=== PATIENT | male | born 1955 | race Caucasian/White ===

== ENCOUNTER → 2016-05-10 | Outpatient (CLI) | payer MEDICAID, OTHER ==
--- NOTE | 2016-05-10 09:02 | NM ---
Nuclear medicine hepatobiliary scan. HISTORY: Pain. The patient received 5.2mCi Tc99m Mebrofenin, 8 fl oz ensure plus orally. There is normal hepatic extraction. The gallbladder is seen by 25 minutes. Ejection fraction is 42% . IMPRESSION: 1. No evidence of cholecystitis. 2. Ejection fraction 42%.
== END | disposition home or self-care (01) ==
LOC: RADNMMAIN 06:46
PROVIDERS: ATTEND Family Medicine
DX: R10.84 Generalized abdominal pain (principal)
CPT/HCPCS: 78226; A9537

== ENCOUNTER → 2016-05-12 | Outpatient (CLI) | payer MEDICAID, OTHER ==
[2016-05-12 14:55] LABS: ALT 57 U/L (21-72); AST 19 U/L (17-59); Alkaline Phosphatase 69 U/L (38-126); Anion Gap 11 mmol/L; Blood Urea Nitrogen 19 mg/dL (9-20); Calcium 9.5 mg/dL (8.4-10.2); Carbon Dioxide 26 mmol/L (22-30); Chloride 105 mmol/L (98-107); Glucose 137 mg/dL (74-99); Non-African American GFR(MDRD) >60 (>60 ml/min/1.73 sqM); Potassium 3.8 mmol/L (3.5-5.1); Sodium 142 mmol/L (137-145); Total Bilirubin 0.6 mg/dL (0.2-1.3); Total Protein 6.7 g/dL (6.3-8.2)
[2016-05-12 14:57] LABS: Hemoglobin A1C 5.2 % (4.2-6.1)
== END | disposition home or self-care (01) ==
LOC: LABWHC1 13:55
PROVIDERS: ATTEND Family Medicine
DX: E89.0 Postprocedural hypothyroidism (principal); R73.9 Hyperglycemia, unspecified
CPT/HCPCS: 36415; 80053; 83036

== ENCOUNTER → 2016-06-23 | Outpatient (CLI) | payer MEDICAID, OTHER ==
[2016-06-23 08:21] LABS: ALT 36 U/L (21-72); AST 21 U/L (17-59); Cholesterol 141 mg/dL (<200); Creatine Kinase 100 U/L (55-170); HDL Cholesterol 44 mg/dL (40-60); Triglycerides 140 mg/dL (<150)
== END | disposition home or self-care (01) ==
LOC: LABWHC1 06:59
PROVIDERS: ATTEND Internal Medicine Interventional Cardiology
DX: E11.9 Type 2 diabetes mellitus without complications (principal); E78.5 Hyperlipidemia, unspecified
CPT/HCPCS: 36415; 80061; 82550; 84450; 84460

== ENCOUNTER 2016-07-14 09:37 | Inpatient (IN) | payer MEDICAID, OTHER ==
[2016-07-14] MEDS ORDERED: SODIUM CHLORIDE 0.9% 500 ML IV STA (10:03)
[2016-07-14] MEDS ORDERED: RX INFO: IV CONTRAST WAS GIVEN 1 EACH MISC MISCELLANE PRN (10:03)
--- NOTE | 2016-07-14 10:16 | ED ---
Abdominal Pain HPI - General Chief Complaint: Abdominal Pain Stated Complaint: abd pain Time Seen by Provider: 07/14/16 09:51 Source: patient Mode of arrival: ambulatory Limitations: no limitations - History of Present Illness Initial Comments: 61-year-old male patient presents to emergency department today for complaints of lower abdominal cramping. Patient states that symptoms started yesterday morning. Patient states that the cramping has been intermittent but does get quite severe at times. Patient states he has had numerous loose stools throughout the night last night. Patient does have a history significant for diverticulitis and has recently been on 4 rounds of antibiotics since March the most recent being Levaquin that he finished yesterday. Patient does report nausea but has not had any vomiting. Patient denies any fever, chills, headaches, dizziness, back pain, chest pain, shortness of breath, or weakness. Denies any difficulty urinating, hematuria, dysuria, frequency, or urgency. Denies any dark black or bloody stools. Has had decreased appetite. - Related Data Home Medications Medication Instructions Recorded Confirmed Atorvastatin [Lipitor] 10 mg PO HS 02/08/16 07/14/16 Hydrochlorothiazide [Hydrodiuril] 25 mg PO DAILY 02/08/16 07/14/16 Losartan Potassium 100 mg PO DAILY 02/08/16 07/14/16 Metoprolol Tartrate [Lopressor] 25 mg PO DAILY 02/08/16 07/14/16 Cholecalciferol [Vitamin D3] 5,000 unit PO DAILY 03/08/16 07/14/16 metFORMIN HCL [Metformin HCl ER] 500 mg PO BID 07/14/16 07/14/16 Allergies Allergy/AdvReac Type Severity Reaction Status Date / Time Penicillins Allergy Rash/Hives Verified 07/14/16 09:48 Review of Systems ROS Statement: Those systems with pertinent positive or pertinent negative responses have been documented in the HPI. ROS Other: All systems not noted in ROS Statement are negative. Past Medical History Past Medical History: Asthma, Diabetes Mellitus, GERD/Reflux, Hyperlipidemia, Hypertension, Thyroid Disorder Additional Past Medical History / Comment(s): "slight asthma", diverticulitis, "pre diabetic", thyroid nodule, History of Any Multi-Drug Resistant Organisms: None Reported Past Surgical History: Adenoidectomy, Hernia Repair, Orthopedic Surgery, Tonsillectomy Additional Past Surgical History / Comment(s): vasectomy, cyst removed from left leg, ganglion cyst rt hand, Past Anesthesia/Blood Transfusion Reactions: No Reported Reaction Past Psychological History: No Psychological Hx Reported Smoking Status: Never smoker Past Alcohol Use History: Occasional Past Drug Use History: None Reported - Past Family History Mother Family Medical History: Cancer Additional Family Medical History / Comment(s): melanoma Father Family Medical History: Cancer General Exam Limitations: no limitations Course Vital Signs 07/14/16 09:46 Temperature 98.1 F Pulse Rate 115 H Respiratory 20 Rate Blood Pressure 137/83 O2 Sat by Pulse 97 Oximetry Medical Decision Making - Medical Decision Making 61-year-old male presented for abdominal pain, diverticulitis. Patient has had multiple recurrent episodes of diverticulitis with treatment. Patient's symptoms are active at this time. Patient will be admitted for IV antibiotics. Patient will have Dr. campos surgeon as requested a family as Dr. Schaefer is on vacation. - Lab Data Result diagrams: 07/14/16 10:21 07/14/16 10:21 Lab Results 07/14/16 07/14/16 07/14/16 Range/Units 10:21 10:21 10:21 WBC 14.6 H (3.8-10.6) k/uL RBC 5.41 (4.30-5.90) m/uL Hgb 15.8 (13.0-17.5) gm/dL Hct 47.7 (39.0-53.0) % MCV 88.1 (80.0-100.0) fL MCH 29.1 (25.0-35.0) pg MCHC 33.1 (31.0-37.0) g/dL RDW 14.5 (11.5-15.5) % Plt Count 206 (150-450) k/uL Neutrophils % 90 % Lymphocytes % 5 % Monocytes % 3 % Eosinophils % 0 % Basophils % 0 % Neutrophils # 13.1 H (1.3-7.7) k/uL Lymphocytes # 0.7 L (1.0-4.8) k/uL Monocytes # 0.5 (0-1.0) k/uL Eosinophils # 0.1 (0-0.7) k/uL Basophils # 0.0 (0-0.2) k/uL Sodium 140 (137-145) mmol/L Potassium 3.5 (3.5-5.1) mmol/L Chloride 105 (98-107) mmol/L Carbon Dioxide 23 (22-30) mmol/L Anion Gap 12 mmol/L BUN 15 (9-20) mg/dL Creatinine 1.14 (0.66-1.25) mg/dL Est GFR (MDRD) Af Amer >60 (>60 ml/min/1.73 sqM) Est GFR (MDRD) Non-Af >60 (>60 ml/min/1.73 sqM) Glucose 134 H (74-99) mg/dL Plasma Lactic Acid Darrick 1.0 (0.7-2.0) mmol/L Calcium 9.4 (8.4-10.2) mg/dL Total Bilirubin 1.1 (0.2-1.3) mg/dL AST 13 L (17-59) U/L ALT 26 (21-72) U/L Alkaline Phosphatase 63 (38-126) U/L Total Protein 6.7 (6.3-8.2) g/dL Albumin 4.1 (3.5-5.0) g/dL Amylase 39 (30-110) U/L Lipase 49 (23-300) U/L Urine Color Urine Appearance (Clear) Urine pH (5.0-8.0) Urine Protein (Negative) Urine Glucose (UA) (Negative) Urine Ketones (Negative) Urine Blood (Negative) Urine Nitrate (Negative) Urine Bilirubin (Negative) Urine Urobilinogen (<2.0) mg/dL Ur Leukocyte Esterase (Negative) Urine RBC (0-5) /hpf Urine WBC (0-5) /hpf 07/14/16 Range/Units 12:05 WBC (3.8-10.6) k/uL RBC (4.30-5.90) m/uL Hgb (13.0-17.5) gm/dL Hct (39.0-53.0) % MCV (80.0-100.0) fL MCH (25.0-35.0) pg MCHC (31.0-37.0) g/dL RDW (11.5-15.5) % Plt Count (150-450) k/uL Neutrophils % % Lymphocytes % % Monocytes % % Eosinophils % % Basophils % % Neutrophils # (1.3-7.7) k/uL Lymphocytes # (1.0-4.8) k/uL Monocytes # (0-1.0) k/uL Eosinophils # (0-0.7) k/uL Basophils # (0-0.2) k/uL Sodium (137-145) mmol/L Potassium (3.5-5.1) mmol/L Chloride (98-107) mmol/L Carbon Dioxide (22-30) mmol/L Anion Gap mmol/L BUN (9-20) mg/dL Creatinine (0.66-1.25) mg/dL Est GFR (MDRD) Af Amer (>60 ml/min/1.73 sqM) Est GFR (MDRD) Non-Af (>60 ml/min/1.73 sqM) Glucose (74-99) mg/dL Plasma Lactic Acid Darrick (0.7-2.0) mmol/L Calcium (8.4-10.2) mg/dL Total Bilirubin (0.2-1.3) mg/dL AST (17-59) U/L ALT (21-72) U/L Alkaline Phosphatase (38-126) U/L Total Protein (6.3-8.2) g/dL Albumin (3.5-5.0) g/dL Amylase (30-110) U/L Lipase (23-300) U/L Urine Color Yellow Urine Appearance Clear (Clear) Urine pH 7.5 (5.0-8.0) Urine Protein 1+ H (Negative) Urine Glucose (UA) Negative (Negative) Urine Ketones Trace H (Negative) Urine Blood Negative (Negative) Urine Nitrate Negative (Negative) Urine Bilirubin Negative (Negative) Urine Urobilinogen <2.0 (<2.0) mg/dL Ur Leukocyte Esterase Negative (Negative) Urine RBC 1 (0-5) /hpf Urine WBC 1 (0-5) /hpf - EKG Data -: EKG Interpreted by [place] EKG obtained at 10:32 AM reveals sinus tachycardia with occasional premature ventricular complexes, nonspecific T-wave abnormality, prolonged QT, ventricular at 106, FL interval 194, QRS 80, QT 444, QTC 589. 07/14/16 11:35 Disposition Clinical Impression: Pancolitis, Diverticulitis Disposition: ADMITTED IP TO THIS [facility] Condition: Stable Time of Disposition: 12:22
[2016-07-14 10:31] LABS: Basophils % (A) 0 %; CH 30.6; CHCM 34.9; Eosinophils # (A) 0.1 k/uL (0-0.7); Eosinophils % (A) 0 %; HCT 47.7 % (39.0-53.0); HDW 2.75; HGB 15.8 gm/dL (13.0-17.5); Luc # (Auto) 0.25; Luc % (Auto) 2; Lymphocytes # (A) 0.7 k/uL (1.0-4.8); Lymphocytes % (A) 5 %; MCH 29.1 pg (25.0-35.0); MCHC 33.1 g/dL (31.0-37.0); MCV 88.1 fL (80.0-100.0); Mean Platelet Volume 7.2; Monocytes # (A) 0.5 k/uL (0-1.0); Monocytes % (A) 3 %; Neutrophils # (A) 13.1 k/uL (1.3-7.7); Neutrophils % (A) 90 %; RBC 5.41 m/uL (4.30-5.90); RDW 14.5 % (11.5-15.5); WBC 14.6 k/uL (3.8-10.6); WBC (Perox) 14.64
[2016-07-14 10:40] LABS: ALT 26 U/L (21-72); AST 13 U/L (17-59); Alkaline Phosphatase 63 U/L (38-126); Amylase 39 U/L (30-110); Anion Gap 12 mmol/L; Blood Urea Nitrogen 15 mg/dL (9-20); Calcium 9.4 mg/dL (8.4-10.2); Carbon Dioxide 23 mmol/L (22-30); Chloride 105 mmol/L (98-107); Glucose 134 mg/dL (74-99); Non-African American GFR(MDRD) >60 (>60 ml/min/1.73 sqM); Potassium 3.5 mmol/L (3.5-5.1); Sodium 140 mmol/L (137-145); Total Bilirubin 1.1 mg/dL (0.2-1.3); Total Protein 6.7 g/dL (6.3-8.2)
--- NOTE | 2016-07-14 10:55 | XR ---
EXAMINATION TYPE: XR KUB DATE OF EXAM: 07/14/2016 10:49 AM CLINICAL DATA: 61-year-old male with generalized abdominal pain and nausea, PHH COMPARISON: None FINDINGS: Lung bases are clear. No evidence for free intraperitoneal air. Note dilated bowel loops. A couple small air-fluid levels in the upper abdomen. Mild scattered stool is noted. No suspicious calcifications seen. IMPRESSION: Nonspecific, nonobstructive bowel gas pattern. No free air. A couple small air-fluid levels in the up per abdomen could reflect a regional ileus or enteritis.
--- NOTE | 2016-07-14 11:42 | CT ---
EXAMINATION TYPE: CT abdomen pelvis w con DATE OF EXAM: 07/14/2016 11:21 AM COMPARISON: 02/14/2012 HISTORY: 61-year-old male with abdominal pain TECHNIQUE: Contiguous axial scanning of the abdomen and pelvis following administration of 100 ml Omn ipaque 300 IV contrast. Delayed images through the kidneys and coronal/sagittal reconstructions perf ormed. CT DLP: 1651.56 mGycm Automated exposure control for dose reduction was used. FINDINGS: Heart is normal size without pericardial effusion. Mild dependent atelectasis without pleural effusio n. There is diminished attenuation of the liver in comparison to the spleen on portal venous phase which could reflect hepatic steatosis. Portal venous system is patent. No biliary ductal dilatation. Gallbladder, adrenal glands, left kidney, spleen, and pancreas show no gross abnormality. Punctate 2 mm nonobstructive calculus lower pole right kidney. Symmetric uptake and excretion of contrast by bot h kidneys. No dilated small bowel, free fluid, or free air. Normal appendix. There is variable circumferential wall thickening involving essentially the entire colon but the grea test degree of inflammation with some corresponding fat stranding at the proximal to mid sigmoid with moderate wall thickening at the mid sigmoid. There is diffuse colonic diverticulosis. The distal sigmoid and rectum are relatively spared Bladder is nondistended. Prostate gland mildly enlarged at 4.9 cm wide. No abnormal not fluid collect ion in the pelvis or pelvic lymphadenopathy. Changes relating to prior vasectomy. Bones: Mild degenerative changes of the hips. No osseous destructive process. IMPRESSION: 1. PANCOLONIC WALL THICKENING SPARING THE DISTAL SIGMOID AND RECTUM. WALL THICKENING AND INFLAMMATION IS MODERATE AT THE MID SIGMOID. CORRELATE FOR INFECTIOUS OR INFLAMMATORY COLITIS. DIRECT VISUALIZATI ON RECOMMENDED AFTER SUCCESSFUL MANAGEMENT. 2. THERE IS DIFFUSE COLONIC DIVERTICULOSIS. SUPERIMPOSED ACUTE DIVERTICULITIS INVOLVING THE SIGMOID C OLON WOULD BE DIFFICULT TO EXCLUDED.
[2016-07-14 12:16] LABS: Appearance,Urine Clear (Clear); Bilirubin,Urine Negative (Negative); Glucose,Urine (UA) Negative (Negative); Ketones,Urine Trace (Negative); Leukocyte Esterase,Urine Negative (Negative); Nitrite,Urine Negative (Negative); PH, Urine 7.5 (5.0-8.0); Particle Count 1039; Protein,Urine 1+ (Negative); RBC,Urine 1 /hpf (0-5); UA Billing (MACRO vs. MICRO) MICRO; Urobilinogen,Urine <2.0 mg/dL (<2.0); WBC,Urine 1 /hpf (0-5)
[2016-07-14] MEDS ORDERED: ONDANSETRON 4 MG/2 ML VIAL IVP STA (12:21)
[2016-07-14] MEDS ORDERED: HYDROmorphone 1 MG/ML 1 ML SYRINGE IVP STA (12:21)
[2016-07-14] MEDS ORDERED: metroNIDAZOLE-NS PMX 500 MG in SALINE 1 100ML.BAG IVPB STA (12:27)
[2016-07-14] MEDS ORDERED: NALOXONE 0.4 MG/ML 1 ML VIAL IV PRN (12:27)
[2016-07-14] MEDS ORDERED: LEVOFLOXACIN 750MG-D5W PMX 750 MG in DEXTROSE/WATER 1 150ML.BAG IVPB STA (12:27)
[2016-07-14] MEDS ORDERED: ACETAMINOPHEN TAB 325 MG TAB PO PRN (12:27)
[2016-07-14] MEDS ORDERED: HYDROmorphone 1 MG/ML 1 ML SYRINGE IV PRN (12:27)
[2016-07-14 12:30] LABS: Specific Gravity,Urine >1.050 (1.001-1.035)
--- NOTE | 2016-07-14 14:56 | P.HPIM ---
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 High for the last few years and was diagnosed previously of recurrent diverticulitis last colonoscopy was 3 years ago patient was recommended that time not to go for any surgical intervention. Patient had several episode of diverticulitis since March 2016 with recurrent episode treated with antibiotic for few days symptom disappeared with recur shortly after. He has been on Cipro for long time. Patient presented to the emergency department at [facility] today complaining of worsening abdominal pain left lower quadrant along with low -grade temperature nausea with no hemorrhage or bleed. CAT scan of the abdomen surprisingly showed pancolitis along with scattered diverticulitis all along the colon area. Patient was started on IV antibiotic with Levaquin was start Flagyl and admit patient to the hospital consult general surgery. Review of Systems Constitutional: Reports anorexia, Reports fatigue, Reports lethargy, Reports malaise, Reports poor appetite, Reports weakness, Reports weight loss, Denies as per HPI, Denies chills, Denies chronic headaches, Denies chronic pain, Denies daytime sleepiness, Denies fever, Denies night sweats, Denies sweats, Denies weight gain Eyes: bilateral as per HPI Ears: bilateral: decreased hearing Ears, nose, mouth and throat: Reports ant. neck pain, Reports nasal congestion, Reports nasal discharge, Reports sinus pain, Reports sinus pressure, Denies as per HPI, Denies bleeding gums, Denies dental pain, Denies dysphagia, Denies epistaxis, Denies headache, Denies hoarseness, Denies mouth pain, Denies neck fullness/pressure, Denies neck lump, Denies nose pain, Denies odynophagia, Denies post-nasal drip, Denies swelling in mouth, Denies swelling in throat, Denies sore throat, Denies vertigo, Denies voice changes Cardiovascular: Reports chest pain, Reports dyspnea on exertion, Reports edema, Reports irregular heart beat, Reports leg edema, Reports orthopnea, Reports palpitations, Reports rapid heart beat, Reports shortness of breath, Denies as per HPI, Denies claudication, Denies decreased exercise tolerance, Denies high blood pressure, Denies lightheadedness, Denies paroxysmal nocturnal dyspnea, Denies phlebitis, Denies syncope Respiratory: Reports congestion, Reports cough, Reports cough with sputum, Reports dyspnea, Reports respiratory infections, Reports wheezing, Denies as per HPI, Denies excessive sputum, Denies hemoptysis, Denies home oxygen, Denies pain, Denies pain on inspiration, Denies pleurisy, Denies sleep apnea, Denies snoring Gastrointestinal: Reports abdominal pain, Reports belching, Reports bloating, Reports change in bowel habits, Reports dyspepsia, Reports early satiety, Reports excessive gas, Reports indigestion, Reports nausea, Denies as per HPI, Denies BRBPR, Denies coffee ground emesis, Denies constipation, Denies diarrhea , Denies heartburn, Denies hematemesis, Denies hematochezia, Denies jaundice, Denies lactose intolerance, Denies loss of appetite, Denies melena, Denies vomiting Genitourinary: Reports flank pain, Reports nocturia, Reports polyuria, Denies as per HPI, Denies decreased libido, Denies difficulties fathering child, Denies discharge, Denies dysuria, Denies erectile dysfunction, Denies genital pain, Denies genital sores, Denies hematuria, Denies impotence, Denies incontinence, Denies kidney stones, Denies testicular lump, Denies testicular pain, Denies urinary frequency, Denies urinary hesitancy, Denies urinary retention Musculoskeletal: Reports limitation of motion, Reports muscle cramps, Reports myalgias, Reports neck pain, Reports neck stiffness, Reports prior amputations, Denies as per HPI, Denies arm numbness/tingling, Denies atrophy, Denies fractures, Denies frequent falls, Denies gait dysfunction, Denies hot joints, Denies leg numbness/tingling, Denies loss of height, Denies low back pain, Denies morning stiffness, Denies muscle weakness, Denies redness of joints, Denies shooting arm pain, Denies shooting leg pain Musculoskeletal: bilateral: ankle pain, ankle stiffness Integumentary: Reports acne, Reports dryness, Reports foot/leg ulcers, Denies as per HPI, Denies boils, Denies brittle nails, Denies change in hair/nails, Denies color changes, Denies darkening of skin, Denies depigmentation, Denies growths, Denies hirsutism, Denies lesions, Denies onychomycosis, Denies pruritus , Denies rash, Denies sores, Denies striae, Denies unusual bruising, Denies wounds Neurological: Reports hearing difficulties, Reports lack of coordination, Reports tingling, Reports transient paralysis, Denies as per HPI, Denies aphasia , Denies balance difficulties, Denies burning pain, Denies change in mentation, Denies change in smell/taste, Denies change in speech, Denies confusion, Denies convulsions, Denies double vision, Denies gait dysfunction, Denies head injury, Denies headaches, Denies loss of vision, Denies memory loss, Denies migraines, Denies motor disturbance, Denies numbness, Denies paralysis, Denies paresthesias , Denies seizures, Denies sensory deficit, Denies spasticity, Denies syncope, Denies tic, Denies tremors, Denies vertigo, Denies weakness, Denies visual changes Psychiatric: Denies as per HPI, Denies anhedonia, Denies anxiety, Denies anxiety attacks, Denies change in appetite, Denies change in libido, Denies change in sleep habits, Denies confusion, Denies depression, Denies difficulty concentrating, Denies disorientation, Denies hallucinations, Denies hopelessness , Denies hypersomnia, Denies insomnia, Denies irritability, Denies memory loss, Denies mood swings, Denies paranoia, Denies sadness/tearfulness, Denies sleep disturbances, Denies suicidal ideation Endocrine: Reports excessive thirst, Reports fatigue, Reports nocturia, Denies as per HPI, Denies cold intolerance, Denies deepening of the voice, Denies excessive sweating, Denies flushing, Denies heat intolerance, Denies high blood sugars, Denies increase in ring/shoe/hat size, Denies low blood sugars, Denies palpitations, Denies polydipsia, Denies polyphagia, Denies polyuria, Denies proptosis, Denies recent glucocorticoid use, Denies thyroid mass, Denies weight change Hematologic/Lymphatic: Reports easy bleeding, Reports easy bruising, Denies as per HPI, Denies lymphadenopathy, Denies lymphedema, Denies thrombophilia Allergic/Immunologic: Reports allergic rhinitis, Denies as per HPI, Denies anaphylaxis, Denies angioedema, Denies gluten intolerance, Denies persistent infections, Denies seasonal allergies, Denies urticaria, Denies wheezing Past Medical History Past Medical History: Asthma, Diabetes Mellitus, GERD/Reflux, Hyperlipidemia, Hypertension, Thyroid Disorder Additional Past Medical History / Comment(s): "slight asthma", diverticulitis, "pre diabetic", thyroid nodule- with removal, History of Any Multi-Drug Resistant Organisms: None Reported Past Surgical History: Adenoidectomy, Hernia Repair, Orthopedic Surgery, Tonsillectomy Additional Past Surgical History / Comment(s): R thyroid lobectomy, vasectomy, cyst removed from left leg, ganglion cyst rt hand, L inguinal hernia repair x2, EGD/colonoscopy 3. Past Anesthesia/Blood Transfusion Reactions: No Reported Reaction Past Psychological History: No Psychological Hx Reported Additional Psychological History / Comment(s): Pt resides with spouse of 34 yrs. He is independent. Smoking Status: Never smoker Past Alcohol Use History: Occasional Past Drug Use History: None Reported - Past Family History Mother Family Medical History: Cancer Additional Family Medical History / Comment(s): melanoma Father Family Medical History: Cancer Medications and Allergies Home Medications Medication Instructions Recorded Confirmed Type Atorvastatin [Lipitor] 10 mg PO HS 02/08/16 07/14/16 History Hydrochlorothiazide [Hydrodiuril] 25 mg PO DAILY 02/08/16 07/14/16 History Losartan Potassium 100 mg PO DAILY 02/08/16 07/14/16 History Metoprolol Tartrate [Lopressor] 25 mg PO DAILY 02/08/16 07/14/16 History Cholecalciferol [Vitamin D3] 5,000 unit PO DAILY 03/08/16 07/14/16 History metFORMIN HCL [Metformin HCl ER] 500 mg PO BID 07/14/16 07/14/16 History Allergies Allergy/AdvReac Type Severity Reaction Status Date / Time Penicillins Allergy Rash/Hives Verified 07/14/16 09:48 Physical Exam - Constitutional General appearance: no average body habitus, cooperative, no disheveled, no mild distress, no morbidly obese, no acute distress, no obese, no severe distress, no thin - EENT Eyes: no abnormal pupil, no anicteric sclerae, no disc margins sharp, no edentulous, no EOMI, no PERRLA, fundus normal, no photophobia, no dentition normal, no poor dentition, no ptosis, no scleral icterus, normal appearance ENT: no hard of hearing, no hearing grossly normal, no NA/AT, normal oropharynx , no other, no pharyngeal erythema, no thrush, no tonsillar exudates, no tonsillar swelling Ears: bilateral: normal, bulging - Neck Neck: no lymphadenopathy, normal ROM, no other, no rigidity, no stridor, no thyromegaly Carotids: bilateral: upstroke normal, upstroke delayed Thyroid: bilateral: normal size, enlarged - Respiratory Respiratory: bilateral: CTA, diminished, dullness, rales - Cardiovascular Rhythm: regular Heart sounds: normal: S1, S2 Abnormal Heart Sounds: systolic murmur, S3 Gallop - Gastrointestinal General gastrointestinal: no absent bowel sounds, no decreased bowel sounds, distended, no hepatomegaly, no hyperactive bowel sounds, no normal bowel sounds , organomegaly, no rigid, no scaphoid, no soft, no splenomegaly, tenderness, no umbilical hernia, no ventral hernia - Integumentary Integumentary: no calor, no cellulitis, no cyanotic, no decreased turgor, no flushed, no jaundiced, normal, no normal turgor, pale, rash, no ulcer - Neurologic Neurologic: CNII-XII intact - Musculoskeletal Musculoskeletal: gait normal, generalized weakness, no strength equal bilaterally, no right sided weakness, no left sided weakness - Psychiatric Psychiatric: A&O x's 3, appropriate affect Results CBC & Chem 7: 07/14/16 10:21 07/14/16 10:21 Thrombosis Risk Factor Assmnt - DVT/VTE Prophylaxis DVT/VTE Prophylaxis: Pharmacologic Prophylaxis ordered, Mechanical Prophylaxis ordered - Choose All That Apply Any of the Below Risk Factors Present?: Yes Each Factor Represents 1 point: Obesity (BMI >25) Other Risk Factors: Yes Each Risk Factor Represents 2 Points: Age 61-74 years Other congenital or acquired thrombophilia - If yes, enter type in comment: No Thrombosis Risk Factor Assessment Total Risk Factor Score: 3 Thrombosis Risk Factor Assessment Level: Moderate Risk Assessment and Plan Plan: 1 severe abdominal pain: Combination of pancolitis along with recurrent diverticulitis will treat diverticulitis patient might require one of medication for colitis slightly but long-term it's all depend of the next expected colonoscopy which will be done in few weeks. 2 severe diverticulitis: Patient will be on Levaquin and Flagyl surgical consultation will be done with the severity of the symptom and recurrent symptoms several times in 1 year patient might require partial colon resection as a best next step after the infection is treated and subtle something again to discuss with the general surgery in detail and planted as an outpatient after this episode this treated. 3 pancolitis: Most likely ischemic colitis versus UC with the current symptoms patient infection be treated for now and CT can be repeated in a few weeks along with colonoscopy to be scheduled in a few weeks. 4 diabetes: Patient has been on metformin continue Accu-Chek with sliding-scale coverage as well. 5 hyperlipidemia: Continue Lipitor 10 mg daily. 6 hypertension: Remain on Hydrea diarrhea along with Lopressor 25 mg a day and losartan 100 mg daily. 7 severe GERD: Patient will be on Pepcid 20 mg daily. 8 DVT prophylaxis: Patient be on heparin 5000 units obtain his twice a day. CODE STATUS: Full code. Expectation from this admission: Patient be in the hospital for more than 2 nights.
--- NOTE | 2016-07-14 15:36 | P.GSCN ---
History of Present Illness Consult date: 07/14/16 Reason for Consult: Abdominal pain History of present illness: Patient with a history of recurrent diverticulitis. Most severe recent episode was in March. He was treated with 3-4 courses of antibiotics at that time. About a week ago the patient started having pain was started on antibiotics. Those antibiotics stopped on Sunday. Yesterday the patient had recurrent pain in the left lower quadrant. It was more severe today. He came to the hospital for evaluation. The patient is been following with Dr. High. His last colonoscopy was 3-4 years ago. Denies rectal bleeding or melena. Some crampy pain. No diarrhea. No fevers. CT shows inflammatory changes however the colon is fairly collapsed limiting the evaluation. The most impressive inflammatory change seems to be in the proximal sigmoid colon. Pandiverticulosis is noted. Patient slightly tachycardic on arrival. White blood cell count 14. Review of Systems The patient denies any acute changes in his vision or hearing, no dysphagia or odynophagia, no chest pain or shortness of breath, no dysuria or hematuria, no headache, no runny nose, no rectal bleeding or melena, no unexplained weight loss Past Medical History Past Medical History: Asthma, Diabetes Mellitus, GERD/Reflux, Hyperlipidemia, Hypertension, Thyroid Disorder Additional Past Medical History / Comment(s): "slight asthma", diverticulitis, "pre diabetic", thyroid nodule- with removal, History of Any Multi-Drug Resistant Organisms: None Reported Past Surgical History: Adenoidectomy, Hernia Repair, Orthopedic Surgery, Tonsillectomy Additional Past Surgical History / Comment(s): R thyroid lobectomy, vasectomy, cyst removed from left leg, ganglion cyst rt hand, L inguinal hernia repair x2, EGD/colonoscopy 3. Past Anesthesia/Blood Transfusion Reactions: No Reported Reaction Past Psychological History: No Psychological Hx Reported Additional Psychological History / Comment(s): Pt resides with spouse of 34 yrs. He is independent. Smoking Status: Never smoker Past Alcohol Use History: Occasional Past Drug Use History: None Reported - Past Family History Mother Family Medical History: Cancer Additional Family Medical History / Comment(s): melanoma Father Family Medical History: Cancer Medications and Allergies Home Medications Medication Instructions Recorded Confirmed Type Atorvastatin [Lipitor] 10 mg PO HS 02/08/16 07/14/16 History Hydrochlorothiazide [Hydrodiuril] 25 mg PO DAILY 02/08/16 07/14/16 History Losartan Potassium 100 mg PO DAILY 02/08/16 07/14/16 History Metoprolol Tartrate [Lopressor] 25 mg PO DAILY 02/08/16 07/14/16 History Cholecalciferol [Vitamin D3] 5,000 unit PO DAILY 03/08/16 07/14/16 History metFORMIN HCL [Metformin HCl ER] 500 mg PO BID 07/14/16 07/14/16 History Allergies Allergy/AdvReac Type Severity Reaction Status Date / Time Penicillins Allergy Rash/Hives Verified 07/14/16 09:48 Surgical - Exam Vital Signs Temp Pulse Resp BP Pulse Ox 98.1 F 115 H 20 137/83 97 07/14/16 09:46 07/14/16 09:46 07/14/16 09:46 07/14/16 09:46 07/14/16 09:46 Physical exam: General: Well-developed, well-nourished HEENT: Normocephalic, sclerae nonicteric Abdomen: Left lower quadrant tenderness, no rebound or guarding Extremities: No edema Neuro: Alert and oriented Results - Labs 07/14/16 10:21 07/14/16 10:21 Assessment and Plan (1) Diverticulitis Narrative/Plan: Given the patient's history and presentation still suspect diverticulitis involving the proximal sigmoid colon. Continue IV antibiotics. Continue liquid diet only. We'll follow with you. Status: Acute
--- NOTE | 2016-07-14 18:22 | P.CONS ---
History of Present Illness - Reason for Consult Consult date: 07/14/16 - Chief Complaint Increasing abdominal pain - History of Present Illness Very pleasant 61-year-old male presents to the emergency center with a several-day history of increasing abdominal pain that has critically worsened today. It was somewhat generalized associated with some nausea and diarrhea fatigue and malaise and low-grade fever. Was not having significant chills or rigors. Also has been feeling poorly with inability to eat over the last couple of days. Because of the increasing symptoms presented emergency center. Computed tomography scan was performed and the patient has been admitted. The concerns to colitis the infectious diseases consultation was requested. This pleasant gentleman relates this evening is feeling slightly better. Pain control is slightly better. He is looking forward to eating some of his clear liquid dinner because he finally has an appetite is not had in 48 hours. He's had some loose stool but no srinath melena or hematochezia. He does relate since March is having allowing significant difficulties related to his diverticulitis. He was back home in [place] when he had about. It is now been on at least 4 courses of antibiotic therapy with Cipro or Levaquin and Flagyl with ongoing symptoms. As a child he difficulties with penicillin as far as a reaction. No further clarification. Review of Systems Feels poorly with abdominal pain. Nausea is improved. HEENT:Denies headache or acute visual change. Denies sinus or mouth discomforts. Denies neck stiffness or pain. Denies significant oral cavity pain. Denies difficulty on swallowing. Lungs: Denies significant shortness of breath, cough, sputum production, or hemoptysis. Cardiovascular: Denies significant shortness of breath, chest pain, chest wall pain, orthopnea, dyspnea on exertion, syncope Gastrointestinal: As per the HPI. No hematemesis or melena. No significant melena or hematochezia. Musculoskeletal: denies significant myalgias or arthralgias. No new joint swelling. Denies new back pain. Skin: Denies new rash or lesions. No new ulcers or wounds are related.. Neuro: Denies headache or visual change. Denies any new onset weakness or difficulty with ambulation. Denies falls or seizures. Psychiatric:Denies anxiety or depression. Endocrine: Denies significant fatigue, denies significant weight loss or weight gain. Past Medical History Past Medical History: Asthma, Diabetes Mellitus, GERD/Reflux, Hyperlipidemia, Hypertension, Thyroid Disorder Additional Past Medical History / Comment(s): "slight asthma", diverticulitis, "pre diabetic", thyroid nodule- with removal, History of Any Multi-Drug Resistant Organisms: None Reported Past Surgical History: Adenoidectomy, Hernia Repair, Orthopedic Surgery, Tonsillectomy Additional Past Surgical History / Comment(s): R thyroid lobectomy, vasectomy, cyst removed from left leg, ganglion cyst rt hand, L inguinal hernia repair x2, EGD/colonoscopy 3. Past Anesthesia/Blood Transfusion Reactions: No Reported Reaction Past Psychological History: No Psychological Hx Reported Additional Psychological History / Comment(s): Pt resides with spouse of 34 yrs. He is independent. Retired. No significant tobacco or alcohol use. No recreational drug use. Traveled back home to [place] in the fall. No recent international travel. Pet dog in the home Smoking Status: Never smoker Past Alcohol Use History: Occasional Past Drug Use History: None Reported - Past Family History Mother Family Medical History: Cancer Additional Family Medical History / Comment(s): melanoma Father Family Medical History: Cancer Medications and Allergies Home Medications and Allergies Comment(s): Current Medications Acetaminophen (Tylenol Tab) 650 mg PO Q6HR PRN PRN Reason: Mild Pain or Fever > 100.5 Hydrocodone Bitart/Acetaminophen (Coram 5-325) 1 each PO Q4HR PRN PRN Reason: Moderate Pain Atorvastatin Calcium (Lipitor) 10 mg PO HS [facility] Hydrochlorothiazide (Hydrodiuril) 25 mg PO DAILY [facility] Hydromorphone HCl (Dilaudid) 1 mg IV Q3HR PRN PRN Reason: Severe Pain Last Admin: 07/14/16 16:00 Dose: 1 mg Sodium Chloride (Saline 0.9%) 1,000 mls @ 75 mls/hr IV .[id number] [facility] Losartan Potassium (Cozaar) 100 mg PO DAILY [facility] Metformin HCl (Glucophage) 500 mg PO AC-BID [facility] Metoprolol Tartrate (Lopressor) 25 mg PO DAILY [facility] Miscellaneous Information (Rx Info: Iv Contrast Was Given) 1 each MISCELLANE DAILY PRN PRN Reason: Per Protocol Stop: 07/16/16 10:08 Last Admin: 07/14/16 10:23 Dose: 1 each Naloxone HCl (Narcan) 0.2 mg IV Q2M PRN PRN Reason: Opioid Reversal Ondansetron HCl (Zofran) 4 mg IVP Q8HR PRN PRN Reason: Nausea And Vomiting Pantoprazole Sodium (Protonix) 40 mg IVP DAILY [facility] Home Medications Medication Instructions Recorded Confirmed Type Atorvastatin [Lipitor] 10 mg PO HS 02/08/16 07/14/16 History Hydrochlorothiazide [Hydrodiuril] 25 mg PO DAILY 02/08/16 07/14/16 History Losartan Potassium 100 mg PO DAILY 02/08/16 07/14/16 History Metoprolol Tartrate [Lopressor] 25 mg PO DAILY 02/08/16 07/14/16 History Cholecalciferol [Vitamin D3] 5,000 unit PO DAILY 03/08/16 07/14/16 History metFORMIN HCL [Metformin HCl ER] 500 mg PO BID 07/14/16 07/14/16 History Allergies Allergy/AdvReac Type Severity Reaction Status Date / Time Penicillins Allergy Rash/Hives Verified 07/14/16 09:48 Physical Exam Vitals: Vital Signs Temp Pulse Resp BP Pulse Ox 07/14/16 14:15 97.0 F L 107 H 16 127/78 99 Very pleasant 61-year-old male who is somewhat uncomfortable this time due to his abdominal pain but relates is feeling slightly better HEENT: Anicteric conjunctiva are pink and moist nasal mucosa grossly intact without significant lesions, there is no thrush. I'll cavity slightly dry dentition in good order Neck: The neck is supple without significant lymphadenopathy or thyromegaly. Lungs: Good bilateral air entry without significant crackles or wheezing. There is no significant bronchial sounds. There is no egophony or dullness. Heart: Regular rate and rhythm with an audible S1-S2, no S3 no S4. There is no significant murmur click or rub, PMI was nondisplaced. Abdomen: Soft distinct tenderness in the left lower quadrant. There is no palpable mass however. Some rebound to the left lower quadrant without srinath rigidity Extremities: The upper extremities have excellent pulses they are symmetric, no significant petechiae or telangiectasia. No splinter hemorrhages were noted. The lower extremities are free from significant edema. The peripheral pulses were 2+ and symmetric. Neuro: Awake alert oriented to person place and time. There are no acute new gross focal sensory motor deficits. Skin is without rash or breakdown Results Results: Laboratory Results WBC 14.6 k/uL (3.8-10.6) H 07/14/16 10:21 RBC 5.41 m/uL (4.30-5.90) 07/14/16 10:21 Hgb 15.8 gm/dL (13.0-17.5) 07/14/16 10: Hct 47.7 % (39.0-53.0) 07/14/16 10: MCV 88.1 fL (80.0-100.0) 07/14/16 10: MCH 29.1 pg (25.0-35.0) 07/14/16 10: MCHC 33.1 g/dL (31.0-37.0) 07/14/16 10: RDW 14.5 % (11.5-15.5) 07/14/16 10: Plt Count 206 k/uL (150-450) 07/14/16 10: Neutrophils % 90 % 07/14/16 10:21 Lymphocytes % 5 % 07/14/16 10: Monocytes % 3 % 07/14/16 10:21 Eosinophils % 0 % 07/14/16 10: Basophils % 0 % 07/14/16 10:21 Neutrophils # 13.1 k/uL (1.3-7.7) H 07/14/16 10:21 Lymphocytes # 0.7 k/uL (1.0-4.8) L 07/14/16 10:21 Monocytes # 0.5 k/uL (0-1.0) 07/14/16 10: Eosinophils # 0.1 k/uL (0-0.7) 07/14/16 10: Basophils # 0.0 k/uL (0-0.2) 07/14/16 10:21 Sodium 140 mmol/L (137-145) 07/14/16 10:21 Potassium 3.5 mmol/L (3.5-5.1) 07/14/16 10: Chloride 105 mmol/L (98-107) 07/14/16 10:21 Carbon Dioxide 23 mmol/L (22-30) 07/14/16 10:21 Anion Gap 12 mmol/L 07/14/16 10:21 BUN 15 mg/dL (9-20) 07/14/16 10:21 Creatinine 1.14 mg/dL (0.66-1.25) 07/14/16 10:21 Est GFR (MDRD) Af Amer >60 (>60 ml/min/1.73 sqM) 07/14/16 10:21 Est GFR (MDRD) Non-Af >60 (>60 ml/min/1.73 sqM) 07/14/16 10:21 Glucose 134 mg/dL (74-99) H 07/14/16 10:21 Plasma Lactic Acid Darrick 1.0 mmol/L (0.7-2.0) 07/14/16 10:21 Calcium 9.4 mg/dL (8.4-10.2) 07/14/16 10:21 Total Bilirubin 1.1 mg/dL (0.2-1.3) 07/14/16 10:21 AST 13 U/L (17-59) L 07/14/16 10:21 ALT 26 U/L (21-72) 07/14/16 10:21 Alkaline Phosphatase 63 U/L (38-126) 07/14/16 10:21 Total Protein 6.7 g/dL (6.3-8.2) 07/14/16 10:21 Albumin 4.1 g/dL (3.5-5.0) 07/14/16 10:21 Amylase 39 U/L (30-110) 07/14/16 10:21 Lipase 49 U/L (23-300) 07/14/16 10:21 Urine Color Yellow 07/14/16 12:05 Urine Appearance Clear (Clear) 07/14/16 12:05 Urine pH 7.5 (5.0-8.0) 07/14/16 12:05 Ur Specific [place] >1.050 (1.001-1.035) H 07/14/16 12:05 Urine Protein 1+ (Negative) H 07/14/16 12:05 Urine Glucose (UA) Negative (Negative) 07/14/16 12:05 Urine Ketones Trace (Negative) H 07/14/16 12:05 Urine Blood Negative (Negative) 07/14/16 12:05 Urine Nitrate Negative (Negative) 07/14/16 12:05 Urine Bilirubin Negative (Negative) 07/14/16 12:05 Urine Urobilinogen <2.0 mg/dL (<2.0) 07/14/16 12:05 Ur Leukocyte Esterase Negative (Negative) 07/14/16 12:05 Urine RBC 1 /hpf (0-5) 07/14/16 12:05 Urine WBC 1 /hpf (0-5) 07/14/16 12:05 CBC & Chem 7: 07/14/16 10:21 07/14/16 10:21 Assessment and Plan (1) Diverticulitis Narrative/Plan: Very pleasant 61-year-old male presents to Hospital with a several-day history of increasing abdominal pain. Associated with nausea and anorexia and inability to eat. Associate with some loose stool but not srinath melena or hematochezia. He was having distinct crampy abdominal pain is now more localized to the left lower quadrant. The computed tomography scan has been reviewed personally with the radiologist. She had evidence of the significant area of diverticulitis to the left lower quadrant at the sigmoid area. His first concerns to pancolitis. Upon close evaluation does appear the bowel wall is normal through the rest of the colon except for some diverticulosis. The active inflammation is limited left lower quadrant this time. No other srinath maneuvers were seen on the computed tomography scan. Leukocytosis is due to his acute diverticulitis. Surgical consult has occurred For antibiotic therapy he's had several courses of the same antibiotic and likely is not responding to this at this time. Penicillin ALLERGY is noted. We 'll treat with ertapenem at this time with very little concerned to extensive ALLERGY to this class of antibiotic based on his history. Cultures in process. Pain control be enhanced. And monitor. Status: Acute (2) Abdominal pain Status: Acute (3) Leukocytosis Status: Acute
[2016-07-14] MEDS: SODIUM CHLORIDE 0.9% 1,000 ML IV SCH ×2 (18:29→20:00)
[2016-07-14] MEDS: metFORMIN 500 MG TAB PO SCH (19:43)
[2016-07-14] MEDS: ERTAPENEM 1 GM in SODIUM CHLORIDE 0.9% 50 ML IVPB SCH (19:48)
[2016-07-14] MEDS: ONDANSETRON 4 MG/2 ML VIAL IVP PRN (19:48)
[2016-07-14] MEDS: KETOROLAC 30 MG/ML 1 ML VIAL IVP SCH (19:49)
[2016-07-14] MEDS: ATORVASTATIN 10 MG TAB PO SCH (19:50)
[2016-07-14] MEDS: FIDAXOMICIN 200 MG TABLET PO SCH (21:23)
[2016-07-15] MEDS: KETOROLAC 30 MG/ML 1 ML VIAL IVP SCH ×4 (00:04→16:58)
[2016-07-15 07:05] LABS: Basophils % (A) 0 %; CH 30.4; Eosinophils # (A) 0.1 k/uL (0-0.7); Eosinophils % (A) 1 %; HCT 40.9 % (39.0-53.0); HDW 2.69; HGB 13.7 gm/dL (13.0-17.5); Luc # (Auto) 0.29; Luc % (Auto) 3; Lymphocytes # (A) 0.7 k/uL (1.0-4.8); Lymphocytes % (A) 8 %; MCH 30.2 pg (25.0-35.0); MCHC 33.6 g/dL (31.0-37.0); MCV 89.8 fL (80.0-100.0); Mean Platelet Volume 7.8; Monocytes # (A) 0.7 k/uL (0-1.0); Monocytes % (A) 8 %; Neutrophils # (A) 7.2 k/uL (1.3-7.7); Neutrophils % (A) 80 %; RBC 4.55 m/uL (4.30-5.90); RDW 14.3 % (11.5-15.5); WBC (Perox) 9.47
[2016-07-15 07:17] LABS: ALT 22 U/L (21-72); AST 11 U/L (17-59); Alkaline Phosphatase 48 U/L (38-126); Anion Gap 7 mmol/L; Blood Urea Nitrogen 17 mg/dL (9-20); Calcium 8.5 mg/dL (8.4-10.2); Carbon Dioxide 27 mmol/L (22-30); Chloride 104 mmol/L (98-107); Glucose 119 mg/dL (74-99); Non-African American GFR(MDRD) 55 (>60 ml/min/1.73 sqM); Potassium 3.9 mmol/L (3.5-5.1); Sodium 138 mmol/L (137-145); Total Bilirubin 0.7 mg/dL (0.2-1.3); Total Protein 5.3 g/dL (6.3-8.2)
[2016-07-15] MEDS: metFORMIN 500 MG TAB PO SCH ×2 (08:51→17:00)
[2016-07-15] MEDS: FIDAXOMICIN 200 MG TABLET PO SCH ×2 (09:01→20:17)
[2016-07-15] MEDS: HYDROCHLOROTHIAZIDE 25 MG TAB PO SCH (09:02)
[2016-07-15] MEDS: ERTAPENEM 1 GM in SODIUM CHLORIDE 0.9% 50 ML IVPB SCH (09:02)
[2016-07-15] MEDS: LOSARTAN 50 MG TAB PO SCH (09:03)
[2016-07-15] MEDS: METOPROLOL TARTRATE 25 MG TAB PO SCH (09:03)
[2016-07-15] MEDS: PANTOPRAZOLE 40 MG/10 ML VIAL IVP SCH (09:04)
[2016-07-15] MEDS: SODIUM CHLORIDE 0.9% 1,000 ML IV SCH (09:45)
--- NOTE | 2016-07-15 11:02 | P.PN ---
Subjective 61-year-old male one of Dr. Panchal patient with past medical history of diabetes, hypertension, hyperlipidemia and asthma who had been seen Dr. High for the last few years and was diagnosed previously of recurrent diverticulitis last colonoscopy was 3 years ago patient was recommended that time not to go for any surgical intervention. Patient had several episode of diverticulitis since March 2016 with recurrent episode treated with antibiotic for few days symptom disappeared with recur shortly after. He has been on Cipro for long time. Patient presented to the emergency department at [facility] today complaining of worsening abdominal pain left lower quadrant along with low -grade temperature nausea with no hemorrhage or bleed. CAT scan of the abdomen surprisingly showed pancolitis along with scattered diverticulitis all along the colon area. Patient was started on IV antibiotic with Levaquin was start Flagyl and admit patient to the hospital consult general surgery. 07/15: Patient has been seen by Dr. guajardo with plan to continue conservative management. Dr. Carroll is seen the patient and he is on ertapenem and deficit. Patient has had 4 stools since last evening. Questran has been added. He is currently tolerating a clear liquid diet. Objective - Vital Signs Vital signs: Vital Signs Temp 97.8 F 07/15/16 07:00 Pulse 88 07/15/16 07:00 Resp 15 07/15/16 07:00 BP 118/76 07/15/16 07:00 Pulse Ox 96 07/15/16 07:00 Intake & Output 07/14/16 07/15/16 07/15/16 18:59 06:59 18:59 Intake Total 1225 180 Balance 1225 180 Intake: Intake, IV Titration 775 Amount Ertapenem 1 gm In Sodium 100 Chloride 0.9% 50 ml @ 100 mls/hr IVPB Q24HR [facility] Rx #:[id number] Sodium Chloride 0.9% 1, 675 000 ml @ 75 mls/hr IV . [id number] [facility] Rx#:[id number] Oral 450 180 Other: Voiding Method Toilet Toilet # Voids 2 2 # Bowel Movements 2 - Exam General appearance: no average body habitus, cooperative, no disheveled, no mild distress, no morbidly obese, no acute distress, no obese, no severe distress, no thin - EENT Eyes: no abnormal pupil, no anicteric sclerae, no disc margins sharp, no edentulous, no EOMI, no PERRLA, fundus normal, no photophobia, no dentition normal, no poor dentition, no ptosis, no scleral icterus, normal appearance ENT: no hard of hearing, no hearing grossly normal, no NA/AT, normal oropharynx , no other, no pharyngeal erythema, no thrush, no tonsillar exudates, no tonsillar swelling Ears: bilateral: normal, bulging - Neck Neck: no lymphadenopathy, normal ROM, no other, no rigidity, no stridor, no thyromegaly Carotids: bilateral: upstroke normal, upstroke delayed Thyroid: bilateral: normal size, enlarged - Respiratory Respiratory: bilateral: CTA, diminished, dullness, rales - Cardiovascular Rhythm: regular Heart sounds: normal: S1, S2 Abnormal Heart Sounds: systolic murmur, S3 Gallop - Gastrointestinal General gastrointestinal: no absent bowel sounds, no decreased bowel sounds, distended, no hepatomegaly, no hyperactive bowel sounds, no normal bowel sounds , organomegaly, no rigid, no scaphoid, no soft, no splenomegaly, tenderness, no umbilical hernia, no ventral hernia - Integumentary Integumentary: no calor, no cellulitis, no cyanotic, no decreased turgor, no flushed, no jaundiced, normal, no normal turgor, pale, rash, no ulcer - Neurologic Neurologic: CNII-XII intact - Musculoskeletal Musculoskeletal: gait normal, generalized weakness, no strength equal bilaterally, no right sided weakness, no left sided weakness - Psychiatric Psychiatric: A&O x's 3, appropriate affect - Labs CBC & Chem 7: 07/15/16 06:49 07/15/16 06:49 Labs: Abnormal Lab Results - Last 24 Hours (Table) 07/15/16 07/15/16 Range/Units 06:49 06:49 Lymphocytes # 0.7 L (1.0-4.8) k/uL Creatinine 1.32 H (0.66-1.25) mg/dL Glucose 119 H (74-99) mg/dL AST 11 L (17-59) U/L Total Protein 5.3 L (6.3-8.2) g/dL Albumin 3.0 L (3.5-5.0) g/dL Microbiology - Last 24 Hours (Table) 07/14/16 18:25 Stool Culture - Preliminary Stool Assessment and Plan Plan: 1 severe abdominal pain: Combination of recurrent diverticulitis and C. difficile colitis. Continue ertapenem and Dificid. Consult appreciated. 2 severe diverticulitis: Continue ertapenem and deficit. 3 pancolitis thought to be less likely. 4 diabetes mellitus type II: Patient has been on metformin continue Accu-Chek with sliding-scale coverage as well. Metformin on hold due to dye. 5 hyperlipidemia: Continue Lipitor 10 mg daily. 6 hypertension: Remain on Hydrea diarrhea along with Lopressor 25 mg a day and losartan 100 mg daily. 7 severe GERD: Patient will be on Pepcid 20 mg daily. 8 DVT prophylaxis: Patient be on heparin 5000 units obtain his twice a day. CODE STATUS: Full code. Discharge plan: Return home Impression and plan of care have been directed as dictated by the signing physician. Lawanda Dawn nurse practitioner acting as scribe for signing physician. Time with Patient: Greater than 30
--- NOTE | 2016-07-15 11:49 | P.PN ---
Subjective Principal diagnosis: Diverticulitis Patient did have some loose stools after his CAT scan was performed. His C. diff did surprisingly come back positive. He is currently on Dificid area his pain is slightly better. No nausea or vomiting. No rectal bleeding. Objective - Vital Signs Vital signs: Vital Signs Temp 97.8 F 07/15/16 07:00 Pulse 88 07/15/16 07:00 Resp 15 07/15/16 07:00 BP 118/76 07/15/16 07:00 Pulse Ox 96 07/15/16 07:00 Intake & Output 07/14/16 07/15/16 07/15/16 18:59 06:59 18:59 Intake Total 1225 180 Balance 1225 180 Intake: Intake, IV Titration 775 Amount Ertapenem 1 gm In Sodium 100 Chloride 0.9% 50 ml @ 100 mls/hr IVPB Q24HR [facility] Rx #:[id number] Sodium Chloride 0.9% 1, 675 000 ml @ 75 mls/hr IV . [id number] [facility] Rx#:[id number] Oral 450 180 Other: Voiding Method Toilet Toilet # Voids 2 2 # Bowel Movements 2 - Exam Abdomen: Soft, mild to moderate left lower quadrant tenderness, no rebound or guarding - Labs CBC & Chem 7: 07/15/16 06:49 07/15/16 06:49 Labs: Abnormal Lab Results - Last 24 Hours (Table) 07/15/16 07/15/16 Range/Units 06:49 06:49 Lymphocytes # 0.7 L (1.0-4.8) k/uL Creatinine 1.32 H (0.66-1.25) mg/dL Glucose 119 H (74-99) mg/dL AST 11 L (17-59) U/L Total Protein 5.3 L (6.3-8.2) g/dL Albumin 3.0 L (3.5-5.0) g/dL Microbiology - Last 24 Hours (Table) 07/14/16 18:25 Stool Culture - Preliminary Stool Assessment and Plan (1) Diverticulitis Narrative/Plan: Continue antibiotics. Continue bowel rest with clear liquids only for now. Will follow. Status: Acute
[2016-07-15] MEDS: CHOLESTYRAMINE (WITH SUGAR) 4 GM PACKET PO SCH ×3 (12:32→20:17)
[2016-07-15] MEDS: ONDANSETRON 4 MG/2 ML VIAL IVP PRN (17:07)
[2016-07-15] MEDS: ATORVASTATIN 10 MG TAB PO SCH (20:17)
[2016-07-15 21:59] LABS: Glucose,Whole Blood 84 mg/dL (75-99)
[2016-07-15] MEDS: HYDROcodone/APAP 5-325MG 1 EACH TAB PO PRN (22:41)
[2016-07-16] MEDS: KETOROLAC 30 MG/ML 1 ML VIAL IVP SCH ×4 (01:55→18:05)
[2016-07-16] MEDS: SODIUM CHLORIDE 0.9% 1,000 ML IV SCH ×2 (06:03→11:33)
[2016-07-16] MEDS ORDERED: metFORMIN 500 MG TAB PO SCH (07:30)
[2016-07-16 07:43] LABS: Glucose,Whole Blood 108 mg/dL (75-99)
[2016-07-16] MEDS: metFORMIN 500 MG TAB PO SCH ×2 (08:45→18:04)
[2016-07-16] MEDS: LOSARTAN 50 MG TAB PO SCH (08:49)
[2016-07-16] MEDS: FIDAXOMICIN 200 MG TABLET PO SCH ×2 (08:49→20:46)
[2016-07-16] MEDS: HYDROCHLOROTHIAZIDE 25 MG TAB PO SCH (08:49)
[2016-07-16] MEDS: CHOLESTYRAMINE (WITH SUGAR) 4 GM PACKET PO SCH ×2 (08:49→18:06)
[2016-07-16] MEDS: METOPROLOL TARTRATE 25 MG TAB PO SCH (08:49)
[2016-07-16] MEDS: PANTOPRAZOLE 40 MG/10 ML VIAL IVP SCH (08:50)
[2016-07-16] MEDS: ERTAPENEM 1 GM in SODIUM CHLORIDE 0.9% 50 ML IVPB SCH (08:50)
--- NOTE | 2016-07-16 10:17 | P.PN ---
Subjective Principal diagnosis: Diverticulitis Patient seems to be feeling better today. Pain is less. No nausea or vomiting. He did have 2 loose stools since yesterday. He is afebrile. He is asking for more to eat. Objective - Vital Signs Vital signs: Vital Signs Temp 97.3 F L 07/16/16 07:00 Pulse 88 07/16/16 07:00 Resp 14 07/16/16 07:00 BP 119/78 07/16/16 07:00 Pulse Ox 95 07/16/16 07:00 Intake & Output 07/15/16 07/16/16 07/16/16 17:59 06:59 18:59 Intake Total 420 Balance 420 Intake: IV Sodium Chloride 0.9% 1, 000 ml @ 75 mls/hr IV . [id number] [facility] Rx#:[id number] Oral 420 Other: Voiding Method Toilet # Voids 1 - Exam Abdomen: Soft, mild distention, tenderness left lower quadrant - Labs CBC & Chem 7: 07/15/16 06:49 07/15/16 06:49 Labs: Abnormal Lab Results - Last 24 Hours (Table) 07/16/16 Range/Units 07:41 POC Glucose (mg/dL) 108 H (75-99) mg/dL Assessment and Plan (1) Diverticulitis Narrative/Plan: Continue antibiotics. Ambulate. Advance diet. Status: Acute
--- NOTE | 2016-07-16 10:40 | P.PN ---
Subjective 61-year-old male one of Dr. Panchal patient with past medical history of diabetes, hypertension, hyperlipidemia and asthma who had been seen Dr. High for the last few years and was diagnosed previously of recurrent diverticulitis last colonoscopy was 3 years ago patient was recommended that time not to go for any surgical intervention. Patient had several episode of diverticulitis since March 2016 with recurrent episode treated with antibiotic for few days symptom disappeared with recur shortly after. He has been on Cipro for long time. Patient presented to the emergency department at [facility] today complaining of worsening abdominal pain left lower quadrant along with low -grade temperature nausea with no hemorrhage or bleed. CAT scan of the abdomen surprisingly showed pancolitis along with scattered diverticulitis all along the colon area. Patient was started on IV antibiotic with Levaquin was start Flagyl and admit patient to the hospital consult general surgery. 07/15: Patient has been seen by Dr. guajardo with plan to continue conservative management. Dr. Carroll is seen the patient and he is on ertapenem and Dificid. Patient has had 4 stools since last evening. Questran has been added. He is currently tolerating a clear liquid diet. 07/16: Patient states that he is feeling much better today. His stools are better mixture of diarrhea and formed. He states his pain is better. He denies any nausea. He is currently on clears. He and are planning for surgery after he has healed from this issue. Anticipate discharge by Sunday. Objective - Vital Signs Vital signs: Vital Signs Temp 97.3 F L 07/16/16 07:00 Pulse 88 07/16/16 07:00 Resp 14 07/16/16 07:00 BP 119/78 07/16/16 07:00 Pulse Ox 95 07/16/16 07:00 Intake & Output 07/15/16 07/16/16 07/16/16 17:59 06:59 18:59 Intake Total 420 Balance 420 Intake: IV Sodium Chloride 0.9% 1, 000 ml @ 75 mls/hr IV . [id number] [facility] Rx#:[id number] Oral 420 Other: Voiding Method Toilet # Voids 1 - Exam General appearance: no average body habitus, cooperative, no disheveled, no mild distress, no morbidly obese, no acute distress, no obese, no severe distress, no thin - EENT Eyes: no abnormal pupil, no anicteric sclerae, no disc margins sharp, no edentulous, no EOMI, no PERRLA, fundus normal, no photophobia, no dentition normal, no poor dentition, no ptosis, no scleral icterus, normal appearance ENT: no hard of hearing, no hearing grossly normal, no NA/AT, normal oropharynx , no other, no pharyngeal erythema, no thrush, no tonsillar exudates, no tonsillar swelling Ears: bilateral: normal, bulging - Neck Neck: no lymphadenopathy, normal ROM, no other, no rigidity, no stridor, no thyromegaly Carotids: bilateral: upstroke normal, upstroke delayed Thyroid: bilateral: normal size, enlarged - Respiratory Respiratory: bilateral: CTA, diminished, dullness, rales - Cardiovascular Rhythm: regular Heart sounds: normal: S1, S2 Abnormal Heart Sounds: systolic murmur, S3 Gallop - Gastrointestinal General gastrointestinal: no absent bowel sounds, no decreased bowel sounds, distended, no hepatomegaly, no hyperactive bowel sounds, no normal bowel sounds , organomegaly, no rigid, no scaphoid, no soft, no splenomegaly, tenderness, no umbilical hernia, no ventral hernia - Integumentary Integumentary: no calor, no cellulitis, no cyanotic, no decreased turgor, no flushed, no jaundiced, normal, no normal turgor, pale, rash, no ulcer - Neurologic Neurologic: CNII-XII intact - Musculoskeletal Musculoskeletal: gait normal, generalized weakness, no strength equal bilaterally, no right sided weakness, no left sided weakness - Psychiatric Psychiatric: A&O x's 3, appropriate affect - Labs CBC & Chem 7: 07/15/16 06:49 07/15/16 06:49 Labs: Abnormal Lab Results - Last 24 Hours (Table) 07/16/16 Range/Units 07:41 POC Glucose (mg/dL) 108 H (75-99) mg/dL Assessment and Plan Plan: 1 severe abdominal pain: Combination of recurrent diverticulitis and C. difficile colitis. Continue ertapenem and Dificid. Consult appreciated. 2 severe diverticulitis: Continue ertapenem and Dificid. 3 pancolitis thought to be less likely. 4 diabetes mellitus type II: Patient has been on metformin continue Accu-Chek with sliding-scale coverage as well. Metformin on hold due to dye. 5 hyperlipidemia: Continue Lipitor 10 mg daily. 6 hypertension: Remain on Hydrea diarrhea along with Lopressor 25 mg a day and losartan 100 mg daily. 7 severe GERD: Patient will be on Pepcid 20 mg daily. 8 DVT prophylaxis: Patient be on heparin 5000 units obtain his twice a day. CODE STATUS: Full code. Discharge plan: Return home Impression and plan of care have been directed as dictated by the signing physician. Lawanda Dawn nurse practitioner acting as scribe for signing physician. Time with Patient: Greater than 30
[2016-07-16 11:17] LABS: Glucose,Whole Blood 85 mg/dL (75-99)
[2016-07-16] MEDS: HYDROcodone/APAP 5-325MG 1 EACH TAB PO PRN (11:33)
[2016-07-16 17:08] LABS: Glucose,Whole Blood 89 mg/dL (75-99)
[2016-07-16 20:31] LABS: Glucose,Whole Blood 98 mg/dL (75-99)
[2016-07-16] MEDS: ATORVASTATIN 10 MG TAB PO SCH (20:46)
[2016-07-17] MEDS: KETOROLAC 30 MG/ML 1 ML VIAL IVP SCH ×4 (00:15→17:49)
[2016-07-17] MEDS: SODIUM CHLORIDE 0.9% 1,000 ML IV SCH (00:15)
[2016-07-17 07:15] LABS: Glucose,Whole Blood 92 mg/dL (75-99)
[2016-07-17] MEDS: metFORMIN 500 MG TAB PO SCH ×2 (07:52→17:47)
[2016-07-17] MEDS: METOPROLOL TARTRATE 25 MG TAB PO SCH (08:27)
[2016-07-17] MEDS: CHOLESTYRAMINE (WITH SUGAR) 4 GM PACKET PO SCH ×2 (08:27→17:47)
[2016-07-17] MEDS: LOSARTAN 50 MG TAB PO SCH (08:27)
[2016-07-17] MEDS: FIDAXOMICIN 200 MG TABLET PO SCH ×2 (08:27→20:09)
[2016-07-17] MEDS: PANTOPRAZOLE 40 MG TABLET PO SCH (08:27)
[2016-07-17] MEDS: HYDROCHLOROTHIAZIDE 25 MG TAB PO SCH (08:28)
[2016-07-17] MEDS: ERTAPENEM 1 GM in SODIUM CHLORIDE 0.9% 50 ML IVPB SCH (10:01)
[2016-07-17 12:06] LABS: CH 30.4; CHCM 33.9; HCT 38.4 % (39.0-53.0); HDW 2.85; HGB 12.7 gm/dL (13.0-17.5); MCH 29.8 pg (25.0-35.0); MCV 90.2 fL (80.0-100.0); Mean Platelet Volume 7.9; RBC 4.26 m/uL (4.30-5.90); RDW 14.1 % (11.5-15.5); WBC 4.8 k/uL (3.8-10.6)
[2016-07-17 12:14] LABS: Glucose,Whole Blood 107 mg/dL (75-99)
[2016-07-17 12:21] LABS: Anion Gap 8 mmol/L; Blood Urea Nitrogen 7 mg/dL (9-20); Carbon Dioxide 27 mmol/L (22-30); Chloride 107 mmol/L (98-107); Glucose 96 mg/dL (74-99); Potassium 3.9 mmol/L (3.5-5.1); Sodium 142 mmol/L (137-145)
[2016-07-17 12:22] LABS: ALT 26 U/L (21-72); AST 11 U/L (17-59); Alkaline Phosphatase 42 U/L (38-126); Calcium 8.9 mg/dL (8.4-10.2); Non-African American GFR(MDRD) >60 (>60 ml/min/1.73 sqM); Total Bilirubin 0.4 mg/dL (0.2-1.3); Total Protein 5.5 g/dL (6.3-8.2)
--- NOTE | 2016-07-17 12:58 | P.PN ---
Subjective 61-year-old male one of Dr. Panchal patient with past medical history of diabetes, hypertension, hyperlipidemia and asthma who had been seen Dr. High for the last few years and was diagnosed previously of recurrent diverticulitis last colonoscopy was 3 years ago patient was recommended that time not to go for any surgical intervention. Patient had several episode of diverticulitis since March 2016 with recurrent episode treated with antibiotic for few days symptom disappeared with recur shortly after. He has been on Cipro for long time. Patient presented to the emergency department at [facility] today complaining of worsening abdominal pain left lower quadrant along with low -grade temperature nausea with no hemorrhage or bleed. CAT scan of the abdomen surprisingly showed pancolitis along with scattered diverticulitis all along the colon area. Patient was started on IV antibiotic with Levaquin was start Flagyl and admit patient to the hospital consult general surgery. 07/15: Patient has been seen by Dr. guajardo with plan to continue conservative management. Dr. Carroll is seen the patient and he is on ertapenem and Dificid. Patient has had 4 stools since last evening. Questran has been added. He is currently tolerating a clear liquid diet. 07/16: Patient states that he is feeling much better today. His stools are better mixture of diarrhea and formed. He states his pain is better. He denies any nausea. He is currently on clears. He and are planning for surgery after he has healed from this issue. Anticipate discharge by Sunday. 07/17: Patient continues to have left lower quadrant discomfort. Recommending using oral pain medications in anticipation that he will be ready for discharge tomorrow. He is currently on clear liquid diet. Stools are less frequent. Objective - Vital Signs Vital signs: Vital Signs Temp 97.9 F 07/17/16 07:00 Pulse 90 07/17/16 07:00 Resp 15 07/17/16 07:00 BP 139/84 07/17/16 07:00 Pulse Ox 95 07/17/16 07:00 Intake & Output 07/16/16 07/17/16 07/17/16 18:59 06:59 18:59 Intake Total 1320 675 Balance 1320 675 Intake: IV 675 Sodium Chloride 0.9% 1, 675 000 ml @ 75 mls/hr IV . [id number] [facility] Rx#:[id number] Oral 1320 Other: Voiding Method Toilet Toilet Toilet # Voids 1 3 - Exam General appearance: no average body habitus, cooperative, no disheveled, no mild distress, no morbidly obese, no acute distress, no obese, no severe distress, no thin - EENT Eyes: no abnormal pupil, no anicteric sclerae, no disc margins sharp, no edentulous, no EOMI, no PERRLA, fundus normal, no photophobia, no dentition normal, no poor dentition, no ptosis, no scleral icterus, normal appearance ENT: no hard of hearing, no hearing grossly normal, no NA/AT, normal oropharynx , no other, no pharyngeal erythema, no thrush, no tonsillar exudates, no tonsillar swelling Ears: bilateral: normal, bulging - Neck Neck: no lymphadenopathy, normal ROM, no other, no rigidity, no stridor, no thyromegaly Carotids: bilateral: upstroke normal, upstroke delayed Thyroid: bilateral: normal size, enlarged - Respiratory Respiratory: bilateral: CTA, diminished, dullness, rales - Cardiovascular Rhythm: regular Heart sounds: normal: S1, S2 Abnormal Heart Sounds: systolic murmur, S3 Gallop - Gastrointestinal General gastrointestinal: no absent bowel sounds, no decreased bowel sounds, distended, no hepatomegaly, no hyperactive bowel sounds, no normal bowel sounds , organomegaly, no rigid, no scaphoid, no soft, no splenomegaly, tenderness, no umbilical hernia, no ventral hernia - Integumentary Integumentary: no calor, no cellulitis, no cyanotic, no decreased turgor, no flushed, no jaundiced, normal, no normal turgor, pale, rash, no ulcer - Neurologic Neurologic: CNII-XII intact - Musculoskeletal Musculoskeletal: gait normal, generalized weakness, no strength equal bilaterally, no right sided weakness, no left sided weakness - Psychiatric Psychiatric: A&O x's 3, appropriate affect - Labs CBC & Chem 7: 07/17/16 11:50 07/17/16 11:50 Assessment and Plan Plan: 1 severe abdominal pain: Combination of recurrent diverticulitis and C. difficile colitis. Continue ertapenem and Dificid. Consult appreciated. 2 severe diverticulitis: Continue ertapenem and Dificid. 3 pancolitis thought to be less likely. 4 diabetes mellitus type II: Patient has been on metformin continue Accu-Chek with sliding-scale coverage as well. Metformin on hold due to dye. 5 hyperlipidemia: Continue Lipitor 10 mg daily. 6 hypertension: Remain on Hydrea diarrhea along with Lopressor 25 mg a day and losartan 100 mg daily. 7 severe GERD: Patient will be on Pepcid 20 mg daily. 8 DVT prophylaxis: Patient be on heparin 5000 units obtain his twice a day. CODE STATUS: Full code. Discharge plan: Return home Impression and plan of care have been directed as dictated by the signing physician. Lawanda Dawn nurse practitioner acting as scribe for signing physician. Time with Patient: Greater than 30
--- NOTE | 2016-07-17 15:37 | P.PN ---
Subjective Principal diagnosis: Diverticulitis patient's pain is improved today. He is tolerating full liquids. Still having some intermittent loose stools. Objective - Vital Signs Vital signs: Vital Signs Temp 97.7 F 07/17/16 15:00 Pulse 80 07/17/16 15:00 Resp 16 07/17/16 15:00 BP 127/80 07/17/16 15:00 Pulse Ox 99 07/17/16 15:00 Intake & Output 07/16/16 07/17/16 07/17/16 18:59 06:59 18:59 Intake Total 1320 675 Balance 1320 675 Intake: IV 675 Sodium Chloride 0.9% 1, 675 000 ml @ 75 mls/hr IV . [id number] [facility] Rx#:[id number] Oral 1320 Other: Voiding Method Toilet Toilet Toilet # Voids 1 3 3 - Exam abdomen: Soft, nondistended, mild left lower quadrant tenderness - Labs CBC & Chem 7: 07/17/16 11:50 07/17/16 11:50 Labs: Abnormal Lab Results - Last 24 Hours (Table) 07/17/16 07/17/16 07/17/16 Range/Units 11:50 11:50 11:54 RBC 4.26 L (4.30-5.90) m/uL Hgb 12.7 L (13.0-17.5) gm/dL Hct 38.4 L (39.0-53.0) % BUN 7 L (9-20) mg/dL POC Glucose (mg/dL) 107 H (75-99) mg/dL AST 11 L (17-59) U/L Total Protein 5.5 L (6.3-8.2) g/dL Albumin 3.1 L (3.5-5.0) g/dL Assessment and Plan (1) Diverticulitis Narrative/Plan: continue IV antibiotics. Advance diet. Anticipate discharge tomorrow. Status: Acute
[2016-07-17 16:51] LABS: Glucose,Whole Blood 92 mg/dL (75-99)
[2016-07-17] MEDS: ATORVASTATIN 10 MG TAB PO SCH (20:09)
[2016-07-17 20:47] LABS: Glucose,Whole Blood 96 mg/dL (75-99)
--- NOTE | 2016-07-17 20:56 | P.PN ---
Subjective Principal diagnosis: Abdominal pain Very pleasant 61-year-old male presents to the emergency center with a several-day history of increasing abdominal pain that has critically worsened today. It was somewhat generalized associated with some nausea and diarrhea fatigue and malaise and low-grade fever. Was not having significant chills or rigors. Also has been feeling poorly with inability to eat over the last couple of days. Because of the increasing symptoms presented emergency center. Computed tomography scan was performed and the patient has been admitted. The concerns to colitis the infectious diseases consultation was requested. This pleasant gentleman relates this evening is feeling slightly better. Pain control is slightly better. He is looking forward to eating some of his clear liquid dinner because he finally has an appetite is not had in 48 hours. He's had some loose stool but no srinath melena or hematochezia. He does relate since March is having allowing significant difficulties related to his diverticulitis. He was back home in [place] when he had about. It is now been on at least 4 courses of antibiotic therapy with Cipro or Levaquin and Flagyl with ongoing symptoms. As a child he difficulties with penicillin as far as a reaction. For his diverticulitis antibiotic therapy was initiated with ertapenem. Is tolerating it very well. As noted the laboratory has found evidence of a positive C. difficile toxin. With treatment patient's feeling considerably better but still has some pain in loose stool at times. With his full liquid diet he's had a significant amount of milk-based products which he usually does not ingest which may have worsened his loose stool Objective - Vital Signs Vital signs: Vital Signs Temp 97.7 F 07/17/16 15:00 Pulse 80 07/17/16 15:00 Resp 16 07/17/16 15:00 BP 127/80 07/17/16 15:00 Pulse Ox 99 07/17/16 15:00 Intake & Output 07/17/16 07/17/16 07/18/16 06:59 18:59 06:59 Intake Total 675 Balance 675 Intake: IV 675 Sodium Chloride 0.9% 1, 675 000 ml @ 75 mls/hr IV . [id number] [facility] Rx#:[id number] Other: Voiding Method Toilet Toilet # Voids 3 3 - Exam Very pleasant 61-year-old male who is somewhat uncomfortable this time due to his abdominal pain but relates is feeling slightly better HEENT: Anicteric conjunctiva are pink and moist nasal mucosa grossly intact without significant lesions, there is no thrush. I'll cavity slightly dry dentition in good order Neck: The neck is supple without significant lymphadenopathy or thyromegaly. Lungs: Good bilateral air entry without significant crackles or wheezing. There is no significant bronchial sounds. There is no egophony or dullness. Heart: Regular rate and rhythm with an audible S1-S2, no S3 no S4. There is no significant murmur click or rub, PMI was nondisplaced. Abdomen: Soft distinct tenderness in the left lower quadrant. There is no palpable mass however. Some rebound to the left lower quadrant without srinath rigidity Extremities: The upper extremities have excellent pulses they are symmetric, no significant petechiae or telangiectasia. No splinter hemorrhages were noted. The lower extremities are free from significant edema. The peripheral pulses were 2+ and symmetric. Neuro: Awake alert oriented to person place and time. There are no acute new gross focal sensory motor deficits. Skin is without rash or breakdown - Labs CBC & Chem 7: 07/17/16 11:50 07/17/16 11:50 Labs: Abnormal Lab Results - Last 24 Hours (Table) 07/17/16 07/17/16 07/17/16 Range/Units 11:50 11:50 11:54 RBC 4.26 L (4.30-5.90) m/uL Hgb 12.7 L (13.0-17.5) gm/dL Hct 38.4 L (39.0-53.0) % BUN 7 L (9-20) mg/dL POC Glucose (mg/dL) 107 H (75-99) mg/dL AST 11 L (17-59) U/L Total Protein 5.5 L (6.3-8.2) g/dL Albumin 3.1 L (3.5-5.0) g/dL Microbiology - Last 24 Hours (Table) 07/14/16 18:25 Stool Culture - Final Stool Laboratory Results WBC 4.8 k/uL (3.8-10.6) 07/17/16 11:50 RBC 4.26 m/uL (4.30-5.90) L 07/17/16 11:50 Hgb 12.7 gm/dL (13.0-17.5) L 07/17/16 11:50 Hct 38.4 % (39.0-53.0) L 07/17/16 11:50 MCV 90.2 fL (80.0-100.0) 07/17/16 11:50 MCH 29.8 pg (25.0-35.0) 07/17/16 11:50 MCHC 33.0 g/dL (31.0-37.0) 07/17/16 11:50 RDW 14.1 % (11.5-15.5) 07/17/16 11:50 Plt Count 196 k/uL (150-450) 07/17/16 11:50 Neutrophils % 80 % 07/15/16 06:49 Lymphocytes % 8 % 07/15/16 06:49 Monocytes % 8 % 07/15/16 06:49 Eosinophils % 1 % 07/15/16 06:49 Basophils % 0 % 07/15/16 06:49 Neutrophils # 7.2 k/uL (1.3-7.7) 07/15/16 06:49 Lymphocytes # 0.7 k/uL (1.0-4.8) L 07/15/16 06:49 Monocytes # 0.7 k/uL (0-1.0) 07/15/16 06:49 Eosinophils # 0.1 k/uL (0-0.7) 07/15/16 06:49 Basophils # 0.0 k/uL (0-0.2) 07/15/16 06:49 Sodium 142 mmol/L (137-145) 07/17/16 11:50 Potassium 3.9 mmol/L (3.5-5.1) 07/17/16 11:50 Chloride 107 mmol/L (98-107) 07/17/16 11:50 Carbon Dioxide 27 mmol/L (22-30) 07/17/16 11:50 Anion Gap 8 mmol/L 07/17/16 11:50 BUN 7 mg/dL (9-20) L 07/17/16 11:50 Creatinine 1.20 mg/dL (0.66-1.25) 07/17/16 11:50 Est GFR (MDRD) Af Amer >60 (>60 ml/min/1.73 sqM) 07/17/16 11:50 Est GFR (MDRD) Non-Af >60 (>60 ml/min/1.73 sqM) 07/17/16 11:50 Glucose 96 mg/dL (74-99) 07/17/16 11:50 POC Glucose (mg/dL) 96 mg/dL (75-99) 07/17/16 20:45 POC Glu [employer] Tower Technician Annamarie Acosta 07/17/16 20:45 Plasma Lactic Acid Darrick 1.0 mmol/L (0.7-2.0) 07/14/16 10:21 Calcium 8.9 mg/dL (8.4-10.2) 07/17/16 11:50 Total Bilirubin 0.4 mg/dL (0.2-1.3) 07/17/16 11:50 AST 11 U/L (17-59) L 07/17/16 11:50 ALT 26 U/L (21-72) 07/17/16 11:50 Alkaline Phosphatase 42 U/L (38-126) 07/17/16 11:50 Total Protein 5.5 g/dL (6.3-8.2) L 07/17/16 11:50 Albumin 3.1 g/dL (3.5-5.0) L 07/17/16 11:50 Amylase 39 U/L (30-110) 07/14/16 10:21 Lipase 49 U/L (23-300) 07/14/16 10:21 Urine Color Yellow 07/14/16 12:05 Urine Appearance Clear (Clear) 07/14/16 12:05 Urine pH 7.5 (5.0-8.0) 07/14/16 12:05 Ur Specific [place] >1.050 (1.001-1.035) H 07/14/16 12:05 Urine Protein 1+ (Negative) H 07/14/16 12:05 Urine Glucose (UA) Negative (Negative) 07/14/16 12:05 Urine Ketones Trace (Negative) H 07/14/16 12:05 Urine Blood Negative (Negative) 07/14/16 12:05 Urine Nitrate Negative (Negative) 07/14/16 12:05 Urine Bilirubin Negative (Negative) 07/14/16 12:05 Urine Urobilinogen <2.0 mg/dL (<2.0) 07/14/16 12:05 Ur Leukocyte Esterase Negative (Negative) 07/14/16 12:05 Urine RBC 1 /hpf (0-5) 07/14/16 12:05 Urine WBC 1 /hpf (0-5) 07/14/16 12:05 C. difficile (EIA) Intrp Positive (Negative) 07/14/16 18:25 Microbiology 07/14/16 18:25 Stool Stool Culture - Final Assessment and Plan (1) Diverticulitis Narrative/Plan: Very pleasant 61-year-old male presents to Hospital with a several-day history of increasing abdominal pain. Associated with nausea and anorexia and inability to eat. Associate with some loose stool but not srinath melena or hematochezia. He was having distinct crampy abdominal pain is now more localized to the left lower quadrant. The computed tomography scan has been reviewed personally with the radiologist. She had evidence of the significant area of diverticulitis to the left lower quadrant at the sigmoid area. His first concerns to pancolitis. Upon close evaluation does appear the bowel wall is normal through the rest of the colon except for some diverticulosis. The active inflammation is limited left lower quadrant this time. No other srinath maneuvers were seen on the computed tomography scan. Leukocytosis is due to his acute diverticulitis. Surgical consult has occurred For antibiotic therapy he's had several courses of the same antibiotic and likely is not responding to this at this time. Penicillin ALLERGY is noted. We 'll treat with ertapenem which he has tolerated well. Has had no difficulty with ALLERGY. But has noted some evidence of C. difficile toxin positive diarrhea and with this Dificid was added. With pain control, and antimicrobial therapy is now considerably improved. Still having some diarrhea that may be dietary related. He still having some left lower quadrant pain but it is markedly improved he believes he is 70% better. Likely patient will be ready for discharge home soon. Intravenous antibiotic therapy is discontinued. We'll treat only with Dificid for now. Monitor his outcome. It is as likely he has not that the current findings on the basis of the colitis from his C. difficile. Treatment of that becomes most important in is difficult to obtain with other antibiotic therapy. Especially since he developed C. diff on Flagyl therapy. We'll make recommendations for outpatient Dificid therapy and monitor. Status: Acute (2) Abdominal pain Status: Acute (3) Leukocytosis Status: Acute
[2016-07-17] MEDS: HYDROcodone/APAP 5-325MG 1 EACH TAB PO PRN (22:00)
[2016-07-18] MEDS: SODIUM CHLORIDE 0.9% 1,000 ML IV SCH ×2 (02:33→10:30)
[2016-07-18] MEDS: KETOROLAC 30 MG/ML 1 ML VIAL IVP SCH ×4 (04:35→17:04)
[2016-07-18 07:11] LABS: CH 30.5; CHCM 34.3; HCT 40.6 % (39.0-53.0); HDW 2.87; HGB 13.4 gm/dL (13.0-17.5); MCH 29.6 pg (25.0-35.0); MCHC 33.1 g/dL (31.0-37.0); MCV 89.5 fL (80.0-100.0); Mean Platelet Volume 7.6; RBC 4.54 m/uL (4.30-5.90); RDW 13.9 % (11.5-15.5); WBC 4.4 k/uL (3.8-10.6)
[2016-07-18 07:33] LABS: ALT 21 U/L (21-72); AST 11 U/L (17-59); Alkaline Phosphatase 49 U/L (38-126); Anion Gap 10 mmol/L; Blood Urea Nitrogen 6 mg/dL (9-20); Calcium 8.8 mg/dL (8.4-10.2); Carbon Dioxide 26 mmol/L (22-30); Chloride 108 mmol/L (98-107); Glucose 88 mg/dL (74-99); Non-African American GFR(MDRD) 57 (>60 ml/min/1.73 sqM); Potassium 3.7 mmol/L (3.5-5.1); Sodium 144 mmol/L (137-145); Total Bilirubin 0.6 mg/dL (0.2-1.3); Total Protein 5.7 g/dL (6.3-8.2)
[2016-07-18 08:03] LABS: Glucose,Whole Blood 87 mg/dL (75-99)
[2016-07-18] MEDS: CHOLESTYRAMINE (WITH SUGAR) 4 GM PACKET PO SCH ×2 (09:21→17:10)
[2016-07-18] MEDS: FIDAXOMICIN 200 MG TABLET PO SCH (09:21)
[2016-07-18] MEDS: LOSARTAN 50 MG TAB PO SCH (09:21)
[2016-07-18] MEDS: metFORMIN 500 MG TAB PO SCH ×2 (09:22→17:10)
[2016-07-18] MEDS: METOPROLOL TARTRATE 25 MG TAB PO SCH (09:22)
[2016-07-18] MEDS: PANTOPRAZOLE 40 MG TABLET PO SCH (09:22)
[2016-07-18] MEDS: HYDROCHLOROTHIAZIDE 25 MG TAB PO SCH (09:22)
[2016-07-18 11:17] VITALS: BP 128/71; PULSE 82; RESP 16; TEMP 97.8
[2016-07-18 12:05] LABS: Glucose,Whole Blood 85 mg/dL (75-99)
--- NOTE | 2016-07-18 14:04 | P.DS ---
Providers Date of admission: 07/14/16 12:34 Expected date of discharge: 07/18/16 Attending physician: Mark Hardwick Consults: 07/17/16 11:41 Consult Physician Routine Consulting Provider: Mark Carroll Consult Reason/Comments: c dif Do you want consulting provider notified?: Already Contacted Primary care physician: Ryder Panchal [facility] Course: 61-year-old male one of Dr. Panchal patient with past medical history of diabetes, hypertension, hyperlipidemia and asthma who had been seen Dr. High for the last few years and was diagnosed previously of recurrent diverticulitis last colonoscopy was 3 years ago patient was recommended that time not to go for any surgical intervention. Patient had several episode of diverticulitis since March 2016 with recurrent episode treated with antibiotic for few days symptom disappeared with recur shortly after. He has been on Cipro for long time. Patient presented to the emergency department at [facility] today complaining of worsening abdominal pain left lower quadrant along with low -grade temperature nausea with no hemorrhage or bleed. CAT scan of the abdomen surprisingly showed pancolitis along with scattered diverticulitis all along the colon area. Patient was started on IV antibiotic with Levaquin was start Flagyl and admit patient to the hospital consult general surgery. 07/15: Patient has been seen by Dr. guajardo with plan to continue conservative management. Dr. Carroll is seen the patient and he is on ertapenem and Dificid. Patient has had 4 stools since last evening. Questran has been added. He is currently tolerating a clear liquid diet. 07/16: Patient states that he is feeling much better today. His stools are better mixture of diarrhea and formed. He states his pain is better. He denies any nausea. He is currently on clears. He and are planning for surgery after he has healed from this issue. Anticipate discharge by Sunday. 07/17: Patient continues to have left lower quadrant discomfort. Recommending using oral pain medications in anticipation that he will be ready for discharge tomorrow. He is currently on clear liquid diet. Stools are less frequent. 07/18: Patient states he had 2 semi-formed stools this morning. Abdominal pain is improving. Patient will be discharged home today in stable condition. Deficid was denied by his insurance company and patient will be on vancomycin orally. Discharge Diagnoses: 1 severe abdominal pain: Combination of recurrent diverticulitis and C. difficile colitis. 2 severe diverticulitis 3 pancolitis thought to be less likely. 4 diabetes mellitus type II 5 hyperlipidemia 6 hypertension 7 severe GERD Discharge plan: Return home Impression and plan of care have been directed as dictated by the signing physician. Lawanda Dawn nurse practitioner acting as scribe for signing physician. CC: Dr. Ryder Panchal Patient Condition at Discharge: Good Plan - Discharge Summary New Discharge Prescriptions: Cholestyramine (with Sugar) [Questran Packet] 4 gm PO BID@1000,1800 #20 packet Vancomycin Oral Solution 250 mg PO Q6HR #280 ml Discharge Medication List Atorvastatin [Lipitor] 10 mg PO HS 02/08/16 [History] Hydrochlorothiazide [Hydrodiuril] 25 mg PO DAILY 02/08/16 [History] Losartan Potassium 100 mg PO DAILY 02/08/16 [History] Metoprolol Tartrate [Lopressor] 25 mg PO DAILY 02/08/16 [History] Cholecalciferol [Vitamin D3] 5,000 unit PO DAILY 03/08/16 [History] metFORMIN HCL [Metformin HCl ER] 500 mg PO BID 07/14/16 [History] Cholestyramine (with Sugar) [Questran Packet] 4 gm PO BID@1000,1800 #20 packet 07/18/16 [Rx] Vancomycin Oral Solution 250 mg PO Q6HR #280 ml 07/18/16 [Rx] Follow up Appointment(s)/Referral(s): Matty Angel MD [Medical Doctor] - 07/27/16 9:40 am Mark Carroll MD [STAFF PHYSICIAN] - 08/03/16 3:30 pm Ryder Panchal MD [Primary Care Provider] - 07/25/16 3:15 pm Discharge Disposition: HOME SELF-CARE
--- NOTE | 2016-07-18 16:50 | P.PN ---
Subjective Principal diagnosis: Diverticulitis Patient feels better today. His pain is improved. He is hoping to go home this evening. Some soft stools but no diarrhea. Objective - Vital Signs Vital signs: Vital Signs Temp 97.8 F 07/18/16 07:00 Pulse 82 07/18/16 07:00 Resp 16 07/18/16 07:00 BP 128/71 07/18/16 07:00 Pulse Ox 96 07/18/16 07:00 Intake & Output 07/17/16 07/18/16 07/18/16 18:59 06:59 18:59 Intake Total 900 160 Balance 900 160 Intake: IV 600 Sodium Chloride 0.9% 1, 600 000 ml @ 75 mls/hr IV . [id number] [facility] Rx#:[id number] Oral 300 160 Other: Voiding Method Toilet Toilet # Voids 3 3 - Exam Abdomen: Soft, minimal left lower quadrant tenderness, nondistended - Labs CBC & Chem 7: 07/18/16 06:44 07/18/16 06:44 Labs: Abnormal Lab Results - Last 24 Hours (Table) 07/18/16 Range/Units 06:44 Chloride 108 H (98-107) mmol/L BUN 6 L (9-20) mg/dL Creatinine 1.28 H (0.66-1.25) mg/dL AST 11 L (17-59) U/L Total Protein 5.7 L (6.3-8.2) g/dL Albumin 3.2 L (3.5-5.0) g/dL Microbiology - Last 24 Hours (Table) 07/14/16 18:25 Stool Culture - Final Stool Assessment and Plan (1) Diverticulitis Narrative/Plan: Home on antibiotics per infectious disease. Follow-up in the office 1-2 weeks. Status: Acute
--- NOTE | 2016-07-18 22:21 | P.PN ---
Subjective Principal diagnosis: Abdominal pain Very pleasant 61-year-old male presents to the emergency center with a several-day history of increasing abdominal pain that has critically worsened today. It was somewhat generalized associated with some nausea and diarrhea fatigue and malaise and low-grade fever. Was not having significant chills or rigors. Also has been feeling poorly with inability to eat over the last couple of days. Because of the increasing symptoms presented emergency center. Computed tomography scan was performed and the patient has been admitted. The concerns to colitis the infectious diseases consultation was requested. This pleasant gentleman relates this evening is feeling slightly better. Pain control is slightly better. He is looking forward to eating some of his clear liquid dinner because he finally has an appetite is not had in 48 hours. He's had some loose stool but no srinath melena or hematochezia. He does relate since March is having allowing significant difficulties related to his diverticulitis. He was back home in [place] when he had about. It is now been on at least 4 courses of antibiotic therapy with Cipro or Levaquin and Flagyl with ongoing symptoms. As a child he difficulties with penicillin as far as a reaction. For his diverticulitis antibiotic therapy was initiated with ertapenem. Is tolerating it very well. As noted the laboratory has found evidence of a positive C. difficile toxin. With treatment patient's feeling considerably better , abdominal pain now nearly resolved, diarrhea better. Ready for discharge to home. Objective - Vital Signs Vital signs: Vital Signs Temp 97.8 F 07/18/16 07:00 Pulse 82 07/18/16 07:00 Resp 16 07/18/16 07:00 BP 128/71 07/18/16 07:00 Pulse Ox 96 07/18/16 07:00 Intake & Output 07/18/16 07/18/16 07/19/16 06:59 18:59 06:59 Intake Total 900 160 Balance 900 160 Intake: IV 600 Sodium Chloride 0.9% 1, 600 000 ml @ 75 mls/hr IV . [id number] [facility] Rx#:[id number] Oral 300 160 Other: Voiding Method Toilet # Voids 3 - Exam Very pleasant 61-year-old male who is somewhat uncomfortable this time due to his abdominal pain but relates is feeling slightly better HEENT: Anicteric conjunctiva are pink and moist nasal mucosa grossly intact without significant lesions, there is no thrush. I'll cavity slightly dry dentition in good order Neck: The neck is supple without significant lymphadenopathy or thyromegaly. Lungs: Good bilateral air entry without significant crackles or wheezing. There is no significant bronchial sounds. There is no egophony or dullness. Heart: Regular rate and rhythm with an audible S1-S2, no S3 no S4. There is no significant murmur click or rub, PMI was nondisplaced. Abdomen: Soft very little tenderness in the left lower quadrant. There is no palpable mass however. Extremities: The upper extremities have excellent pulses they are symmetric, no significant petechiae or telangiectasia. No splinter hemorrhages were noted. The lower extremities are free from significant edema. The peripheral pulses were 2+ and symmetric. Neuro: Awake alert oriented to person place and time. There are no acute new gross focal sensory motor deficits. Skin is without rash or breakdown - Labs CBC & Chem 7: 07/18/16 06:44 07/18/16 06:44 Labs: Abnormal Lab Results - Last 24 Hours (Table) 07/18/16 Range/Units 06:44 Chloride 108 H (98-107) mmol/L BUN 6 L (9-20) mg/dL Creatinine 1.28 H (0.66-1.25) mg/dL AST 11 L (17-59) U/L Total Protein 5.7 L (6.3-8.2) g/dL Albumin 3.2 L (3.5-5.0) g/dL Microbiology - Last 24 Hours (Table) 07/14/16 18:25 Stool Culture - Final Stool Laboratory Results WBC 4.4 k/uL (3.8-10.6) 07/18/16 06:44 RBC 4.54 m/uL (4.30-5.90) 07/18/16 06:44 Hgb 13.4 gm/dL (13.0-17.5) 07/18/16 06:44 Hct 40.6 % (39.0-53.0) 07/18/16 06:44 MCV 89.5 fL (80.0-100.0) 07/18/16 06:44 MCH 29.6 pg (25.0-35.0) 07/18/16 06:44 MCHC 33.1 g/dL (31.0-37.0) 07/18/16 06:44 RDW 13.9 % (11.5-15.5) 07/18/16 06:44 Plt Count 224 k/uL (150-450) 07/18/16 06:44 Neutrophils % 80 % 07/15/16 06:49 Lymphocytes % 8 % 07/15/16 06:49 Monocytes % 8 % 07/15/16 06:49 Eosinophils % 1 % 07/15/16 06:49 Basophils % 0 % 07/15/16 06:49 Neutrophils # 7.2 k/uL (1.3-7.7) 07/15/16 06:49 Lymphocytes # 0.7 k/uL (1.0-4.8) L 07/15/16 06:49 Monocytes # 0.7 k/uL (0-1.0) 07/15/16 06:49 Eosinophils # 0.1 k/uL (0-0.7) 07/15/16 06:49 Basophils # 0.0 k/uL (0-0.2) 07/15/16 06:49 Sodium 144 mmol/L (137-145) 07/18/16 06:44 Potassium 3.7 mmol/L (3.5-5.1) 07/18/16 06:44 Chloride 108 mmol/L (98-107) H 07/18/16 06:44 Carbon Dioxide 26 mmol/L (22-30) 07/18/16 06:44 Anion Gap 10 mmol/L 07/18/16 06:44 BUN 6 mg/dL (9-20) L 07/18/16 06:44 Creatinine 1.28 mg/dL (0.66-1.25) H 07/18/16 06:44 Est GFR (MDRD) Af Amer >60 (>60 ml/min/1.73 sqM) 07/18/16 06:44 Est GFR (MDRD) Non-Af 57 (>60 ml/min/1.73 sqM) 07/18/16 06:44 Glucose 88 mg/dL (74-99) 07/18/16 06:44 POC Glucose (mg/dL) 85 mg/dL (75-99) 07/18/16 12:01 POC Glu Cadd Operator FAVIOLA VasquezClau 07/18/16 12:01 Plasma Lactic Acid Darrick 1.0 mmol/L (0.7-2.0) 07/14/16 10:21 Calcium 8.8 mg/dL (8.4-10.2) 07/18/16 06:44 Total Bilirubin 0.6 mg/dL (0.2-1.3) 07/18/16 06:44 AST 11 U/L (17-59) L 07/18/16 06:44 ALT 21 U/L (21-72) 07/18/16 06:44 Alkaline Phosphatase 49 U/L (38-126) 07/18/16 06:44 Total Protein 5.7 g/dL (6.3-8.2) L 07/18/16 06:44 Albumin 3.2 g/dL (3.5-5.0) L 07/18/16 06:44 Amylase 39 U/L (30-110) 07/14/16 10:21 Lipase 49 U/L (23-300) 07/14/16 10:21 Urine Color Yellow 07/14/16 12:05 Urine Appearance Clear (Clear) 07/14/16 12:05 Urine pH 7.5 (5.0-8.0) 07/14/16 12:05 Ur Specific [place] >1.050 (1.001-1.035) H 07/14/16 12:05 Urine Protein 1+ (Negative) H 07/14/16 12:05 Urine Glucose (UA) Negative (Negative) 07/14/16 12:05 Urine Ketones Trace (Negative) H 07/14/16 12:05 Urine Blood Negative (Negative) 07/14/16 12:05 Urine Nitrate Negative (Negative) 07/14/16 12:05 Urine Bilirubin Negative (Negative) 07/14/16 12:05 Urine Urobilinogen <2.0 mg/dL (<2.0) 07/14/16 12:05 Ur Leukocyte Esterase Negative (Negative) 07/14/16 12:05 Urine RBC 1 /hpf (0-5) 07/14/16 12:05 Urine WBC 1 /hpf (0-5) 07/14/16 12:05 C. difficile (EIA) Intrp Positive (Negative) 07/14/16 18:25 Microbiology 07/14/16 18:25 Stool Stool Culture - Final Assessment and Plan (1) Diverticulitis Narrative/Plan: Very pleasant 61-year-old male presents to Hospital with a several-day history of increasing abdominal pain. Associated with nausea and anorexia and inability to eat. Associate with some loose stool but not srinath melena or hematochezia. He was having distinct crampy abdominal pain is now more localized to the left lower quadrant. The computed tomography scan has been reviewed personally with the radiologist. She had evidence of the significant area of diverticulitis to the left lower quadrant at the sigmoid area. His first concerns to pancolitis. Upon close evaluation does appear the bowel wall is normal through the rest of the colon except for some diverticulosis. The active inflammation is limited left lower quadrant this time. No other srinath maneuvers were seen on the computed tomography scan. Leukocytosis is due to his acute diverticulitis. Surgical consult has occurred For antibiotic therapy he's had several courses of the same antibiotic and likely is not responding to this at this time. Penicillin ALLERGY is noted. We 'll treat with ertapenem which he has tolerated well. Has had no difficulty with ALLERGY. But has noted some evidence of C. difficile toxin positive diarrhea and with this Dificid was added. With pain control, and antimicrobial therapy is now considerably improved. Still having some diarrhea that may be dietary related. He still having some left lower quadrant pain but it is markedly improved he believes he is 70% better. Likely patient will be ready for discharge home soon. Intravenous antibiotic therapy is discontinued. We'll treat only with Dificid for now. Monitor his outcome. It is as likely he has not that the current findings on the basis of the colitis from his C. difficile. Treatment of that becomes most important in is difficult to obtain with other antibiotic therapy. Especially since he developed C. diff on Flagyl therapy. Intravenous antibiotic therapy is discontinued and paitent improved with the treatment of C Diff. Will discharge to home, on oral Vanco since Dificid is not a benifit. Folow in office at end of therapy Is off of antibiotic therapy for diverticulitis, monitor Follow with surgery for surgical plan Status: Acute (2) Abdominal pain Status: Acute (3) Leukocytosis Status: Acute
== END 2016-07-18 20:17 | disposition home or self-care (01) | DRG 372 ==
LOC: EC 09:37 → 3SUR 12:34
PROVIDERS: ADMIT Internal Medicine Geriatric Medicine; ATTEND Internal Medicine Geriatric Medicine
DX: A04.7 Enterocolitis due to Clostridium difficile (principal); K57.32 Diverticulitis of large intestine without perforation or abscess without bleeding; I10 Essential (primary) hypertension; E11.9 Type 2 diabetes mellitus without complications; E78.5 Hyperlipidemia, unspecified; E07.9 Disorder of thyroid, unspecified; K21.9 Gastro-esophageal reflux disease without esophagitis; J45.909 Unspecified asthma, uncomplicated; Z79.84 Long term (current) use of oral hypoglycemic drugs; Z79.899 Other long term (current) drug therapy; Z88.0 Allergy status to penicillin
CPT/HCPCS: 36415; 74000; 74177; 80053; 81001; 82150; 83605; 83690; 85025; 85027; 87045; 87046; 87324; 93005; 96361; 96365; 96375; 99285

== ENCOUNTER → 2016-08-28 | Outpatient (CLI) | payer MEDICAID, OTHER ==
[2016-08-28 07:31] LABS: Basophils % (A) 0 %; CH 30.6; CHCM 34.2; Eosinophils # (A) 0.1 k/uL (0-0.7); Eosinophils % (A) 2 %; HCT 47.3 % (39.0-53.0); HDW 2.81; HGB 15.9 gm/dL (13.0-17.5); Luc % (Auto) 4; Lymphocytes # (A) 1.3 k/uL (1.0-4.8); Lymphocytes % (A) 26 %; MCH 30.2 pg (25.0-35.0); MCHC 33.6 g/dL (31.0-37.0); MCV 89.9 fL (80.0-100.0); Mean Platelet Volume 7.1; Monocytes # (A) 0.3 k/uL (0-1.0); Monocytes % (A) 6 %; Neutrophils % (A) 61 %; RBC 5.26 m/uL (4.30-5.90); RDW 13.8 % (11.5-15.5); WBC 4.9 k/uL (3.8-10.6); WBC (Perox) 4.81
[2016-08-28 07:36] LABS: INR 1.1 (<1.1)
[2016-08-28 07:52] LABS: ALT 37 U/L (21-72); AST 30 U/L (17-59); Alkaline Phosphatase 58 U/L (38-126); Anion Gap 11 mmol/L; Blood Urea Nitrogen 25 mg/dL (9-20); Calcium 9.7 mg/dL (8.4-10.2); Carbon Dioxide 26 mmol/L (22-30); Chloride 106 mmol/L (98-107); Glucose 122 mg/dL (74-99); Non-African American GFR(MDRD) >60 (>60 ml/min/1.73 sqM); Potassium 4.2 mmol/L (3.5-5.1); Sodium 143 mmol/L (137-145); Total Bilirubin 0.9 mg/dL (0.2-1.3); Total Protein 7.2 g/dL (6.3-8.2)
== END | disposition home or self-care (01) ==
LOC: LABWHC1 07:09
PROVIDERS: ATTEND Internal Medicine Infectious Disease
DX: K57.92 Diverticulitis of intestine, part unspecified, without perforation or abscess without bleeding (principal)
CPT/HCPCS: 36415; 80053; 85025; 85610; 85730

== ENCOUNTER 2016-09-04 07:12 | Inpatient (IN) | payer MEDICAID, OTHER ==
[2016-09-01 09:40] VITALS: BMI 29.2
[~2016-09-04 07:12] MED LIST: DEXAMETHASONE SOD PHOSPHATE 10 MG/ML 1 ML VIAL IV ONE; HEPARIN SODIUM,PORCINE 5,000 UNIT/ML 1 ML VIAL SQ ONE; HYDROmorphone 1 MG/ML 1 ML SYRINGE IVP PRN; LACTATED RINGERS 1,000 ML IV SCH; LIDOCAINE 1% 20 ML VIAL (10MG/ML) FOR IV START INTRADERMA PRN; MIDAZOLAM 2 MG/2 ML VIAL IV PRN; ONDANSETRON 4 MG/2 ML VIAL IVP ONE; SCOPOLAMINE 1.5MG/72HR PATCH TRANSDERM ONE
[2016-09-04] MEDS ORDERED: LACTATED RINGERS 1,000 ML IV ONE ×2 (07:35→10:16)
[2016-09-04 07:57] LABS: Glucose,Whole Blood 154 mg/dL (75-99)
[2016-09-04] MEDS ORDERED: LIDOCAINE 1% INJ 10MG/ML (20 ML MDV) ONE (08:45)
[2016-09-04] MEDS ORDERED: ROCURONIUM BROMIDE 10 MG/ML 10 ML VIAL IV ONE (08:45)
[2016-09-04] MEDS ORDERED: SUCCINYLCHOLINE CHLORIDE 100 MG/5 ML SYR IV ONE (08:45)
[2016-09-04] MEDS ORDERED: ePHEDrine 50 MG/ML 1 ML AMP ONE (08:45)
[2016-09-04] MEDS ORDERED: MIDAZOLAM 2 MG/2 ML VIAL ONE (08:45)
[2016-09-04] MEDS ORDERED: GLYCOPYRROLATE 0.2 MG/ML 2 ML VIAL ONE (08:45)
[2016-09-04] MEDS ORDERED: PROPOFOL 10 MG/ML 20 ML VIAL IV ONE (08:45)
[2016-09-04] MEDS ORDERED: NEOSTIGMINE 1 MG/ML 10 ML VIAL ONE (08:45)
[2016-09-04] MEDS ORDERED: fentaNYL (PF) 50 MCG/ML 2 ML AMP ONE (08:45)
[2016-09-04] MEDS: ceFAZolin 2 GM in SODIUM CHLORIDE 0.9% 100 ML IVPB ONE ×2 (08:45→09:43)
[2016-09-04] MEDS: metroNIDAZOLE-NS PMX 500 MG in SALINE 1 100ML.BAG IVPB ONE ×2 (08:55→09:43)
[2016-09-04] MEDS ORDERED: BUPIVACAINE (PF) 0.5% 30 ML VIAL SQ ONE ×2 (09:17)
--- NOTE | 2016-09-04 12:16 | P.OP ---
Date of Procedure: 09/04/16 Preoperative Diagnosis: Chronic diverticulitis Postoperative Diagnosis: Chronic diverticulitis Procedure(s) Performed: Laparoscopic-assisted sigmoid resection Anesthesia: MISTI Surgeon: Daquan High Estimated Blood Loss (ml): 200 Pathology: other (Sigmoid colon) Condition: stable Disposition: PACU Indications for Procedure: The patient is a 61-year-old white male who has had multiple episodes of diverticulitis with the multiple hospitalizations and persistent pain in the left lower quadrant area. His general day to day life was affected. Laparoscopic assisted possible open sigmoid resection was recommended and informed consent was obtained and understood the procedure and potential complication particular bleeding infection surrounding injury etc. and agreed to proceed. Operative Findings: Chronic sigmoid diverticulitis. Description of Procedure: after induction of general endotracheal anesthesia both lower extremities were placed in the low lithotomy position. Becerra catheter was placed. Abdominal wall and perianal area prepped in the usual fashion. Plain was infiltrated into the skin and subcutaneous tissue just adjacent to and above the umbilicus N small transverse incision was made. The fascia was retracted and a Veress needle inserted under direct vision with a satisfactory saline drop test. The peritoneal cavity were then inflated with carbon dioxide to pressure approximately 15 mmHg. The needle was replaced with a 10 mm trocar and the laparoscope inserted. A 5 mm trocar was placed in the right upper quadrant and a 12 mm trocar right suprapubic area under direct vision perforation confirming the adherent to the pelvic sidewall there were no other abnormalities noted. The distal site of resection was selected in the upper rectum where the adjacent fat and mesentery were cleaned off and the bowel divided with the Endo CHRISSY stapler. In the colon. The mesentery was incised on the medial side of the sigmoid colon bowel elevated off the retroperitoneum. Ureter was identified. And preserved. The sigmoid colon and descending colon were mobilized all the way up to the splenic flexure by division of lateral peritoneal attachments. The mesenteric sigmoidal vessels were then divided between the nelson with the Harmonic scalpel. The bowel and mesentery were adequately mobilized to be brought out through transverse incision made suprapubically after the wound protector was placed. The fat and mesentery was then cleaned off the bowel and suture applied and the bowel divided distal to it and the specimen removed. Inserted into the proximal bowel and the pursestring suture fasten onto the shaft and returned into the peritoneal cavity. The stapled anastomosis were then accomplished with the staple being inserted through the rectum. There was no evidence of leakage when tested under saline. The pelvis was thoroughly irrigated. Hemostasis was good and the field was dry. Neck vision. CO2 evacuated. A long incision in the suprapubic area was closed with the running 0 Vicryl for the posterior sheath and peritoneum and #1 PDS for the anterior sheath. The 10 mm trocar site the adjacent to the umbilicus was closed with interrupted 0 Vicryl sutures. All subcutaneous tissues were thoroughly irrigated and the skin closed with 4-0 Monocryl subcu and subcuticular sutures and Dermabond. Dressings were applied. Patient was transferred to the recovery room in good and stable condition.
[2016-09-04] MEDS ORDERED: ONDANSETRON 4 MG/2 ML VIAL IVP PRN (12:20)
[2016-09-04] MEDS: MEPERIDINE 50 MG/ML SYRINGE IVP ONE ×4 (12:25→13:04)
[2016-09-04] MEDS ORDERED: D5-0.45% NACL WITH KCL 20MEQ/L 1,000 ML IV SCH (12:30)
[2016-09-04 12:47] LABS: Glucose,Whole Blood 157 mg/dL (75-99)
[2016-09-04] MEDS ORDERED: 0.9% NACL WITH KCL 20 MEQ/L 1,000 ML IV SCH (13:00)
[2016-09-04] MEDS: KETOROLAC 30 MG/ML 1 ML VIAL IVP PRN (13:55)
[2016-09-04] MEDS: HYDROmorphone 1 MG/ML 1 ML SYRINGE IVP PRN ×2 (17:18→21:42)
[2016-09-04 20:08] LABS: Glucose,Whole Blood 150 mg/dL (75-99)
[2016-09-04] MEDS ORDERED: ALVIMOPAN 12 MG CAPSULE PO SCH (21:00)
[2016-09-04] MEDS: HEPARIN SODIUM,PORCINE 5,000 UNIT/ML 1 ML VIAL SQ SCH (21:27)
[2016-09-04] MEDS: FAMOTIDINE 20 MG/2 ML VIAL IV SCH (21:27)
[2016-09-04] MEDS: ATORVASTATIN 10 MG TAB PO SCH (21:27)
[2016-09-04] MEDS: metFORMIN 500 MG TAB PO SCH (21:35)
[2016-09-05 02:09] LABS: Glucose,Whole Blood 125 mg/dL (75-99)
[2016-09-05] MEDS: 0.9% NACL WITH KCL 20 MEQ/L 1,000 ML IV SCH ×4 (02:10→19:22)
[2016-09-05] MEDS: HYDROmorphone 1 MG/ML 1 ML SYRINGE IVP PRN ×3 (02:33→10:34)
[2016-09-05 07:14] LABS: Glucose,Whole Blood 129 mg/dL (75-99)
[2016-09-05 07:51] LABS: Basophils % (A) 0 %; CH 30.2; Eosinophils % (A) 0 %; HCT 37.4 % (39.0-53.0); HDW 2.58; Luc # (Auto) 0.21; Luc % (Auto) 3; Lymphocytes # (A) 0.9 k/uL (1.0-4.8); Lymphocytes % (A) 13 %; MCH 30.5 pg (25.0-35.0); MCHC 33.2 g/dL (31.0-37.0); MCV 91.9 fL (80.0-100.0); Monocytes # (A) 0.4 k/uL (0-1.0); Monocytes % (A) 6 %; Neutrophils # (A) 5.3 k/uL (1.3-7.7); Neutrophils % (A) 77 %; RBC 4.07 m/uL (4.30-5.90); RDW 13.5 % (11.5-15.5); WBC 6.9 k/uL (3.8-10.6); WBC (Perox) 6.92
[2016-09-05 07:54] LABS: HGB 12.4 gm/dL (13.0-17.5)
[2016-09-05 08:01] LABS: Anion Gap 5 mmol/L; Blood Urea Nitrogen 20 mg/dL (9-20); Calcium 8.2 mg/dL (8.4-10.2); Carbon Dioxide 24 mmol/L (22-30); Chloride 111 mmol/L (98-107); Glucose 112 mg/dL (74-99); Non-African American GFR(MDRD) >60 (>60 ml/min/1.73 sqM); Sodium 140 mmol/L (137-145)
[2016-09-05] MEDS: metFORMIN 500 MG TAB PO SCH ×2 (08:25→17:57)
[2016-09-05] MEDS: ASPIRIN 81 MG CHEW PO SCH (08:25)
[2016-09-05] MEDS: ALVIMOPAN 12 MG CAPSULE PO SCH ×2 (08:25→19:47)
[2016-09-05] MEDS: METOPROLOL TARTRATE 25 MG TAB PO SCH (08:26)
[2016-09-05] MEDS: PANTOPRAZOLE 40 MG TABLET PO SCH (08:26)
[2016-09-05] MEDS: CHOLECALCIFEROL 1,000 UNIT TAB PO SCH (08:26)
[2016-09-05] MEDS: LOSARTAN 50 MG TAB PO SCH (08:28)
[2016-09-05] MEDS: HEPARIN SODIUM,PORCINE 5,000 UNIT/ML 1 ML VIAL SQ SCH ×2 (08:28→19:47)
[2016-09-05] MEDS: FAMOTIDINE 20 MG/2 ML VIAL IV SCH (08:28)
[2016-09-05 12:10] LABS: Glucose,Whole Blood 104 mg/dL (75-99)
--- NOTE | 2016-09-05 12:29 | P.PN ---
Progress Note - Text The patient is stable. No fever. Vitals are good. Tolerating clear liquids. Becerra was removed this morning. Hasn't voided yet. Urine output the about 400 + last 8 hours. Abdomen usual postoperative tenderness incisions look fine. No distention otherwise fairly soft. WBCs normal hemoglobin 12.4. Impression stable postop. Recommendation we will advance his diet tomorrow.
[2016-09-05] MEDS: KETOROLAC 30 MG/ML 1 ML VIAL IVP PRN ×2 (14:55→21:58)
--- NOTE | 2016-09-05 16:43 | P.CONS ---
History of Present Illness - Reason for Consult Consult date: 09/05/16 Medical management Requesting physician: Daquan High - Chief Complaint Laparoscopic sigmoid resection - History of Present Illness This is a pleasant 61-year-old male one of Dr. Panchal patient with past medical history of diabetes, hypertension, hyperlipidemia and asthma who had been seen Dr. High for the last few years and was diagnosed previously of recurrent diverticulitis in the past 10 years, his last colonoscopy was 3 years ago patient was recommended that time not to go for any surgical intervention. Patient had several episode of diverticulitis since initial flare up last March 2016 at [place] [facility], has recurrent episodes since then till his last admission in June 2016 where he developed Clostridium difficile. He comes in now for sigmoid resection performed by Dr. High on 05/2016. No recurrence ofclostridium dificile or diverticulitis or colitis since then. He was seen postoperatively without any complaints of nausea vomiting no diarrhea patient does not have any chest pain or dyspnea, postop[erative pain is under control, he currently is on entereg for management of postoperative ileus and he is doing well. Blood sugars are stable between 125-150 Review of Systems Constitutional: Reports as per HPI, Denies anorexia, Denies chills, Denies chronic headaches, Denies chronic pain, Denies daytime sleepiness, Denies fatigue, Denies fever, Denies lethargy, Denies malaise, Denies night sweats, Denies poor appetite, Denies sweats, Denies weakness, Denies weight gain, Denies weight loss Ears, nose, mouth and throat: Reports as per HPI, Denies ant. neck pain, Denies bleeding gums, Denies dental pain, Denies dysphagia, Denies epistaxis, Denies headache, Denies hoarseness, Denies mouth pain, Denies nasal congestion, Denies nasal discharge, Denies neck fullness/pressure, Denies neck lump, Denies nose pain, Denies odynophagia, Denies post-nasal drip, Denies sinus pain, Denies sinus pressure, Denies swelling in mouth, Denies swelling in throat, Denies sore throat, Denies vertigo, Denies voice changes Cardiovascular: Reports as per HPI, Denies chest pain, Denies claudication, Denies decreased exercise tolerance, Denies dyspnea on exertion, Denies edema, Denies high blood pressure, Denies irregular heart beat, Denies leg edema, Denies lightheadedness, Denies orthopnea, Denies palpitations, Denies paroxysmal nocturnal dyspnea, Denies phlebitis, Denies rapid heart beat, Denies shortness of breath, Denies syncope Respiratory: Reports as per HPI, Denies congestion, Denies cough, Denies cough with sputum, Denies dyspnea, Denies excessive sputum, Denies hemoptysis, Denies home oxygen, Denies pain, Denies pain on inspiration, Denies pleurisy, Denies respiratory infections, Denies sleep apnea, Denies snoring, Denies wheezing Gastrointestinal: Reports as per HPI, Reports abdominal pain, Denies belching, Denies bloating, Denies BRBPR, Denies change in bowel habits, Denies coffee ground emesis, Denies constipation, Denies diarrhea, Denies dyspepsia, Denies early satiety, Denies excessive gas, Denies heartburn, Denies hematemesis, Denies hematochezia, Denies indigestion, Denies jaundice, Denies lactose intolerance, Denies loss of appetite, Denies melena, Denies nausea, Denies vomiting Genitourinary: Reports as per HPI, Reports decreased libido, Denies difficulties fathering child, Denies discharge, Denies dysuria, Denies erectile dysfunction, Denies flank pain, Denies genital pain, Denies genital sores, Denies hematuria, Denies impotence, Denies incontinence, Denies kidney stones, Denies nocturia, Denies polyuria, Denies testicular lump, Denies testicular pain , Denies urinary frequency, Denies urinary hesitancy, Denies urinary retention Musculoskeletal: Reports as per HPI, Denies arm numbness/tingling, Denies atrophy, Denies fractures, Denies frequent falls, Denies gait dysfunction, Denies hot joints, Denies leg numbness/tingling, Denies limitation of motion, Denies loss of height, Denies low back pain, Denies morning stiffness, Denies muscle cramps, Denies muscle weakness, Denies myalgias, Denies neck pain, Denies neck stiffness, Denies prior amputations, Denies redness of joints, Denies shooting arm pain, Denies shooting leg pain Integumentary: Reports as per HPI, Denies acne, Denies boils, Denies brittle nails, Denies change in hair/nails, Denies color changes, Denies darkening of skin, Denies depigmentation, Denies dryness, Denies foot/leg ulcers, Denies growths, Denies hirsutism, Denies lesions, Denies onychomycosis, Denies pruritus , Denies rash, Denies sores, Denies striae, Denies unusual bruising, Denies wounds Neurological: Reports as per HPI, Denies aphasia, Denies ataxia, Denies balance difficulties, Denies burning pain, Denies change in mentation, Denies change in smell/taste, Denies change in speech, Denies confusion, Denies convulsions, Denies double vision, Denies gait dysfunction, Denies head injury, Denies headaches, Denies hearing difficulties, Denies lack of coordination, Denies loss of vision, Denies memory loss, Denies migraines, Denies motor disturbance, Denies numbness, Denies paralysis, Denies paresthesias, Denies seizures, Denies sensory deficit, Denies spasticity, Denies syncope, Denies tic, Denies tingling , Denies transient paralysis, Denies tremors, Denies vertigo, Denies weakness, Denies visual changes Psychiatric: Reports as per HPI, Denies anhedonia, Denies anxiety, Denies anxiety attacks, Denies change in appetite, Denies change in libido, Denies change in sleep habits, Denies confusion, Denies depression, Denies difficulty concentrating, Denies disorientation, Denies hallucinations, Denies hopelessness , Denies hypersomnia, Denies insomnia, Denies irritability, Denies memory loss, Denies mood swings, Denies paranoia, Denies sadness/tearfulness, Denies sleep disturbances, Denies suicidal ideation Endocrine: Reports as per HPI, Denies cold intolerance, Denies deepening of the voice, Denies excessive sweating, Denies excessive thirst, Denies fatigue, Denies flushing, Denies heat intolerance, Denies high blood sugars, Denies increase in ring/shoe/hat size, Denies low blood sugars, Denies nocturia, Denies palpitations, Denies polydipsia, Denies polyphagia, Denies polyuria, Denies proptosis, Denies recent glucocorticoid use, Denies thyroid mass, Denies weight change Hematologic/Lymphatic: Reports as per HPI, Denies easy bleeding, Denies easy bruising, Denies lymphadenopathy, Denies lymphedema, Denies thrombophilia Allergic/Immunologic: Reports as per HPI, Denies allergic rhinitis, Denies anaphylaxis, Denies angioedema, Denies gluten intolerance, Denies persistent infections, Denies seasonal allergies, Denies urticaria, Denies wheezing Past Medical History Past Medical History: Asthma, Diabetes Mellitus, GERD/Reflux, Hyperlipidemia, Hypertension, Thyroid Disorder Additional Past Medical History / Comment(s): NO INHALERS FOR ASTHMA, ALLERGY INDUCED, diverticulitis, HX OF thyroid nodule History of Any Multi-Drug Resistant Organisms: C-DIFF Year Discovered:: 07/14/16 MDRO Source:: STOOL Past Surgical History: Adenoidectomy, Hernia Repair, Orthopedic Surgery, Tonsillectomy Additional Past Surgical History / Comment(s): R thyroid lobectomy, vasectomy, cyst removed from left leg, ganglion cyst rt hand, L inguinal hernia repair x2, EGD/colonoscopy 3. Past Anesthesia/Blood Transfusion Reactions: No Reported Reaction Past Psychological History: No Psychological Hx Reported Additional Psychological History / Comment(s): . Smoking Status: Never smoker Past Alcohol Use History: Occasional Past Drug Use History: None Reported - Past Family History Mother Family Medical History: Cancer Additional Family Medical History / Comment(s): melanoma Father Family Medical History: Cancer Medications and Allergies Home Medications Medication Instructions Recorded Confirmed Type Atorvastatin [Lipitor] 10 mg PO HS 02/08/16 09/04/16 History Hydrochlorothiazide [Hydrodiuril] 25 mg PO QAM 02/08/16 09/04/16 History Losartan Potassium 100 mg PO QAM 02/08/16 09/04/16 History Metoprolol Tartrate [Lopressor] 25 mg PO QAM 02/08/16 09/04/16 History Cholecalciferol [Vitamin D3] 2,000 unit PO DAILY 03/08/16 09/04/16 History metFORMIN HCL [Metformin HCl ER] 500 mg PO HS 07/14/16 09/04/16 History Aspirin [Adult Low Dose Aspirin EC] 81 mg PO DAILY 09/01/16 09/04/16 History Dicyclomine [Bentyl] 10 mg PO TID PRN 09/01/16 09/04/16 History Esomeprazole Magnesium [NexIUM] 40 mg PO DAILY 09/01/16 09/04/16 History Allergies Allergy/AdvReac Type Severity Reaction Status Date / Time Penicillins Allergy Rash/Hives Verified 09/01/16 09:32 Physical Exam Vitals: Vital Signs Temp Pulse Pulse Resp BP Pulse Ox 09/05/16 07:35 98 F 103 H 131/78 91 L 09/05/16 01:23 98.4 F 103 H 16 103/55 92 L 09/04/16 20:00 97.4 F L 96 18 108/71 94 L 09/04/16 17:45 87 131/81 98 09/04/16 15:00 86 127/73 97 09/04/16 14:45 85 120/71 94 L 09/04/16 14:30 83 137/76 96 09/04/16 14:15 81 134/91 94 L 09/04/16 14:00 85 125/87 96 09/04/16 13:45 81 121/82 94 L 09/04/16 13:35 97.8 F 82 15 113/75 94 L 09/04/16 13:30 98.7 F 82 113/75 92 L 09/04/16 13:00 87 16 120/72 93 L 09/04/16 12:45 89 16 121/69 97 09/04/16 12:30 91 16 119/73 98 09/04/16 12:16 98 F 95 14 125/74 96 Intake and Output 09/04/16 09/05/16 09/05/16 22:59 06:59 14:59 Intake Total 600 1225 Output Total 400 500 Balance 600 825 -500 Intake: Intake, IV Titration 600 1225 Amount 0.9% NaCl with KCl 20 Meq 500 1125 /l 1,000 ml @ 150 mls/hr IV .Q6H40M [facility] Rx#: [id number] ceFAZolin 2 gm In Sodium 100 100 Chloride 0.9% 100 ml @ 100 mls/hr IVPB ONCE ONE Rx#:[id number] Output: Urine 400 500 Uretheral (Becerra) 400 500 Other: Voiding Method Indwelling Catheter Indwelling Catheter - Constitutional General appearance: average body habitus, cooperative, no acute distress - EENT Eyes: anicteric sclerae, EOMI, PERRLA, dentition normal, normal appearance ENT: hearing grossly normal, NA/AT, normal oropharynx - Neck Neck: no lymphadenopathy, normal ROM, no other, no rigidity, no stridor, no thyromegaly - Respiratory Respiratory: bilateral: CTA, negative: dullness, rales, rhonchi, wheezing - Cardiovascular Rhythm: regular Heart sounds: normal: S1, S2 Abnormal Heart Sounds: no systolic murmur, no diastolic murmur, no rub, no S3 Gallop, no S4 Gallop, no click, no other - Gastrointestinal Incision is clean approximately 3 cm incision site in from left infra-umbilicus with laparoscopic incisions are all well coaptated General gastrointestinal: decreased bowel sounds, soft - Integumentary Incision is clean without any dehiscence, along the incision which is approximately 3 cm well coaptated and glued Integumentary: normal, normal turgor - Neurologic Neurologic: CNII-XII intact - Musculoskeletal Musculoskeletal: gait normal, strength equal bilaterally - Psychiatric Psychiatric: A&O x's 3, appropriate affect, intact judgment & insight Results CBC & Chem 7: 09/05/16 07:00 09/05/16 07:00 Labs: Abnormal Lab Results - Last 24 Hours (Table) 09/04/16 09/04/16 09/05/16 Range/Units 12:37 20:04 02:05 RBC (4.30-5.90) m/uL Hgb (13.0-17.5) gm/dL Hct (39.0-53.0) % Lymphocytes # (1.0-4.8) k/uL Chloride (98-107) mmol/L Glucose (74-99) mg/dL POC Glucose (mg/dL) 157 H 150 H 125 H (75-99) mg/dL Calcium (8.4-10.2) mg/dL 09/05/16 09/05/16 09/05/16 Range/Units 07:00 07:00 07:12 RBC 4.07 L (4.30-5.90) m/uL Hgb 12.4 L D (13.0-17.5) gm/dL Hct 37.4 L (39.0-53.0) % Lymphocytes # 0.9 L (1.0-4.8) k/uL Chloride 111 H (98-107) mmol/L Glucose 112 H (74-99) mg/dL POC Glucose (mg/dL) 129 H (75-99) mg/dL Calcium 8.2 L (8.4-10.2) mg/dL Laboratory Results WBC 6.9 k/uL (3.8-10.6) 09/05/16 07:00 RBC 4.07 m/uL (4.30-5.90) L 09/05/16 07:00 Hgb 12.4 gm/dL (13.0-17.5) L D 09/05/16 07:00 Hct 37.4 % (39.0-53.0) L 09/05/16 07:00 MCV 91.9 fL (80.0-100.0) 09/05/16 07:00 MCH 30.5 pg (25.0-35.0) 09/05/16 07:00 MCHC 33.2 g/dL (31.0-37.0) 09/05/16 07:00 RDW 13.5 % (11.5-15.5) 09/05/16 07:00 Plt Count 200 k/uL (150-450) 09/05/16 07:00 Neutrophils % 77 % 09/05/16 07:00 Lymphocytes % 13 % 09/05/16 07:00 Monocytes % 6 % 09/05/16 07:00 Eosinophils % 0 % 09/05/16 07:00 Basophils % 0 % 09/05/16 07:00 Neutrophils # 5.3 k/uL (1.3-7.7) 09/05/16 07:00 Lymphocytes # 0.9 k/uL (1.0-4.8) L 09/05/16 07:00 Monocytes # 0.4 k/uL (0-1.0) 09/05/16 07:00 Eosinophils # 0.0 k/uL (0-0.7) 09/05/16 07:00 Basophils # 0.0 k/uL (0-0.2) 09/05/16 07:00 Sodium 140 mmol/L (137-145) 09/05/16 07:00 Potassium 4.0 mmol/L (3.5-5.1) 09/05/16 07:00 Chloride 111 mmol/L (98-107) H 09/05/16 07:00 Carbon Dioxide 24 mmol/L (22-30) 09/05/16 07:00 Anion Gap 5 mmol/L 09/05/16 07:00 BUN 20 mg/dL (9-20) 09/05/16 07:00 Creatinine 1.03 mg/dL (0.66-1.25) 09/05/16 07:00 Est GFR (MDRD) Af Amer >60 (>60 ml/min/1.73 sqM) 09/05/16 07:00 Est GFR (MDRD) Non-Af >60 (>60 ml/min/1.73 sqM) 09/05/16 07:00 Glucose 112 mg/dL (74-99) H 09/05/16 07:00 POC Glucose (mg/dL) 94 mg/dL (75-99) 09/05/16 16:50 POC Glu Car Ferrier FAVIOLA Keara Hunter 09/05/16 16:50 Calcium 8.2 mg/dL (8.4-10.2) L 09/05/16 07:00 Blood Type A Positive 09/01/16 09:30 Blood Type Confirm A Positive 09/04/16 07:54 Blood Type Recheck CABO Indicated 09/01/16 09:30 Antibody Screen NEGATIVE 09/01/16 09:30 Spec Expiration Date 09/06/2016 09/01/16 09:30 Assessment and Plan Plan: 1 recurrent diverticulitis requiring laparoscopic sigmoid resection on [address] High, patient's doing well doing incentive spirometry program, DVT prophylaxis is provided with subcutaneous heparin, patient's postoperative pain is under control, continue on entereg as scheduled for up to 7 days 2 prior history of clostridium difficile a, inactive patient's to continue on probiotics in the form of dietary supplements like yogurt 3 mild blood loss anemia, stable patient's hemoglobin is at 12.4, monitor CBC no need for iron supplementation 4 diabetes is type II: Patient has been on metformin continue Accu-Chek with sliding-scale coverage as well. Sugars are stable diet*advanced as per general surgery 5 hyperlipidemia: Continue Lipitor 10 mg daily. 6 hypertension: Remain on Hydrea diarrhea along with Lopressor 25 mg a day and losartan 100 mg daily. 7 severe GERD: Patient will be on Protonix 8 DVT prophylaxis: Patient be on heparin 5000 units obtain his twice a day. Pulmonary prophylaxis with incentive spirometry, and GI prophylaxis on Protonix CODE STATUS: Full code. Thank you Dr. High in and allowing us to participate in the care of your patient. We're going to follow him with you during this current hospitalization , recommendations will be made depending on his clinical progress.
[2016-09-05 16:52] LABS: Glucose,Whole Blood 94 mg/dL (75-99)
[2016-09-05] MEDS: ATORVASTATIN 10 MG TAB PO SCH (19:47)
[2016-09-05 20:52] LABS: Glucose,Whole Blood 89 mg/dL (75-99)
[2016-09-05] MEDS: HYDROCORTISONE 2.5% RECTAL CREAM 30 GM TUBE RECTAL SCH (22:47)
[2016-09-06] MEDS: KETOROLAC 30 MG/ML 1 ML VIAL IVP PRN (06:25)
[2016-09-06 07:04] LABS: Glucose,Whole Blood 102 mg/dL (75-99)
--- NOTE | 2016-09-06 07:36 | P.PN ---
Progress Note - Text The patient is afebrile. Vitals are stable. Postop day 2. Assisted sigmoid resection. Having frequent urination. Tolerating his liquid diet. Abdomen soft with usual postoperative tenderness. Incisions looked fine. We'll increase his diet. Check his urine. Suspect the has urethral irritation from the Becerra catheter. Continue home meds.
[2016-09-06 07:38] LABS: Basophils % (A) 0 %; CH 30.3; CHCM 33.5; Eosinophils # (A) 0.1 k/uL (0-0.7); Eosinophils % (A) 2 %; HCT 35.8 % (39.0-53.0); HDW 2.63; HGB 11.8 gm/dL (13.0-17.5); Luc # (Auto) 0.17; Luc % (Auto) 3; Lymphocytes # (A) 0.8 k/uL (1.0-4.8); Lymphocytes % (A) 14 %; MCH 29.9 pg (25.0-35.0); MCV 90.8 fL (80.0-100.0); Mean Platelet Volume 7.1; Monocytes # (A) 0.4 k/uL (0-1.0); Monocytes % (A) 6 %; Neutrophils # (A) 4.6 k/uL (1.3-7.7); Neutrophils % (A) 75 %; RBC 3.94 m/uL (4.30-5.90); RDW 13.3 % (11.5-15.5); WBC 6.1 k/uL (3.8-10.6); WBC (Perox) 6.54
[2016-09-06 07:59] LABS: ALT 24 U/L (21-72); AST 18 U/L (17-59); Alkaline Phosphatase 51 U/L (38-126); Anion Gap 8 mmol/L; Blood Urea Nitrogen 11 mg/dL (9-20); Calcium 8.7 mg/dL (8.4-10.2); Carbon Dioxide 22 mmol/L (22-30); Chloride 112 mmol/L (98-107); Glucose 102 mg/dL (74-99); Non-African American GFR(MDRD) >60 (>60 ml/min/1.73 sqM); Potassium 3.6 mmol/L (3.5-5.1); Sodium 142 mmol/L (137-145); Total Bilirubin 0.8 mg/dL (0.2-1.3); Total Protein 5.8 g/dL (6.3-8.2)
[2016-09-06] MEDS: metFORMIN 500 MG TAB PO SCH ×2 (08:48→19:07)
[2016-09-06] MEDS: CHOLECALCIFEROL 1,000 UNIT TAB PO SCH (08:48)
[2016-09-06] MEDS: LOSARTAN 50 MG TAB PO SCH (08:49)
[2016-09-06] MEDS: PANTOPRAZOLE 40 MG TABLET PO SCH (08:49)
[2016-09-06] MEDS: METOPROLOL TARTRATE 25 MG TAB PO SCH (08:49)
[2016-09-06] MEDS: ASPIRIN 81 MG CHEW PO SCH (08:49)
[2016-09-06] MEDS: ALVIMOPAN 12 MG CAPSULE PO SCH ×2 (08:49→21:49)
[2016-09-06] MEDS: HYDROCORTISONE 2.5% RECTAL CREAM 30 GM TUBE RECTAL SCH ×2 (08:53→21:49)
[2016-09-06] MEDS: HEPARIN SODIUM,PORCINE 5,000 UNIT/ML 1 ML VIAL SQ SCH ×2 (08:53→21:45)
[2016-09-06 12:12] LABS: Glucose,Whole Blood 76 mg/dL (75-99)
[2016-09-06 14:32] LABS: Appearance,Urine Clear (Clear); Bilirubin,Urine Negative (Negative); Glucose,Urine (UA) Negative (Negative); Ketones,Urine Trace (Negative); Leukocyte Esterase,Urine Negative (Negative); Nitrite,Urine Negative (Negative); Protein,Urine Trace (Negative); Specific Gravity,Urine 1.014 (1.001-1.035); UA Billing (MACRO vs. MICRO) CHEM; Urobilinogen,Urine <2.0 mg/dL (<2.0)
--- NOTE | 2016-09-06 15:08 | P.PN ---
Subjective This is a pleasant 61-year-old male one of Dr. Panchal patient with past medical history of diabetes, hypertension, hyperlipidemia and asthma who had been seen Dr. High for the last few years and was diagnosed previously of recurrent diverticulitis in the past 10 years, his last colonoscopy was 3 years ago patient was recommended that time not to go for any surgical intervention. Patient had several episode of diverticulitis since initial flare up last March 2016 at [place] [facility], has recurrent episodes since then till his last admission in June 2016 where he developed Clostridium difficile. He comes in now for sigmoid resection performed by Dr. High on 05/2016. No recurrence ofclostridium dificile or diverticulitis or colitis since then. He was seen postoperatively without any complaints of nausea vomiting no diarrhea patient does not have any chest pain or dyspnea, postop[erative pain is under control, he currently is on entereg for management of postoperative ileus and he is doing well. Blood sugars are stable between 125-150 5/3: Patient states he was up urinating almost constantly during the night which is not unusual for him at home. We have ordered bladder scan, a urinalysis and urine culture. He is passing gas. His diet is full liquid to be advanced to soft today. He is ambulating in the hallway without difficulty. Anticipate discharge by Sunday. Objective - Vital Signs Vital signs: Vital Signs Temp 97.1 F L 09/05/16 23:00 Pulse 87 09/05/16 23:00 Resp 16 09/05/16 23:00 BP 119/63 09/05/16 23:00 Pulse Ox 94 L 09/05/16 23:00 Intake & Output 09/05/16 09/06/16 09/06/16 18:59 06:59 18:59 Intake Total 740 Output Total 500 Balance -500 740 Intake: Oral 740 Output: Urine 500 Uretheral (Becerra) 500 Other: Voiding Method Indwelling Catheter Toilet # Voids 3 1 1 - Exam General appearance: average body habitus, cooperative, no acute distress - EENT Eyes: anicteric sclerae, EOMI, PERRLA, dentition normal, normal appearance ENT: hearing grossly normal, NA/AT, normal oropharynx - Neck Neck: no lymphadenopathy, normal ROM, no other, no rigidity, no stridor, no thyromegaly - Respiratory Respiratory: bilateral: CTA, negative: dullness, rales, rhonchi, wheezing - Cardiovascular Rhythm: regular Heart sounds: normal: S1, S2 Abnormal Heart Sounds: no systolic murmur, no diastolic murmur, no rub, no S3 Gallop, no S4 Gallop, no click, no other - Gastrointestinal Incision is clean approximately 3 cm incision site in from left infra-umbilicus with laparoscopic incisions are all well coaptated General gastrointestinal: decreased bowel sounds, soft - Integumentary Incision is clean without any dehiscence, along the incision which is approximately 3 cm well coaptated and glued Integumentary: normal, normal turgor - Neurologic Neurologic: CNII-XII intact - Musculoskeletal Musculoskeletal: gait normal, strength equal bilaterally - Psychiatric Psychiatric: A&O x's 3, appropriate affect, intact judgment & insight - Labs CBC & Chem 7: 09/06/16 07:09 09/06/16 07:09 Labs: Abnormal Lab Results - Last 24 Hours (Table) 09/05/16 09/06/16 09/06/16 Range/Units 12:09 06:57 07:09 RBC 3.94 L (4.30-5.90) m/uL Hgb 11.8 L (13.0-17.5) gm/dL Hct 35.8 L (39.0-53.0) % Lymphocytes # 0.8 L (1.0-4.8) k/uL Chloride (98-107) mmol/L Glucose (74-99) mg/dL POC Glucose (mg/dL) 104 H 102 H (75-99) mg/dL Total Protein (6.3-8.2) g/dL Albumin (3.5-5.0) g/dL 09/06/16 Range/Units 07:09 RBC (4.30-5.90) m/uL Hgb (13.0-17.5) gm/dL Hct (39.0-53.0) % Lymphocytes # (1.0-4.8) k/uL Chloride 112 H (98-107) mmol/L Glucose 102 H (74-99) mg/dL POC Glucose (mg/dL) (75-99) mg/dL Total Protein 5.8 L (6.3-8.2) g/dL Albumin 3.3 L (3.5-5.0) g/dL Assessment and Plan Plan: 1 recurrent diverticulitis requiring laparoscopic sigmoid resection on [address] High, patient's doing well doing incentive spirometry program, DVT prophylaxis is provided with subcutaneous heparin, patient's postoperative pain is under control, continue on entereg as scheduled for up to 7 days 2 prior history of clostridium difficile a, inactive patient's to continue on probiotics in the form of dietary supplements like yogurt 3 mild blood loss anemia, stable patient's hemoglobin is at 12.4, monitor CBC no need for iron supplementation 4 diabetes is type II: Patient has been on metformin continue Accu-Chek with sliding-scale coverage as well. Sugars are stable diet*advanced as per general surgery 5 hyperlipidemia: Continue Lipitor 10 mg daily. 6 hypertension: Remain on Hydrea diarrhea along with Lopressor 25 mg a day and losartan 100 mg daily. 7 severe GERD: Patient will be on Protonix 8 DVT prophylaxis: Patient be on heparin 5000 units obtain his twice a day. Pulmonary prophylaxis with incentive spirometry, and GI prophylaxis on Protonix 9 urinary frequency. Bladder scan postvoid, urinalysis, urine culture. CODE STATUS: Full code. Discharge plan: Return home Impression and plan of care have been directed as dictated by the signing physician. Lawanda Dawn nurse practitioner acting as scribe for signing physician. Time with Patient: Greater than 30
[2016-09-06] MEDS: HYDROcodone/APAP 7.5-325MG 1 EACH TAB PO PRN ×2 (16:44→23:15)
[2016-09-06 16:57] LABS: Glucose,Whole Blood 82 mg/dL (75-99)
[2016-09-06 20:22] LABS: Glucose,Whole Blood 96 mg/dL (75-99)
[2016-09-06] MEDS: ATORVASTATIN 10 MG TAB PO SCH (21:45)
[2016-09-07] MEDS: HYDROmorphone 1 MG/ML 1 ML SYRINGE IVP PRN (03:30)
[2016-09-07 07:25] LABS: Basophils % (A) 0 %; CH 30.6; CHCM 33.7; Eosinophils # (A) 0.2 k/uL (0-0.7); Eosinophils % (A) 5 %; HCT 35.7 % (39.0-53.0); HDW 2.63; HGB 11.9 gm/dL (13.0-17.5); Luc # (Auto) 0.19; Luc % (Auto) 4; Lymphocytes # (A) 1.1 k/uL (1.0-4.8); Lymphocytes % (A) 23 %; MCH 30.4 pg (25.0-35.0); MCHC 33.3 g/dL (31.0-37.0); MCV 91.3 fL (80.0-100.0); Mean Platelet Volume 7.2; Monocytes # (A) 0.2 k/uL (0-1.0); Monocytes % (A) 5 %; Neutrophils # (A) 2.9 k/uL (1.3-7.7); Neutrophils % (A) 62 %; RBC 3.91 m/uL (4.30-5.90); RDW 13.3 % (11.5-15.5); WBC 4.6 k/uL (3.8-10.6); WBC (Perox) 4.93
[2016-09-07 07:28] LABS: Glucose,Whole Blood 98 mg/dL (75-99)
[2016-09-07 07:44] LABS: ALT 29 U/L (21-72); AST 16 U/L (17-59); Alkaline Phosphatase 41 U/L (38-126); Anion Gap 8 mmol/L; Blood Urea Nitrogen 9 mg/dL (9-20); Calcium 8.7 mg/dL (8.4-10.2); Carbon Dioxide 25 mmol/L (22-30); Chloride 109 mmol/L (98-107); Glucose 93 mg/dL (74-99); Non-African American GFR(MDRD) >60 (>60 ml/min/1.73 sqM); Sodium 142 mmol/L (137-145); Total Bilirubin 0.6 mg/dL (0.2-1.3); Total Protein 5.5 g/dL (6.3-8.2)
[2016-09-07] MEDS: ALVIMOPAN 12 MG CAPSULE PO SCH ×2 (08:01→21:11)
[2016-09-07] MEDS: ASPIRIN 81 MG CHEW PO SCH (08:01)
[2016-09-07] MEDS: METOPROLOL TARTRATE 25 MG TAB PO SCH (08:01)
[2016-09-07] MEDS: CHOLECALCIFEROL 1,000 UNIT TAB PO SCH (08:01)
[2016-09-07] MEDS: PANTOPRAZOLE 40 MG TABLET PO SCH (08:02)
[2016-09-07] MEDS: LOSARTAN 50 MG TAB PO SCH (08:02)
[2016-09-07] MEDS: metFORMIN 500 MG TAB PO SCH ×2 (08:03→17:42)
[2016-09-07] MEDS: HEPARIN SODIUM,PORCINE 5,000 UNIT/ML 1 ML VIAL SQ SCH ×2 (08:03→21:11)
[2016-09-07] MEDS: HYDROCORTISONE 2.5% RECTAL CREAM 30 GM TUBE RECTAL SCH (08:11)
[2016-09-07 11:45] LABS: Glucose,Whole Blood 104 mg/dL (75-99)
--- NOTE | 2016-09-07 12:20 | P.PN ---
Progress Note - Text Patient is tolerating a full liquid diet. Had the a few bowel movement since last night and some flatus. Denies any nausea or vomiting. Voiding much better full amounts and less frequently now. On examination the patient is afebrile ambulating vitals are good abdomen soft with usual postoperative tenderness or evidence of infection. Impression progressively improving postoperative course. We will advance his diet hopefully can be discharged by tomorrow.
[2016-09-07] MEDS: HYDROcodone/APAP 7.5-325MG 1 EACH TAB PO PRN ×2 (14:05→21:12)
--- NOTE | 2016-09-07 15:58 | P.PN ---
Subjective Principal diagnosis: This is a pleasant 61-year-old male one of Dr. Panchal patient with past medical history of diabetes, hypertension, hyperlipidemia and asthma who had been seen Dr. High for the last few years and was diagnosed previously of recurrent diverticulitis in the past 10 years, his last colonoscopy was 3 years ago patient was recommended that time not to go for any surgical intervention. Patient had several episode of diverticulitis since initial flare up last March 2016 at [place] emergency room, has recurrent episodes since then till his last admission in June 2016 where he developed Clostridium difficile. He comes in now for sigmoid resection performed by Dr. High on 05/2016. No recurrence ofclostridium dificile or diverticulitis or colitis since then. He was seen postoperatively without any complaints of nausea vomiting no diarrhea patient does not have any chest pain or dyspnea, postop[erative pain is under control, he currently is on entereg for management of postoperative ileus and he is doing well. Blood sugars are stable between 125-150 5/3: Patient states he was up urinating almost constantly during the night which is not unusual for him at home. We have ordered bladder scan, a urinalysis and urine culture. He is passing gas. His diet is full liquid to be advanced to soft today. He is ambulating in the hallway without difficulty. Anticipate discharge by Sunday. This is a pleasant 61-year-old male one of Dr. Panchal patient with past medical history of diabetes, hypertension, hyperlipidemia and asthma who had been seen Dr. High for the last few years and was diagnosed previously of recurrent diverticulitis in the past 10 years, his last colonoscopy was 3 years ago patient was recommended that time not to go for any surgical intervention. Patient had several episode of diverticulitis since initial flare up last March 2016 at [place] emergency room, has recurrent episodes since then till his last admission in June 2016 where he developed Clostridium difficile. He comes in now for sigmoid resection performed by Dr. High on 05/2016. No recurrence ofclostridium dificile or diverticulitis or colitis since then. He was seen postoperatively without any complaints of nausea vomiting no diarrhea patient does not have any chest pain or dyspnea, postop[erative pain is under control, he currently is on entereg for management of postoperative ileus and he is doing well. Blood sugars are stable between 125-150 5/3: Patient states he was up urinating almost constantly during the night which is not unusual for him at home. We have ordered bladder scan, a urinalysis and urine culture. He is passing gas. His diet is full liquid to be advanced to soft today. He is ambulating in the hallway without difficulty. Anticipate discharge by Sunday. , patient continues to progress well, no complications seen, appetite is good no abdominal pain, tolerating a full to soft regular diet, patient has normal bowel movements yesterday. No nausea no vomiting, Objective - Vital Signs Vital signs: Vital Signs Temp 97.4 F L 09/07/16 14:22 Pulse 77 09/07/16 14:22 Resp 16 09/07/16 14:22 BP 150/87 09/07/16 14:22 Pulse Ox 99 09/07/16 14:22 Intake & Output 09/06/16 09/07/16 09/07/16 18:59 06:59 18:59 Intake Total 300 590 360 Output Total 200 Balance 100 590 360 Intake: Oral 300 590 360 Output: Urine 200 Other: Voiding Method Toilet # Voids 1 2 2 - Constitutional General appearance: Present: average body habitus, cooperative, no acute distress - EENT Eyes: Present: anicteric sclerae, EOMI, PERRLA, dentition normal, normal appearance ENT: Present: hearing grossly normal, NA/AT, normal oropharynx - Neck Neck: Present: normal ROM. Absent: lymphadenopathy, other, rigidity, stridor, thyromegaly - Respiratory Respiratory: bilateral: CTA, negative: diminished, dullness, rales, rhonchi - Cardiovascular Rhythm: regular Heart sounds: normal: S1, S2 Abnormal Heart Sounds: Absent: systolic murmur, diastolic murmur, rub, S3 Gallop , S4 Gallop, click, other - Gastrointestinal General gastrointestinal: Present: normal bowel sounds, soft - Integumentary Integumentary: Present: normal, normal turgor - Neurologic Neurologic: Present: CNII-XII intact - Musculoskeletal Musculoskeletal: Present: gait normal, strength equal bilaterally - Psychiatric Psychiatric: Present: A&O x's 3, appropriate affect - Labs CBC & Chem 7: 09/07/16 06:56 09/07/16 06:56 Labs: Abnormal Lab Results - Last 24 Hours (Table) 09/07/16 09/07/16 09/07/16 Range/Units 06:56 06:56 11:44 RBC 3.91 L (4.30-5.90) m/uL Hgb 11.9 L (13.0-17.5) gm/dL Hct 35.7 L (39.0-53.0) % Chloride 109 H (98-107) mmol/L POC Glucose (mg/dL) 104 H (75-99) mg/dL AST 16 L (17-59) U/L Total Protein 5.5 L (6.3-8.2) g/dL Albumin 3.0 L (3.5-5.0) g/dL Microbiology - Last 24 Hours (Table) 09/06/16 14:20 Urine Culture - Preliminary Urine,Voided Assessment and Plan Plan: 1 recurrent diverticulitis requiring laparoscopic sigmoid resection on [address] High, patient's doing well doing incentive spirometry program, DVT prophylaxis is provided with subcutaneous heparin, patient's postoperative pain is under control, continue on entereg as scheduled for up to 7 days diet currently is advanced to full liquid and soft diet 2 prior history of clostridium difficile , inactive patient's to continue on probiotics in the form of dietary supplements like yogurt 3 mild blood loss anemia, stable patient's hemoglobin is at 12.4, monitor CBC no need for iron supplementation 4 diabetes is type II: Patient has been on metformin continue Accu-Chek with sliding-scale coverage as well. Sugars are stable diet*advanced as per general surgery 5 hyperlipidemia: Continue Lipitor 10 mg daily. 6 hypertension: Remain on with Lopressor 25 mg a day and losartan 100 mg daily. May restart Hydrodiuril on 09/08 day 7 severe GERD: Patient will be on Protonix 8 DVT prophylaxis: Patient be on heparin 5000 units obtain his twice a day. Pulmonary prophylaxis with incentive spirometry, and GI prophylaxis on Protonix 9 urinary frequency. Bladder scan postvoid, urinalysis, urine culture. CODE STATUS: Full code. Discharge plan: Return home is likely this September 08
[2016-09-07 17:11] LABS: Glucose,Whole Blood 96 mg/dL (75-99)
[2016-09-07 21:11] LABS: Glucose,Whole Blood 103 mg/dL (75-99)
[2016-09-07] MEDS: ATORVASTATIN 10 MG TAB PO SCH (21:11)
[2016-09-08 02:29] LABS: Glucose,Whole Blood 103 mg/dL (75-99)
[2016-09-08] MEDS: HYDROCORTISONE 2.5% RECTAL CREAM 30 GM TUBE RECTAL SCH ×2 (04:25→07:59)
[2016-09-08] MEDS: HYDROcodone/APAP 7.5-325MG 1 EACH TAB PO PRN ×2 (04:55→12:20)
[2016-09-08 07:37] LABS: Glucose,Whole Blood 100 mg/dL (75-99)
[2016-09-08 07:49] VITALS: BP 136/84; PULSE 81; RESP 16; TEMP 98.1
[2016-09-08] MEDS: metFORMIN 500 MG TAB PO SCH (07:53)
[2016-09-08] MEDS: CHOLECALCIFEROL 1,000 UNIT TAB PO SCH (07:54)
[2016-09-08] MEDS: METOPROLOL TARTRATE 25 MG TAB PO SCH (07:54)
[2016-09-08] MEDS: ASPIRIN 81 MG CHEW PO SCH (07:54)
[2016-09-08] MEDS: LOSARTAN 50 MG TAB PO SCH (07:54)
[2016-09-08] MEDS: ALVIMOPAN 12 MG CAPSULE PO SCH (07:54)
[2016-09-08] MEDS: HEPARIN SODIUM,PORCINE 5,000 UNIT/ML 1 ML VIAL SQ SCH (07:55)
[2016-09-08] MEDS: PANTOPRAZOLE 40 MG TABLET PO SCH (07:55)
[2016-09-08 08:19] LABS: Basophils % (A) 0 %; CH 30.5; CHCM 33.9; Eosinophils # (A) 0.2 k/uL (0-0.7); Eosinophils % (A) 3 %; HCT 38.8 % (39.0-53.0); HDW 2.73; HGB 12.7 gm/dL (13.0-17.5); Luc # (Auto) 0.17; Luc % (Auto) 3; Lymphocytes % (A) 18 %; MCH 29.8 pg (25.0-35.0); MCHC 32.9 g/dL (31.0-37.0); MCV 90.5 fL (80.0-100.0); Mean Platelet Volume 7.2; Monocytes # (A) 0.3 k/uL (0-1.0); Monocytes % (A) 5 %; Neutrophils # (A) 3.6 k/uL (1.3-7.7); Neutrophils % (A) 70 %; RBC 4.28 m/uL (4.30-5.90); RDW 13.3 % (11.5-15.5); WBC 5.2 k/uL (3.8-10.6); WBC (Perox) 5.71
[2016-09-08 11:27] LABS: Glucose,Whole Blood 95 mg/dL (75-99)
--- NOTE | 2016-09-08 12:21 | P.DS ---
Providers Date of admission: 09/04/16 07:12 Attending physician: Daquan High Consults: 09/04/16 12:20 Consult Physician Routine Consulting Provider: Mark Hardwick Reason/Comments: med. mx. Do you want consulting provider notified?: Yes Primary care physician: Stated None Plan - Discharge Summary New Discharge Prescriptions: HYDROcodone/APAP 5-325MG [Rowe 5-325] 1 tab PO Q4HR PRN #25 tab PRN Reason: Pain Discharge Medication List Atorvastatin [Lipitor] 10 mg PO HS 02/08/16 [History] Hydrochlorothiazide [Hydrodiuril] 25 mg PO QAM 02/08/16 [History] Losartan Potassium 100 mg PO QAM 02/08/16 [History] Metoprolol Tartrate [Lopressor] 25 mg PO QAM 02/08/16 [History] Cholecalciferol [Vitamin D3] 2,000 unit PO DAILY 03/08/16 [History] metFORMIN HCL [Metformin HCl ER] 500 mg PO HS 07/14/16 [History] Aspirin [Adult Low Dose Aspirin EC] 81 mg PO DAILY 09/01/16 [History] Dicyclomine [Bentyl] 10 mg PO TID PRN 09/01/16 [History] Esomeprazole Magnesium [NexIUM] 40 mg PO DAILY 09/01/16 [History] HYDROcodone/APAP 5-325MG [Rowe 5-325] 1 tab PO Q4HR PRN #25 tab 09/07/16 [Rx] Follow up Appointment(s)/Referral(s): Daquan High MD [STAFF PHYSICIAN] - 09/14/16 3:30 pm Activity/Diet/Wound Care/Special Instructions: Soft diet, may shower, may resume home meds., no heavy lifting for 1 month.
--- NOTE | 2016-09-08 15:14 | P.PN ---
Subjective This is a pleasant 61-year-old male one of Dr. Panchal patient with past medical history of diabetes, hypertension, hyperlipidemia and asthma who had been seen Dr. High for the last few years and was diagnosed previously of recurrent diverticulitis in the past 10 years, his last colonoscopy was 3 years ago patient was recommended that time not to go for any surgical intervention. Patient had several episode of diverticulitis since initial flare up last March 2016 at [place] emergency room, has recurrent episodes since then till his last admission in June 2016 where he developed Clostridium difficile. He comes in now for sigmoid resection performed by Dr. High on 05/2016. No recurrence ofclostridium dificile or diverticulitis or colitis since then. He was seen postoperatively without any complaints of nausea vomiting no diarrhea patient does not have any chest pain or dyspnea, postop[erative pain is under control, he currently is on entereg for management of postoperative ileus and he is doing well. Blood sugars are stable between 125-150 5/: Patient states he was up urinating almost constantly during the night which is not unusual for him at home. We have ordered bladder scan, a urinalysis and urine culture. He is passing gas. His diet is full liquid to be advanced to soft today. He is ambulating in the hallway without difficulty. Anticipate discharge by Sunday. , patient continues to progress well, no complications seen, appetite is good no abdominal pain, tolerating a full to soft regular diet, patient has normal bowel movements yesterday. No nausea no vomiting, 09/08: She denies any complaints. He did have a bowel movement last night and had some pain during the night but since he has been up and moving has been doing fine. He is scheduled for discharge home today. Objective - Vital Signs Vital signs: Vital Signs Temp 98.1 F 09/08/16 07:48 Pulse 81 09/08/16 07:48 Resp 16 09/08/16 07:48 BP 136/84 09/08/16 07:48 Pulse Ox 94 L 09/08/16 07:48 Intake & Output 09/07/16 09/08/16 09/08/16 18:59 06:59 18:59 Intake Total 840 500 480 Balance 840 500 480 Intake: Oral 840 500 480 Other: Voiding Method Toilet Toilet # Voids 2 2 - Exam General appearance: average body habitus, cooperative, no acute distress - EENT Eyes: anicteric sclerae, EOMI, PERRLA, dentition normal, normal appearance ENT: hearing grossly normal, NA/AT, normal oropharynx - Neck Neck: no lymphadenopathy, normal ROM, no other, no rigidity, no stridor, no thyromegaly - Respiratory Respiratory: bilateral: CTA, negative: dullness, rales, rhonchi, wheezing - Cardiovascular Rhythm: regular Heart sounds: normal: S1, S2 Abnormal Heart Sounds: no systolic murmur, no diastolic murmur, no rub, no S3 Gallop, no S4 Gallop, no click, no other - Gastrointestinal Incision is clean approximately 3 cm incision site in from left infra-umbilicus with laparoscopic incisions are all well coaptated General gastrointestinal: decreased bowel sounds, soft - Integumentary Incision is clean without any dehiscence, along the incision which is approximately 3 cm well coaptated and glued Integumentary: normal, normal turgor - Neurologic Neurologic: CNII-XII intact - Musculoskeletal Musculoskeletal: gait normal, strength equal bilaterally - Psychiatric Psychiatric: A&O x's 3, appropriate affect, intact judgment & insight - Labs CBC & Chem 7: 09/08/16 07:58 09/07/16 06:56 Labs: Abnormal Lab Results - Last 24 Hours (Table) 09/07/16 09/08/16 09/08/16 Range/Units 21:10 02:18 07:32 RBC (4.30-5.90) m/uL Hgb (13.0-17.5) gm/dL Hct (39.0-53.0) % POC Glucose (mg/dL) 103 H 103 H 100 H (75-99) mg/dL 09/08/16 Range/Units 07:58 RBC 4.28 L (4.30-5.90) m/uL Hgb 12.7 L (13.0-17.5) gm/dL Hct 38.8 L (39.0-53.0) % POC Glucose (mg/dL) (75-99) mg/dL Microbiology - Last 24 Hours (Table) 09/06/16 14:20 Urine Culture - Final Urine,Voided Assessment and Plan Plan: 1 recurrent diverticulitis requiring laparoscopic sigmoid resection on [address] High, patient's doing well doing incentive spirometry program, DVT prophylaxis is provided with subcutaneous heparin, patient's postoperative pain is under control, continue on entereg as scheduled for up to 7 days 2 prior history of clostridium difficile a, inactive patient's to continue on probiotics in the form of dietary supplements like yogurt 3 mild blood loss anemia, stable patient's hemoglobin is at 12.4, monitor CBC no need for iron supplementation 4 diabetes is type II: Patient has been on metformin continue Accu-Chek with sliding-scale coverage as well. Sugars are stable diet*advanced as per general surgery 5 hyperlipidemia: Continue Lipitor 10 mg daily. 6 hypertension: Remain on Hydrea diarrhea along with Lopressor 25 mg a day and losartan 100 mg daily. 7 severe GERD: Patient will be on Protonix 8 DVT prophylaxis: Patient be on heparin 5000 units obtain his twice a day. Pulmonary prophylaxis with incentive spirometry, and GI prophylaxis on Protonix 9 urinary frequency. Bladder scan postvoid, urinalysis, urine culture--no growth. CODE STATUS: Full code. Discharge plan: Return home Impression and plan of care have been directed as dictated by the signing physician. Lawanda Dawn nurse practitioner acting as scribe for signing physician. Cc: Dr. Ryder Panchal Time with Patient: Greater than 30
== END 2016-09-08 14:59 | disposition home or self-care (01) | DRG 331 ==
LOC: 2ORWHC 07:12 → 3SUR 11:59
PROVIDERS: ADMIT Surgery; ATTEND Surgery
PROC: 0DBN4ZZ Excision of Sigmoid Colon, Percutaneous Endoscopic Approach (ICD-10-PCS; principal; 2016-09-04 08:45)
DX: K57.32 Diverticulitis of large intestine without perforation or abscess without bleeding (principal); I10 Essential (primary) hypertension; E11.9 Type 2 diabetes mellitus without complications; E78.5 Hyperlipidemia, unspecified; J45.909 Unspecified asthma, uncomplicated; K21.9 Gastro-esophageal reflux disease without esophagitis; Z79.82 Long term (current) use of aspirin; Z79.899 Other long term (current) drug therapy; Z80.8 Family history of malignant neoplasm of other organs or systems
CPT/HCPCS: 80048; 80053; 81003; 85025; 86850; 86900; 86901; 87086; 88307

== ENCOUNTER 2016-11-17 10:18 | Inpatient (IN) | payer MEDICAID, OTHER ==
[2016-11-17 11:19] LABS: Basophils % (A) 1 %; CH 29.4; CHCM 34.8; Eosinophils # (A) 0.1 k/uL (0-0.7); Eosinophils % (A) 1 %; HCT 41.8 % (39.0-53.0); HDW 2.76; Luc # (Auto) 0.23; Luc % (Auto) 4; Lymphocytes # (A) 1.3 k/uL (1.0-4.8); Lymphocytes % (A) 23 %; MCH 30.4 pg (25.0-35.0); MCHC 35.8 g/dL (31.0-37.0); MCV 84.9 fL (80.0-100.0); Mean Platelet Volume 7.7; Monocytes # (A) 0.3 k/uL (0-1.0); Monocytes % (A) 6 %; Neutrophils # (A) 3.8 k/uL (1.3-7.7); Neutrophils % (A) 66 %; RBC 4.93 m/uL (4.30-5.90); RDW 13.6 % (11.5-15.5); WBC 5.7 k/uL (3.8-10.6)
[2016-11-17 11:25] LABS: ALT 28 U/L (21-72); AST 21 U/L (17-59); Alkaline Phosphatase 53 U/L (38-126); Amylase 31 U/L (30-110); Anion Gap 12 mmol/L; Blood Urea Nitrogen 19 mg/dL (9-20); Carbon Dioxide 22 mmol/L (22-30); Chloride 108 mmol/L (98-107); Glucose 96 mg/dL (74-99); Non-African American GFR(MDRD) >60 (>60 ml/min/1.73 sqM); Sodium 142 mmol/L (137-145); Total Bilirubin 0.6 mg/dL (0.2-1.3); Total Protein 6.5 g/dL (6.3-8.2)
[2016-11-17 11:31] LABS: Potassium 4.2 mmol/L (3.5-5.1)
[2016-11-17] MEDS ORDERED: SODIUM CHLORIDE 0.9% 1,000 ML IV ONE (11:31)
--- NOTE | 2016-11-17 11:34 | ED ---
Abdominal Pain HPI <FrankiKishore - Last Filed: 11/17/16 15:33> - General Source: patient, RN notes reviewed Mode of arrival: ambulatory Limitations: no limitations <Candy Manzo - Last Filed: 11/17/16 16:14> - General Chief Complaint: Abdominal Pain Stated Complaint: abd pain Time Seen by Provider: 11/17/16 10:48 - History of Present Illness Initial Comments: Patient is a 61-year-old male presents to the emergency room for evaluation of left lower quadrant pain. Patient states the pain began around 2:30 this morning. Patient states he noticed while sitting up or laying flat he had a burning like sensation in his left lower quadrant. Patient states he's never had pain at this before. Patient states about 2 months ago he had diverticulitis and ended up having a bowel resection by Dr. High. Patient denies any complications after surgery. Patient denies constipation or diarrhea. Patient denies nausea or vomiting. Patient denies fevers or chills. Patient denies chest pain shortness of breath. Patient denies headache or dizziness. Patient states the pain comes in waves. Patient states the pain is worse when he sitting up straight or laying down flat. Patient denies any current pain. Patient denies any specific injury or trauma to his abdomen recently. Patient denies any recent heavy lifting. Patient denies any other complaints at this time. (Candy Manzo) - Related Data Home Medications Medication Instructions Recorded Confirmed Atorvastatin [Lipitor] 10 mg PO HS 02/08/16 11/17/16 Hydrochlorothiazide [Hydrodiuril] 25 mg PO QAM 02/08/16 11/17/16 Losartan Potassium 100 mg PO QAM 02/08/16 11/17/16 Metoprolol Tartrate [Lopressor] 25 mg PO QAM 02/08/16 11/17/16 Cholecalciferol [Vitamin D3] 2,000 unit PO DAILY 03/08/16 11/17/16 metFORMIN HCL [Metformin HCl ER] 500 mg PO HS 07/14/16 11/17/16 Aspirin [Adult Low Dose Aspirin EC] 81 mg PO DAILY 09/01/16 11/17/16 Dicyclomine [Bentyl] 10 mg PO TID PRN 09/01/16 11/17/16 Esomeprazole Magnesium [NexIUM] 40 mg PO HS 09/01/16 11/17/16 Allergies Allergy/AdvReac Type Severity Reaction Status Date / Time Penicillins Allergy Rash/Hives Verified 11/17/16 10:34 Review of Systems ROS Other: All systems not noted in ROS Statement are negative. <Kishore Doan - Last Filed: 11/17/16 15:33> ROS Other: All systems not noted in ROS Statement are negative. <Candy Manzo - Last Filed: 11/17/16 16:14> ROS Statement: Those systems with pertinent positive or pertinent negative responses have been documented in the HPI. Past Medical History Past Medical History: Asthma, Diabetes Mellitus, GERD/Reflux, Hyperlipidemia, Hypertension, Thyroid Disorder Additional Past Medical History / Comment(s): NO INHALERS FOR ASTHMA, ALLERGY INDUCED, diverticulitis, HX OF thyroid nodule History of Any Multi-Drug Resistant Organisms: C-DIFF Date of last positivie culture/infection: 07/14/16 MDRO Source:: STOOL Past Surgical History: Adenoidectomy, Hernia Repair, Orthopedic Surgery, Tonsillectomy Additional Past Surgical History / Comment(s): R thyroid lobectomy, vasectomy, cyst removed from left leg, ganglion cyst rt hand, L inguinal hernia repair x2, EGD/colonoscopy 3. bowel resection Past Anesthesia/Blood Transfusion Reactions: No Reported Reaction Past Psychological History: No Psychological Hx Reported Smoking Status: Never smoker Past Alcohol Use History: Occasional Past Drug Use History: None Reported - Past Family History Mother Family Medical History: Cancer Additional Family Medical History / Comment(s): melanoma Father Family Medical History: Cancer <Candy Manzo - Last Filed: 11/17/16 16:14> General Exam <Kishore Doan - Last Filed: 11/17/16 15:33> Limitations: no limitations General appearance: alert, in no apparent distress Head exam: Present: atraumatic, normocephalic, normal inspection Eye exam: Present: normal appearance ENT exam: Present: normal exam Neck exam: Present: normal inspection Respiratory exam: Absent: respiratory distress Cardiovascular Exam: Present: regular rate, normal rhythm, normal heart sounds GI/Abdominal exam: Present: soft, normal bowel sounds. Absent: distended, tenderness, guarding, rebound, rigid Extremities exam: Present: normal inspection Back exam: Present: normal inspection Neurological exam: Present: alert, oriented X3, CN II-XII intact, normal gait Psychiatric exam: Present: normal affect, normal mood Skin exam: Present: warm, dry, intact, normal color. Absent: rash <Candy Manzo - Last Filed: 11/17/16 16:14> - General Exam Comments Initial Comments: Sitting in exam room, no acute distress. (Candy Manzo) Course <Kishore Doan - Last Filed: 11/17/16 15:33> <Candy Manzo - Last Filed: 11/17/16 16:14> Vital Signs 11/17/16 11/17/16 11/17/16 10:19 14:09 16:04 Temperature 97.4 F L 98.0 F Pulse Rate 86 69 67 Respiratory 17 16 16 Rate Blood Pressure 149/93 117/69 124/71 O2 Sat by Pulse 96 99 97 Oximetry - Reevaluation(s) Reevaluation #1: 11/17/16 15:33 I personally do a [id number] evaluation the patient did discuss the findings with him and his . Patient does demonstrate some left lower quadrant tenderness palpation no definite guarding or rebound however. Lab work is within normal limits however the CAT scan does show evidence of diverticular disease with inflammation. I did discuss the case with Dr. High the patient will be admitted and started on IV antibiotics. He is ALLERGIC to penicillin he will be placed on Levaquin and Flagyl. (Kishore Doan) Medical Decision Making - Lab Data Result diagrams: 11/17/16 10:44 11/17/16 10:44 <Kishore Doan - Last Filed: 11/17/16 15:33> - Lab Data Result diagrams: 11/17/16 10:44 11/17/16 10:44 - Radiology Data Radiology results: report reviewed, image reviewed <Candy Manzo - Last Filed: 11/17/16 16:14> - Medical Decision Making patient is a 61-year-old male presents emergency room for evaluation of left lower quadrant pain. Patient did have a bowel resection done by Dr. High about 2 months ago for diverticulitis. Labs show no concerning findings. WBC within normal limits. X-ray showed evidence for a possible enteritis. CT showed evidence for diverticulitis around surgical site. Discussed with Dr. Doan. Dr. Doan discussed case with Dr. High who agreed to admit patient. Patient will be started on Cipro and Flagyl. (Candy Manzo) - Lab Data Lab Results 11/17/16 11/17/16 11/17/16 Range/Units 10:44 10:44 11:20 WBC 5.7 (3.8-10.6) k/uL RBC 4.93 (4.30-5.90) m/uL Hgb 15.0 (13.0-17.5) gm/dL Hct 41.8 (39.0-53.0) % MCV 84.9 (80.0-100.0) fL MCH 30.4 (25.0-35.0) pg MCHC 35.8 (31.0-37.0) g/dL RDW 13.6 (11.5-15.5) % Plt Count 205 (150-450) k/uL Neutrophils % 66 % Lymphocytes % 23 % Monocytes % 6 % Eosinophils % 1 % Basophils % 1 % Neutrophils # 3.8 (1.3-7.7) k/uL Lymphocytes # 1.3 (1.0-4.8) k/uL Monocytes # 0.3 (0-1.0) k/uL Eosinophils # 0.1 (0-0.7) k/uL Basophils # 0.0 (0-0.2) k/uL Sodium 142 (137-145) mmol/L Potassium 4.2 (3.5-5.1) mmol/L Chloride 108 H (98-107) mmol/L Carbon Dioxide 22 (22-30) mmol/L Anion Gap 12 mmol/L BUN 19 (9-20) mg/dL Creatinine 1.22 (0.66-1.25) mg/dL Est GFR (MDRD) Af Amer >60 (>60 ml/min/1.73 sqM) Est GFR (MDRD) Non-Af >60 (>60 ml/min/1.73 sqM) Glucose 96 (74-99) mg/dL Plasma Lactic Acid Darrick 1.1 (0.7-2.0) mmol/L Calcium 9.0 (8.4-10.2) mg/dL Total Bilirubin 0.6 (0.2-1.3) mg/dL AST 21 (17-59) U/L ALT 28 (21-72) U/L Alkaline Phosphatase 53 (38-126) U/L Total Protein 6.5 (6.3-8.2) g/dL Albumin 4.1 (3.5-5.0) g/dL Amylase 31 (30-110) U/L Lipase 93 (23-300) U/L Urine Color Urine Appearance (Clear) Urine pH (5.0-8.0) Ur Specific [place] (1.001-1.035) Urine Protein (Negative) Urine Glucose (UA) (Negative) Urine Ketones (Negative) Urine Blood (Negative) Urine Nitrite (Negative) Urine Bilirubin (Negative) Urine Urobilinogen (<2.0) mg/dL Ur Leukocyte Esterase (Negative) Urine RBC (0-5) /hpf Urine WBC (0-5) /hpf Urine Mucus (None) /hpf 11/17/16 Range/Units 11:30 WBC (3.8-10.6) k/uL RBC (4.30-5.90) m/uL Hgb (13.0-17.5) gm/dL Hct (39.0-53.0) % MCV (80.0-100.0) fL MCH (25.0-35.0) pg MCHC (31.0-37.0) g/dL RDW (11.5-15.5) % Plt Count (150-450) k/uL Neutrophils % % Lymphocytes % % Monocytes % % Eosinophils % % Basophils % % Neutrophils # (1.3-7.7) k/uL Lymphocytes # (1.0-4.8) k/uL Monocytes # (0-1.0) k/uL Eosinophils # (0-0.7) k/uL Basophils # (0-0.2) k/uL Sodium (137-145) mmol/L Potassium (3.5-5.1) mmol/L Chloride (98-107) mmol/L Carbon Dioxide (22-30) mmol/L Anion Gap mmol/L BUN (9-20) mg/dL Creatinine (0.66-1.25) mg/dL Est GFR (MDRD) Af Amer (>60 ml/min/1.73 sqM) Est GFR (MDRD) Non-Af (>60 ml/min/1.73 sqM) Glucose (74-99) mg/dL Plasma Lactic Acid Darrick (0.7-2.0) mmol/L Calcium (8.4-10.2) mg/dL Total Bilirubin (0.2-1.3) mg/dL AST (17-59) U/L ALT (21-72) U/L Alkaline Phosphatase (38-126) U/L Total Protein (6.3-8.2) g/dL Albumin (3.5-5.0) g/dL Amylase (30-110) U/L Lipase (23-300) U/L Urine Color Yellow Urine Appearance Clear (Clear) Urine pH 6.5 (5.0-8.0) Ur Specific [place] 1.018 (1.001-1.035) Urine Protein Negative (Negative) Urine Glucose (UA) Negative (Negative) Urine Ketones Negative (Negative) Urine Blood Negative (Negative) Urine Nitrite Negative (Negative) Urine Bilirubin Negative (Negative) Urine Urobilinogen <2.0 (<2.0) mg/dL Ur Leukocyte Esterase Trace H (Negative) Urine RBC <1 (0-5) /hpf Urine WBC 3 (0-5) /hpf Urine Mucus Rare H (None) /hpf Disposition <Kishore Doan - Last Filed: 11/17/16 15:33> Decision Date: 11/17/16 <Candy Manzo - Last Filed: 11/17/16 16:14> Clinical Impression: Diverticulitis Disposition: ADMITTED IP TO THIS [facility] Condition: Stable
--- NOTE | 2016-11-17 12:09 | XR ---
Abdomen HISTORY: Left lower quadrant pain Frontal view of the abdomen on 2 images correlated to prior exam 07/14/2016 There are some air-fluid levels without bowel distention. Lung bases are clear. No pneumoperitoneum. Surgical clips present in the lower abdomen which is an interval finding. Bone mineralization is norm al. IMPRESSION: There may be underlying ileus or enteritis. Correlate clinically, follow-up should small bowel obstruction be suspected clinically
[2016-11-17 12:11] LABS: Appearance,Urine Clear (Clear); Bilirubin,Urine Negative (Negative); Glucose,Urine (UA) Negative (Negative); Ketones,Urine Negative (Negative); Leukocyte Esterase,Urine Trace (Negative); Mucus,Urine Rare /hpf; Nitrite,Urine Negative (Negative); PH, Urine 6.5 (5.0-8.0); Particle Count 1535; Protein,Urine Negative (Negative); RBC,Urine <1 /hpf (0-5); Specific Gravity,Urine 1.018 (1.001-1.035); UA Billing (MACRO vs. MICRO) MICRO; Urobilinogen,Urine <2.0 mg/dL (<2.0); WBC,Urine 3 /hpf (0-5)
[2016-11-17] MEDS ORDERED: RX INFO: IV CONTRAST WAS GIVEN 1 EACH MISC MISCELLANE PRN (12:54)
--- NOTE | 2016-11-17 14:07 | CT ---
EXAMINATION TYPE: CT abdomen pelvis w con DATE OF EXAM: 11/17/2016 COMPARISON: 07/14/2016 HISTORY: LLQ pain CT DLP: 1821 mGycm Automated exposure control for dose reduction was used. CONTRAST: CT scan of the abdomen pelvis is performed with IV Contrast, patient injected with 100 mL of Omnipaqu e 300. FINDINGS- LUNG BASES- No significant abnormality is appreciated. LIVER/GB- No gross abnormality is appreciated. PANCREAS- No gross abnormality is seen. SPLEEN- No gross abnormality is seen. ADRENALS- No gross abnormality is seen. KIDNEYS/BLADDER- no hydronephrosis nephrolithiasis or renal mass. Prostate enlarged. BOWEL-there is diffuse colonic diverticulosis with an area of inflammatory change in the sigmoid berenice on suggestive of acute diverticulitis. No abscess. No diagnostic evidence of free air. Overall bowel gas pattern nonspecific without evidence of obstruction. Previous surgery noted. LYMPH NODES- No greater than 1cm abdominal or pelvic lymph nodes areappreciated. OSSEOUS STRUCTURES-atrophic change of the spine noted. IMPRESSION- 1. Inflammation within the left and mid pelvis near the area of previous surgical site of the sigmoid colon. Diverticulitis favored over colitis. Correlate clinically. 2. Prostate enlargement.
[2016-11-17] MEDS ORDERED: MORPHINE SULFATE 4 MG/ML SYRINGE IV PRN (15:49)
[2016-11-17] MEDS ORDERED: ONDANSETRON 4 MG/2 ML VIAL IVP PRN (15:49)
[2016-11-17] MEDS ORDERED: LEVOFLOXACIN 500MG-D5W PMX 500 MG in DEXTROSE/WATER 1 100ML.BAG IVPB STA (15:49)
[2016-11-17] MEDS ORDERED: NALOXONE 0.4 MG/ML 1 ML VIAL IV PRN (15:49)
[2016-11-17] MEDS ORDERED: metroNIDAZOLE-NS PMX 500 MG in SALINE 1 100ML.BAG IVPB STA (15:49)
[2016-11-17] MEDS: SODIUM CHLORIDE 0.9% 1,000 ML IV SCH ×2 (16:01→23:41)
[2016-11-17 16:48] LABS: Glucose,Whole Blood 98 mg/dL (75-99)
[2016-11-17 17:06] VITALS: BMI 29.4
[2016-11-17] MEDS: INSULIN LISPRO (humaLOG) 300 UNIT/3 ML VIAL SQ SCH ×2 (17:07→20:49)
[2016-11-17 20:15] VITALS: TEMP 97.9
[2016-11-17 20:27] LABS: Glucose,Whole Blood 98 mg/dL (75-99)
[2016-11-17] MEDS ORDERED: ATORVASTATIN 10 MG TAB PO SCH (21:00)
[2016-11-17 21:49] LABS: Hemoglobin A1C 5.6 % (4.2-6.1)
[2016-11-17] MEDS: metroNIDAZOLE-NS PMX 500 MG in SALINE 1 100ML.BAG IVPB SCH (23:42)
[2016-11-18 07:02] LABS: Glucose,Whole Blood 107 mg/dL (75-99)
[2016-11-18 07:19] LABS: Basophils % (A) 1 %; CH 29.3; CHCM 32.8; Eosinophils # (A) 0.1 k/uL (0-0.7); Eosinophils % (A) 2 %; HCT 47.9 % (39.0-53.0); HDW 2.64; HGB 15.7 gm/dL (13.0-17.5); Luc % (Auto) 4; Lymphocytes # (A) 1.1 k/uL (1.0-4.8); Lymphocytes % (A) 23 %; MCH 29.4 pg (25.0-35.0); MCHC 32.8 g/dL (31.0-37.0); MCV 89.7 fL (80.0-100.0); Mean Platelet Volume 8.1; Monocytes # (A) 0.3 k/uL (0-1.0); Monocytes % (A) 6 %; Neutrophils # (A) 3.2 k/uL (1.3-7.7); Neutrophils % (A) 64 %; RBC 5.34 m/uL (4.30-5.90); RDW 13.5 % (11.5-15.5); WBC 4.9 k/uL (3.8-10.6); WBC (Perox) 4.57
[2016-11-18] MEDS: INSULIN LISPRO (humaLOG) 300 UNIT/3 ML VIAL SQ SCH (07:31)
[2016-11-18] MEDS: metroNIDAZOLE-NS PMX 500 MG in SALINE 1 100ML.BAG IVPB SCH (07:36)
[2016-11-18 07:45] VITALS: BP 125/80; PULSE 64; RESP 12
[2016-11-18 07:52] LABS: ALT 26 U/L (21-72); AST 15 U/L (17-59); Alkaline Phosphatase 61 U/L (38-126); Anion Gap 11 mmol/L; Blood Urea Nitrogen 15 mg/dL (9-20); Carbon Dioxide 26 mmol/L (22-30); Chloride 105 mmol/L (98-107); Glucose 107 mg/dL (74-99); Non-African American GFR(MDRD) >60 (>60 ml/min/1.73 sqM); Potassium 3.7 mmol/L (3.5-5.1); Sodium 142 mmol/L (137-145); Total Bilirubin 0.4 mg/dL (0.2-1.3); Total Protein 6.4 g/dL (6.3-8.2)
[2016-11-18] MEDS ORDERED: HYDROCHLOROTHIAZIDE 25 MG TAB PO SCH (09:00)
[2016-11-18] MEDS ORDERED: LOSARTAN 50 MG TAB PO SCH (09:00)
[2016-11-18] MEDS ORDERED: METOPROLOL TARTRATE 25 MG TAB PO SCH (09:00)
[2016-11-18] MEDS ORDERED: ASPIRIN 81 MG CHEW PO SCH (09:00)
--- NOTE | 2016-11-18 10:29 | P.GSHP ---
History of Present Illness H&P Date: 12/01/16 Chief Complaint: Left lower quadrant abdominal pain. The patient is a 61-year-old white male who about 2 months ago underwent a low anterior laparoscopic assisted sigmoid resection by myself for recurrent episodes of diverticulitis. Had area of inflammation and phlegmon in the sigmoid that was removed. Did fine postoperatively. However yesterday at about 2:30 in the morning when he bent over felt some discomfort in the left lower quadrant that progressively advance to a burning type sensation. He felt that mostly in the ventral or laying down flat position. Seems to the this is different from the symptoms is had in the past was diverticulitis. No fever or chills. No vomiting. Had normal bowel movements all along the daily. Denies any straining. No history of any injury. However he presented to the emergency room. Computed tomography scan showed evidence of possible inflammation in the sigmoid area with possible diverticulitis. No urinary symptoms. Past history. Well-documented. Positive for hypertension diabetes mellitus. Irritable bowel syndrome on Bentyl. Left inguinal hernia repair. Medications as listed. Systems review as above. No cardiac or respiratory problem. No urinary symptoms. No hematuria. No blood in his stool. Has had some hemorrhoidal symptoms off and on more recently about 2 weeks ago that improved with the prescription suppositories. On examination the patient is awake alert comfortable in no acute distress. Was ambulating. No fever. Vitals stable. Color is good hydration is good. Abdomen Abdomen is fairly soft with minimal tenderness in the left lower quadrant well away from any of the surgical scars. No guarding or rebound no mass or organomegaly or hernias noted. His wbc's normal lab work and urinalysis unremarkable. Impression possible mild the sigmoid diverticulitis dose doubtful since his pain appears to be more positional in nature and the fact that he has had a sigmoid resection. Recommendation patient will was admitted the upper observation placed on IV fluids and antibiotics. Further management will depend on his clinical course. Past Medical History Past Medical History: Asthma, Diabetes Mellitus, GERD/Reflux, Hyperlipidemia, Hypertension, Thyroid Disorder Additional Past Medical History / Comment(s): NO INHALERS FOR ASTHMA, ALLERGY INDUCED, diverticulitis, HX OF thyroid nodule History of Any Multi-Drug Resistant Organisms: C-DIFF Date of last positivie culture/infection: 07/14/16 MDRO Source:: STOOL Past Surgical History: Adenoidectomy, Hernia Repair, Orthopedic Surgery, Tonsillectomy Additional Past Surgical History / Comment(s): R thyroid lobectomy, vasectomy, cyst removed from left leg, ganglion cyst rt hand, L inguinal hernia repair x2, EGD/colonoscopy 3. bowel resection Past Anesthesia/Blood Transfusion Reactions: No Reported Reaction Past Psychological History: No Psychological Hx Reported Smoking Status: Never smoker Past Alcohol Use History: Occasional Past Drug Use History: None Reported - Past Family History Mother Family Medical History: Cancer Additional Family Medical History / Comment(s): melanoma Father Family Medical History: Cancer Medications and Allergies Home Medications Medication Instructions Recorded Confirmed Type Atorvastatin [Lipitor] 10 mg PO HS 02/08/16 11/17/16 History Hydrochlorothiazide [Hydrodiuril] 25 mg PO QAM 02/08/16 11/17/16 History Losartan Potassium 100 mg PO QAM 02/08/16 11/17/16 History Metoprolol Tartrate [Lopressor] 25 mg PO QAM 02/08/16 11/17/16 History Cholecalciferol [Vitamin D3] 2,000 unit PO DAILY 03/08/16 11/17/16 History metFORMIN HCL [Metformin HCl ER] 500 mg PO HS 07/14/16 11/17/16 History Aspirin [Adult Low Dose Aspirin EC] 81 mg PO DAILY 09/01/16 11/17/16 History Dicyclomine [Bentyl] 10 mg PO TID PRN 09/01/16 11/17/16 History Esomeprazole Magnesium [NexIUM] 40 mg PO HS 09/01/16 11/17/16 History Levofloxacin [Levaquin] 1 PO DAILY 11/18/16 History Allergies Allergy/AdvReac Type Severity Reaction Status Date / Time Penicillins Allergy Rash/Hives Verified 11/17/16 10:34 Surgical - Exam Vital Signs Temp Pulse Resp BP Pulse Ox 97.4 F L 86 17 149/93 96 11/17/16 10:19 11/17/16 10:19 11/17/16 10:19 11/17/16 10:19 11/17/16 10:19 Results - Labs 11/18/16 06:32 11/18/16 06:32 Abnormal Lab Results - Last 24 Hours (Table) 11/17/16 11/17/16 11/18/16 Range/Units 10:44 11:30 06:32 Chloride 108 H (98-107) mmol/L Glucose 107 H (74-99) mg/dL POC Glucose (mg/dL) (75-99) mg/dL AST 15 L (17-59) U/L Ur Leukocyte Esterase Trace H (Negative) Urine Mucus Rare H (None) /hpf 11/18/16 Range/Units 07:00 Chloride (98-107) mmol/L Glucose (74-99) mg/dL POC Glucose (mg/dL) 107 H (75-99) mg/dL AST (17-59) U/L Ur Leukocyte Esterase (Negative) Urine Mucus (None) /hpf Diabetes panel 11/17/16 11/17/16 11/18/16 Range/Units 10:44 10:44 06:32 Sodium 142 142 (137-145) mmol/L Potassium 4.2 3.7 (3.5-5.1) mmol/L Chloride 108 H 105 (98-107) mmol/L Carbon Dioxide 22 26 (22-30) mmol/L BUN 19 15 (9-20) mg/dL Creatinine 1.22 1.16 (0.66-1.25) mg/dL Glucose 96 107 H (74-99) mg/dL Hemoglobin A1c 5.6 (4.2-6.1) % Calcium 9.0 9.0 (8.4-10.2) mg/dL AST 21 15 L (17-59) U/L ALT 28 26 (21-72) U/L Alkaline Phosphatase 53 61 (38-126) U/L Total Protein 6.5 6.4 (6.3-8.2) g/dL Albumin 4.1 4.0 (3.5-5.0) g/dL Calcium panel 11/17/16 11/18/16 Range/Units 10:44 06:32 Calcium 9.0 9.0 (8.4-10.2) mg/dL Albumin 4.1 4.0 (3.5-5.0) g/dL Pituitary panel 11/17/16 11/18/16 Range/Units 10:44 06:32 Sodium 142 142 (137-145) mmol/L Potassium 4.2 3.7 (3.5-5.1) mmol/L Chloride 108 H 105 (98-107) mmol/L Carbon Dioxide 22 26 (22-30) mmol/L BUN 19 15 (9-20) mg/dL Creatinine 1.22 1.16 (0.66-1.25) mg/dL Glucose 96 107 H (74-99) mg/dL Calcium 9.0 9.0 (8.4-10.2) mg/dL Adrenal panel 11/17/16 11/18/16 Range/Units 10:44 06:32 Sodium 142 142 (137-145) mmol/L Potassium 4.2 3.7 (3.5-5.1) mmol/L Chloride 108 H 105 (98-107) mmol/L Carbon Dioxide 22 26 (22-30) mmol/L BUN 19 15 (9-20) mg/dL Creatinine 1.22 1.16 (0.66-1.25) mg/dL Glucose 96 107 H (74-99) mg/dL Calcium 9.0 9.0 (8.4-10.2) mg/dL Total Bilirubin 0.6 0.4 (0.2-1.3) mg/dL AST 21 15 L (17-59) U/L ALT 28 26 (21-72) U/L Alkaline Phosphatase 53 61 (38-126) U/L Total Protein 6.5 6.4 (6.3-8.2) g/dL Albumin 4.1 4.0 (3.5-5.0) g/dL
[2016-11-18] MEDS ORDERED: CHOLECALCIFEROL 1,000 UNIT TAB PO SCH (12:00)
[2016-11-18] MEDS ORDERED: LEVOFLOXACIN 500MG-D5W PMX 500 MG in DEXTROSE/WATER 1 100ML.BAG IVPB SCH (16:00)
--- NOTE | 2016-12-24 10:04 | P.DS ---
Providers Date of admission: 11/17/16 15:35 Attending physician: Daquan High Primary care physician: Ryder Panchal Patient Condition at Discharge: Stable Plan - Discharge Summary New Discharge Prescriptions: New Dicyclomine [Bentyl] 10 mg PO TID PRN #60 capsule PRN Reason: Pain No Action Atorvastatin [Lipitor] 10 mg PO HS Metoprolol Tartrate [Lopressor] 25 mg PO QAM Hydrochlorothiazide [Hydrodiuril] 25 mg PO QAM Losartan Potassium 100 mg PO QAM Cholecalciferol [Vitamin D3] 2,000 unit PO DAILY metFORMIN HCL [Metformin HCl ER] 500 mg PO HS Dicyclomine [Bentyl] 10 mg PO TID PRN PRN Reason: ABDOMINAL PAIN Esomeprazole Magnesium [NexIUM] 40 mg PO HS Aspirin [Adult Low Dose Aspirin EC] 81 mg PO DAILY Levofloxacin [Levaquin] 1 PO DAILY Discharge Medication List Atorvastatin [Lipitor] 10 mg PO HS 02/08/16 [History] Hydrochlorothiazide [Hydrodiuril] 25 mg PO QAM 02/08/16 [History] Losartan Potassium 100 mg PO QAM 02/08/16 [History] Metoprolol Tartrate [Lopressor] 25 mg PO QAM 02/08/16 [History] Cholecalciferol [Vitamin D3] 2,000 unit PO DAILY 03/08/16 [History] metFORMIN HCL [Metformin HCl ER] 500 mg PO HS 07/14/16 [History] Aspirin [Adult Low Dose Aspirin EC] 81 mg PO DAILY 09/01/16 [History] Dicyclomine [Bentyl] 10 mg PO TID PRN 09/01/16 [History] Esomeprazole Magnesium [NexIUM] 40 mg PO HS 09/01/16 [History] Dicyclomine [Bentyl] 10 mg PO TID PRN #60 capsule 11/18/16 [Rx] Levofloxacin [Levaquin] 1 PO DAILY 11/18/16 [History] Follow up Appointment(s)/Referral(s): Daquan High MD [STAFF PHYSICIAN] - 3 Days Ryder Panchal MD [Primary Care Provider] - 1 Week Activity/Diet/Wound Care/Special Instructions: Soft diet. Discharge Disposition: HOME SELF-CARE
== END 2016-11-18 09:57 | disposition home or self-care (01) | DRG 392 ==
LOC: EC 10:18 → 3SUR 15:35
PROVIDERS: ADMIT Surgery; ATTEND Surgery
DX: R10.32 Left lower quadrant pain (principal); I10 Essential (primary) hypertension; E89.0 Postprocedural hypothyroidism; E78.5 Hyperlipidemia, unspecified; K21.9 Gastro-esophageal reflux disease without esophagitis; K64.9 Unspecified hemorrhoids; K58.9 Irritable bowel syndrome, unspecified; J45.909 Unspecified asthma, uncomplicated; E11.9 Type 2 diabetes mellitus without complications; Z88.0 Allergy status to penicillin; Z86.19 Personal history of other infectious and parasitic diseases; Z79.899 Other long term (current) drug therapy; Z80.8 Family history of malignant neoplasm of other organs or systems; Z79.82 Long term (current) use of aspirin; Z87.19 Personal history of other diseases of the digestive system; Z98.52 Vasectomy status; Z90.49 Acquired absence of other specified parts of digestive tract; Z79.84 Long term (current) use of oral hypoglycemic drugs
CPT/HCPCS: 36415; 74000; 74177; 80053; 81001; 82150; 83036; 83605; 83690; 85025; 87040

== ENCOUNTER → 2017-01-24 | Outpatient (CLI) | payer MEDICAID, OTHER ==
--- NOTE | 2017-01-24 15:21 | US ---
EXAMINATION TYPE: US thyroid st tissue head/neck DATE OF EXAM: 01/24/2017 COMPARISON: US January 19, 2016 CLINICAL HISTORY: E04.1 Thyroid nodule. Follow up to right thyroidectomy 1 year ago GLAND SIZE: Right Lobe: surgically absent Left Lobe: 5.6 x 1.8 x 1.6 cm Overall Parenchyma: homogeneous Isthmus Thickness: 0.4 cm NODULES RIGHT: surgically absent LEFT: # of nodules measured on left: 0 ISTHMUS: # of nodules measured in the isthmus: 0 Bilateral neck scanned, left neck: 1.4 x 0.5 x 0.8cm hypoechoic solid vascular structure lateral to t hyroid, probable lymph node. Right thyroidectomy, homogeneous slightly enlarged left lobe without any nodules seen at this time. Lymph node identified by technologist appears to have benign morphology. IMPRESSION: Interval right-sided partial thyroidectomy. No suspicious residual tissue in right thyroid bed. No blandon spicious new left-sided nodularity seen.
== END | disposition home or self-care (01) ==
LOC: RADUSWWP 14:49
PROVIDERS: ATTEND Surgery
DX: E04.1 Nontoxic single thyroid nodule (principal); Z90.89 Acquired absence of other organs
CPT/HCPCS: 76536

== ENCOUNTER → 2017-06-12 | Outpatient (CLI) | payer MEDICAID, OTHER ==
[2017-06-12 16:34] LABS: Hemoglobin A1C 5.5 % (4.0-6.0)
== END | disposition home or self-care (01) ==
LOC: LABWHC1 07:05
PROVIDERS: ATTEND Family Medicine
DX: E11.9 Type 2 diabetes mellitus without complications (principal)
CPT/HCPCS: 36415; 83036

== ENCOUNTER → 2017-12-05 | Outpatient (CLI) | payer MEDICAID, OTHER | END | disposition home or self-care (01) | LOC: LABWHC1 10:23 | PROVIDERS: ATTEND Radiology Diagnostic Radiology | DX: N28.9 Disorder of kidney and ureter, unspecified (principal) | CPT/HCPCS: 36415; 82565 ==

== ENCOUNTER → 2017-12-14 | Outpatient (CLI) | payer MEDICAID, OTHER ==
--- NOTE | 2017-12-14 19:42 | EEG ---
ELECTROENCEPHALOGRAM REPORT DATE OF OUTPATIENT EE12/14/2017 ELECTROENCEPHALOGRAPHIC EXAMINATION REPORT: INDICATION FOR EXAMINATION: This patient is a 62-year-old male with history of visual disturbance and mood disorder. AGE: [age]. EEG FINDINGS: A routine 21-channel awake digital EEG recording was accomplished utilizing the 10-20 international system with bipolar and referential montages. The background activity in the most alert resting state consists of a low to medium amplitude, fairly well developed and well sustained 6-7 Hz activity over the posterior head region. This posterior rhythm attenuates to eye opening. There is a small amount of low amplitude 18-20 Hz beta activity seen maximally over the anterior head regions. Muscle and movement artifact was observed on a few occasions during the tracing. Hyperventilation was not performed. Photic stimulation at flash frequencies of 2-30 Hz produced a minimal occipital driving response. No epileptiform discharges were seen. IMPRESSION: This EEG is mildly abnormal in a diffuse fashion due to slight slowing of the EEG background. The EEG failed to reveal any focal, lateralized, or epileptiform abnormalities. Clinical correlation is recommended. MMODL / IJN: [id number] /
== END | disposition home or self-care (01) ==
LOC: NEUROMAIN 07:54
PROVIDERS: ATTEND Psychiatry & Neurology Neurology
DX: Z86.73 Personal history of transient ischemic attack (TIA), and cerebral infarction without residual deficits (principal)
CPT/HCPCS: 95819

== ENCOUNTER 2018-02-25 18:46 | Emergency (ER) | payer MEDICAID, OTHER ==
[2018-02-25 18:57] VITALS: BP 141/79; PULSE 75; RESP 16; TEMP 97.1
[2018-02-25] MEDS ORDERED: DIPH,PERTUS(ACELL)TETVAC-LF 0.5 ML VIAL IM ONE (19:01)
[2018-02-25] MEDS ORDERED: HYDROcodone/APAP 5-325MG 1 EACH TAB PO STA (19:01)
[2018-02-25] MEDS ORDERED: HYDROmorphone 1 MG/ML 1 ML SYRINGE IM STA (19:10)
[2018-02-25] MEDS ORDERED: KETOROLAC 30 MG/ML 1 ML VIAL IM STA (19:10)
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
[2018-02-25] MEDS ORDERED: ACET/COD 300 MG/30 MG STARTER PACK 6 TAB BTL PO STA (19:35)
== END 2018-02-25 20:17 | disposition home or self-care (01) ==
LOC: EC 18:46
DX: T23.152A Burn of first degree of left palm, initial encounter (principal); T31.0 Burns involving less than 10% of body surface; E11.9 Type 2 diabetes mellitus without complications; K21.9 Gastro-esophageal reflux disease without esophagitis; E78.5 Hyperlipidemia, unspecified; I10 Essential (primary) hypertension; Z23 Encounter for immunization; Z87.19 Personal history of other diseases of the digestive system; Z98.890 Other specified postprocedural states; Z98.52 Vasectomy status; Z79.82 Long term (current) use of aspirin; Z79.84 Long term (current) use of oral hypoglycemic drugs; Z79.899 Other long term (current) drug therapy; Z88.0 Allergy status to penicillin; X15.8XXA Contact with other hot household appliances, initial encounter; Y93.G3 Activity, cooking and baking
CPT/HCPCS: 90715; 99283; 96372 ×2; 90471; J1885; J1170

== ENCOUNTER → 2018-04-22 | Outpatient (CLI) | payer MEDICAID, OTHER ==
--- NOTE | 2018-04-22 14:51 | XR ---
EXAMINATION TYPE: XR abdomen 1V DATE OF EXAM: 04/22/2018 2:34 PM CLINICAL HISTORY: Epigastric abdominal pain, nausea for one week TECHNIQUE: Two supine KUB images of the abdomen are obtained. COMPARISON: Abdominal x-ray and CT abdomen and pelvis November 17, 2016 FINDINGS: Scattered gas is seen in non-distended small bowel loops. Gas and fecal material is seen in non-distended colon and rectum. Surgical clips are redemonstrated over the sacrum. No suspicious terrance cification is seen. Lung bases are clear. Visualized osseous structures are intact. IMPRESSION: Overall nonobstructive bowel gas pattern.
== END | disposition home or self-care (01) ==
LOC: RADXRMAIN 14:15
PROVIDERS: ATTEND Family Medicine
DX: R10.13 Epigastric pain (principal)
CPT/HCPCS: 74018

== ENCOUNTER 2018-05-03 10:16 | Day surgery (SDC) | payer MEDICAID, OTHER ==
[2018-05-02 08:49] VITALS: BMI 29.5
[~2018-05-03 10:16] MED LIST changes: -DEXAMETHASONE SOD PHOSPHATE 10 MG/ML 1 ML VIAL IV ONE; -HEPARIN SODIUM,PORCINE 5,000 UNIT/ML 1 ML VIAL SQ ONE; -HYDROmorphone 1 MG/ML 1 ML SYRINGE IVP PRN; -MIDAZOLAM 2 MG/2 ML VIAL IV PRN; -ONDANSETRON 4 MG/2 ML VIAL IVP ONE; -SCOPOLAMINE 1.5MG/72HR PATCH TRANSDERM ONE
[2018-05-03 10:58] VITALS: TEMP 96.9
[2018-05-03] MEDS ORDERED: LIDOCAINE 1% INJ 10MG/ML (20 ML MDV) ONE (12:05)
[2018-05-03] MEDS ORDERED: PROPOFOL 10 MG/ML 20 ML VIAL IV ONE (12:05)
[2018-05-03 12:34] VITALS: BP 109/73; PULSE 95; RESP 16
--- NOTE | 2018-05-03 12:35 | P.OP ---
Date of Procedure: 05/03/18 Preoperative Diagnosis: Nausea Abdominal pain Postoperative Diagnosis: Hiatal hernia Gastric polyps Gastritis Duodenitis Diverticulosis Patent anastomosis Internal and external hemorrhoids Procedure(s) Performed: Esophagogastroduodenoscopy with biopsy and polypectomy Colonoscopy Surgeon: Dom Gonzalez Pathology: other Condition: stable Disposition: same day Indications for Procedure: 63-year-old male complains of abdominal pain and nausea. Secondary to this, we did plan for upper and lower endoscopy. The patient was extremely risks, benefits and alternatives to the procedure and did provide consent prior to attending the endoscopy suite. Operative Findings: Multiple gastric polyps Hiatal hernia Gastritis Duodenitis Diverticulosis Patent anastomosis from previous colorectal surgery Description of Procedure: The patient was brought into the endoscopy suite and placed in left lateral decubitus position. When adequate level of sedation was achieved, the gastroscope was inserted into the hypopharynx and was entered into the hypopharynx. Esophagus was easily intubated and traversed. The scope was then traversed towards the third portion of duodenum. The scope was then slowly retrieved and the second and first portion of the duodenum were visualized. There were mild inflammatory changes and biopsies were taken. The scope was then retrieved into the antrum. There was some noted gastritis and biopsies were taken. A retroflexed view did reveal the fundus and the body of the stomach with no evidence of streaking. There was a notable hiatal hernia. Multiple small polyps were noted throughout the gastric mucosa. Polypectomy was performed on all area the scope was then retrieved to the GE junction. This area was unremarkable. Biopsies were taken. The scope was then fully withdrawn. A digital rectal exam was performed and internal hemorrhoids and external hemorrhoids were palpated. An endoscope was then placed in the rectum and advanced to the cecum as identified by landmarks including the appendiceal orifice and the ileocecal valve. The prep was good. The colonoscope was then slowly withdrawn, examining for any mucosal abnormalities. The cecum, ascending , transverse, descending colon were visualized adequately along with the previous anastomosis from previous colorectal surgery. There were no obvious neoplastic lesions throughout the colon. There were no polyps noted throughout the colon. There were scattered large diverticuli noted throughout the colon. The anastomosis was patent with no obvious ulceration. There was no obvious source of bleeding. Retroflexion was performed in the rectum and internal hemorrhoids were visible. Excess air was removed and the colonoscope was withdrawn and the procedure was terminated. The patient was then transferred to postanesthesia recovery unit in stable condition. Repeat colonoscopy should be performed in 5 years.
--- NOTE | 2018-05-08 09:16 | CDI ---
Date: 05/08/18 CDS/Harp Maker Name: Rocío Doss Phone: If any questions, call Keara Madsen Utilization Review Nurse at [phone] Patient Name: Sorin Segundo Admit Date: 05/03/18 Discharge Date: 05/03/18 ATTENTION: The [facility] Coding Staff appreciate your assistance in clarifying documentation. Please respond to the clarification below the line at the bottom and electronically sign. The [facility] Coding staff will review the response and follow-up if needed. Please note: Queries are made part of the Legal Health Record. If you have any questions, please contact the Utilization Review Nurse. Dear Dr. Gonzalez, Please provide clarification as to the type of polypectomy that was performed on the gastric mucosa. Please clarify if they were performed with snare or cold biopsy forceps. Thank you for your kind consideration. heated snare polypectomy was performed to remove the polyps on the gastric mucosa MTDD
== END 2018-05-03 13:17 | disposition home or self-care (01) ==
LOC: ORWHC2ENDO 10:16
PROVIDERS: ATTEND Surgery
DX: K29.50 Unspecified chronic gastritis without bleeding (principal); K31.7 Polyp of stomach and duodenum; K29.80 Duodenitis without bleeding; K44.9 Diaphragmatic hernia without obstruction or gangrene; K64.8 Other hemorrhoids; K64.4 Residual hemorrhoidal skin tags; K57.30 Diverticulosis of large intestine without perforation or abscess without bleeding; Z98.0 Intestinal bypass and anastomosis status; Z87.19 Personal history of other diseases of the digestive system; I10 Essential (primary) hypertension; E11.9 Type 2 diabetes mellitus without complications; E55.9 Vitamin D deficiency, unspecified; J45.909 Unspecified asthma, uncomplicated; K21.9 Gastro-esophageal reflux disease without esophagitis; G47.33 Obstructive sleep apnea (adult) (pediatric); E78.49 Other hyperlipidemia; E04.9 Nontoxic goiter, unspecified; M19.90 Unspecified osteoarthritis, unspecified site; Z79.84 Long term (current) use of oral hypoglycemic drugs; Z79.82 Long term (current) use of aspirin; Z79.51 Long term (current) use of inhaled steroids; Z79.899 Other long term (current) drug therapy; Z88.0 Allergy status to penicillin
CPT/HCPCS: 88305; 45378; 43239; 43251; J2001; J2704

== ENCOUNTER → 2018-05-03 | Outpatient (CLI) | payer MEDICAID, OTHER ==
--- NOTE | 2018-05-03 10:17 | US ---
EXAMINATION TYPE: US abdomen complete DATE OF EXAM: 05/03/2018 COMPARISON: CT 2017, US 2016 CLINICAL HISTORY: ABDOMINAL PAIN. Intermittent nausea x couple weeks EXAM MEASUREMENTS: Liver Length: 14.4 cm Gallbladder Wall: 0.2 cm CBD: 0.4 cm Spleen: 12.2 cm Right Kidney: 10.8 x 6.0 x 5.7 cm Left Kidney: 11.9 x 5.3 x 5.7 cm Pancreas: obscured by overlying midline bowel gas Liver: wnl Gallbladder: wnl Evidence for sonographic Kline's sign: no CBD: visualized portions wnl, limited by overlying bowel gas Spleen: wnl Right Kidney: wnl Left Kidney: wnl Upper IVC: wnl Abd Aorta: wnl IMPRESSION: 1. Normal abdomen ultrasound
== END | disposition home or self-care (01) ==
LOC: RADUSWWP 08:08
PROVIDERS: ATTEND Surgery
DX: R10.9 Unspecified abdominal pain (principal)
CPT/HCPCS: 76700

== ENCOUNTER → 2018-07-11 | Outpatient (CLI) | payer MEDICAID, OTHER ==
[2018-07-11 20:20] LABS: Hemoglobin A1C 5.6 % (4.0-6.0)
== END | disposition home or self-care (01) ==
LOC: LABWHC1 09:32
PROVIDERS: ATTEND Family Medicine
DX: E55.9 Vitamin D deficiency, unspecified (principal); E11.9 Type 2 diabetes mellitus without complications
CPT/HCPCS: 36415; 82306; 83036

== ENCOUNTER → 2018-10-07 | Outpatient (CLI) | payer MEDICAID, OTHER ==
--- NOTE | 2018-10-08 07:01 | US ---
EXAMINATION TYPE: US thyroid st tissue head/neck DATE OF EXAM: 10/07/2018 COMPARISON: US CLINICAL HISTORY: R22.1 Neck swelling. GLAND SIZE: Right Lobe: Surgically absent cm Left Lobe: 5.2 x 2.4 x 1.9 cm Overall Parenchyma: homogeneous Isthmus Thickness: 0.5 cm NODULES RIGHT: # of nodules measured on right: surgically absent LEFT: # of nodules measured on left: 0 ISTHMUS: # of nodules measured in the isthmus: Bilateral neck scanned, no evidence of lymphadenopathy. Patient feels lump left side of neck. Patient stated the area was scanned during exam. There is a nor mal appearing node left lateral neck. No other abnormality noted. Node seen laterally in the left neck shows a similar appearance to prior exam. IMPRESSION: Status post right hemithyroidectomy. At the site of patient's palpable abnormality there is a normal- appearing lymph node present.
== END | disposition home or self-care (01) ==
LOC: RADUSWWP 16:40
PROVIDERS: ATTEND Family Medicine
DX: R22.1 Localized swelling, mass and lump, neck (principal); Z90.89 Acquired absence of other organs
CPT/HCPCS: 76536

== ENCOUNTER → 2019-01-01 | Outpatient (CLI) | payer MEDICAID, MEDICARE ==
[2019-01-01 13:28] LABS: Hemoglobin A1C 5.6 % (4.0-6.0)
== END | disposition home or self-care (01) ==
LOC: LABWHC1 07:08
PROVIDERS: ATTEND Family Medicine
DX: E11.9 Type 2 diabetes mellitus without complications (principal); M79.675 Pain in left toe(s)
CPT/HCPCS: 36415; 83036; 84550

== ENCOUNTER → 2019-01-16 | Outpatient (CLI) | payer MEDICAID, MEDICARE | END | disposition home or self-care (01) | LOC: LABWHC1 07:05 | PROVIDERS: ATTEND Family Medicine | DX: E11.9 Type 2 diabetes mellitus without complications (principal); Z98.890 Other specified postprocedural states | CPT/HCPCS: 36415; 84443 ==

== ENCOUNTER → 2019-04-04 | Outpatient (CLI) | payer MEDICAID, MEDICARE ==
[2019-04-04 07:28] LABS: Basophils % (A) 1 %; Eosinophils # (A) 0.1 k/uL (0-0.7); Eosinophils % (A) 2 %; HCT 46.5 % (39.0-53.0); HGB 15.1 gm/dL (13.0-17.5); Lymphocytes # (A) 1.2 k/uL (1.0-4.8); Lymphocytes % (A) 18 %; MCH 29.3 pg (25.0-35.0); MCHC 32.4 g/dL (31.0-37.0); MCV 90.5 fL (80.0-100.0); Mean Platelet Volume 7.1; Monocytes # (A) 0.4 k/uL (0-1.0); Monocytes % (A) 6 %; Neutrophils # (A) 4.5 k/uL (1.3-7.7); Neutrophils % (A) 70 %; Platelet Count 237 k/uL (150-450); RBC 5.14 m/uL (4.30-5.90); RDW 13.3 % (11.5-15.5); WBC 6.4 k/uL (3.8-10.6)
[2019-04-04 11:32] LABS: Hemoglobin A1C 5.5 % (4.0-6.0)
[2019-04-04 12:21] LABS: African American GFR (CKD) 66.4 (60.0-200.0); Albumin 4.5 g/dL (3.80-4.90); Albumin/Globulin Ratio 2.65 (1.60-3.17); Anion Gap 12.4 mmol/L (4.00-12.00); BUN/Creat Ratio 16.92 Ratio (12.00-20.00); Calcium 9.3 mg/dL (8.7-10.3); Carbon Dioxide 24.6 mmol/L (21.6-31.8); Globulin 1.7 g/dL (1.6-3.3); Non-African American GFR(CKD) 57.3 (60.0-200.0); Potassium 3.8 mmol/L (3.5-5.5); Total Bilirubin 0.7 mg/dL (0.2-1.2); Total Protein 6.2 g/dL (6.2-8.2)
== END | disposition home or self-care (01) ==
LOC: LABWHC1 07:03
PROVIDERS: ATTEND Family Medicine
DX: E11.9 Type 2 diabetes mellitus without complications (principal); I10 Essential (primary) hypertension; Z12.5 Encounter for screening for malignant neoplasm of prostate
CPT/HCPCS: 36415; 80053; 83036; 84153; 85025

== ENCOUNTER → 2019-04-24 | Day surgery (SDC) | payer MEDICAID, MEDICARE ==
[2019-04-22 09:37] VITALS: BMI 28.5
[~2019-04-24] MED LIST changes: +GLYCOPYRROLATE 0.2 MG/ML 2 ML VIAL ONE; +LACTATED RINGERS 1,000 ML IV ONE; +PROPOFOL 10 MG/ML 20 ML VIAL IV ONE
[2019-04-24 13:46] VITALS: TEMP 96.6
[2019-04-24 13:56] LABS: Glucose,Whole Blood 90 mg/dL (75-99)
[2019-04-24 14:42] VITALS: BP 109/70; PULSE 71; RESP 16
--- NOTE | 2019-04-24 14:46 | P.OP ---
Date of Procedure: 04/24/19 Preoperative Diagnosis: GERD History of polyps Postoperative Diagnosis: duodenal polyp Gastric polyps Procedure(s) Performed: EGD with polypectomy and biopsy Surgeon: Dom Gonzalez Pathology: other (biopsy of the antrum, polypectomy of duodenal polyp and gastric polyp, biopsy of esophagus) Condition: stable Disposition: same day Indications for Procedure: this is a patient that is well known to ri secondary to history of gastric polyps. He presents today for an upper endoscopy due to evaluation for GERD and history of polyps. He was explained the risks, benefits and alternatives to the procedure did provide consent prior to attending the endoscopy suite. Operative Findings: duodenal polyp Gastric polyp Description of Procedure: the patient was brought into the endoscopy suite. He was then placed in left lateral decubitus position and adequate sedation was achieved using conscious sedation. A bite block was placed and endoscope was placed in the oropharynx and advanced under endoscopic visualization. The endoscope was advanced through the esophagus into the stomach, through the gastric antrum and into the pylorus. A third portion of duodenum was visualized. The endoscope was then slowly withdrawn. The first portion of the duodenum was noted to have a polyp. Polypectomy was performed. The antrum was noted to have some mild inflammatory changes. Biopsy was performed. The gastric body distended normally gastric folds were noted to have gastric polyps, mostly unchanged from previous exam. A polypectomy was performed of one of the gastric polyps. A retroflexed view of the fundus and GE junction revealed a mild hiatal hernia. The esophagus appeared endoscopically normal. Biopsies were taken. Excess air was removed and the scope was withdrawn and the procedure was completed.
== END | disposition home or self-care (01) ==
LOC: ORWHC2ENDO 12:48
PROVIDERS: ATTEND Surgery
DX: K31.7 Polyp of stomach and duodenum (principal); K21.9 Gastro-esophageal reflux disease without esophagitis; K29.70 Gastritis, unspecified, without bleeding; K44.9 Diaphragmatic hernia without obstruction or gangrene; I10 Essential (primary) hypertension; E78.5 Hyperlipidemia, unspecified; G47.33 Obstructive sleep apnea (adult) (pediatric); E11.65 Type 2 diabetes mellitus with hyperglycemia; J45.909 Unspecified asthma, uncomplicated; E07.9 Disorder of thyroid, unspecified; Z88.0 Allergy status to penicillin; Z90.49 Acquired absence of other specified parts of digestive tract; Z79.82 Long term (current) use of aspirin; Z79.51 Long term (current) use of inhaled steroids; Z79.84 Long term (current) use of oral hypoglycemic drugs; Z79.899 Other long term (current) drug therapy; Z98.52 Vasectomy status; Z90.89 Acquired absence of other organs; Z80.6 Family history of leukemia
CPT/HCPCS: 88305; 43239; J2704

== ENCOUNTER → 2019-07-02 | Outpatient (CLI) | payer MEDICAID, MEDICARE ==
--- NOTE | 2019-07-02 10:59 | CT ---
EXAMINATION TYPE: CT abdomen pelvis w con DATE OF EXAM: 07/02/2019 COMPARISON: 11/17/2016 INDICATION: Diverticulitis DLP: 1502 mGycm, Automated exposure control for dose reduction was used. CONTRAST: 100 mL of Isovue 300. Study performed with Oral Contrast TECHNIQUE: Axial images were obtained from above the diaphragm to the pubic rami in the axial plane a t 5 mm thick sections. Reconstructed images are reviewed on the computer in the coronal plane. FINDINGS: Limited CT sections are obtained the lung bases. The lung bases are clear. CT ABDOMEN: Liver: Normal Spleen: Normal Pancreas: Normal Adrenal glands: The adrenal glands are normal. Gallbladder: Normal Kidneys: No masses are evident. No hydronephrosis is present. No cysts are present. Delayed images were obtained through the kidneys, which remain unremarkable. Aorta: Vascular calcification is within the aorta. Inferior vena cava: Normal. CT PELVIS: Diverticular changes are within the sigmoid colon. No suspicious inflammatory changes are adjacent to suggest acute diverticulitis. Colon appears unremarkable. Some fecal debris is present. Some mild wa ll thickening of the proximal jejunum is present best visualized in the coronal plane. The ileum and more proximal jejunum appears normal. No dilated loops of bowel are evident. Consider mild jejunitis. Appendix: Normal as visualized. Urinary bladder: Normal. Genitourinary structures: Prostate is prominent. Osseous structures: No suspicious lytic or sclerotic lesions. Facet degenerative changes are within t he lumbar spine. IMPRESSIONS: 1. Diverticulosis without acute diverticulitis. 2. Mild wall prominence of the proximal jejunum. Correlate for mild jejunitis left upper quadrant.
== END | disposition home or self-care (01) ==
LOC: RADCTMAIN 06:55
PROVIDERS: ATTEND Surgery
DX: K57.90 Diverticulosis of intestine, part unspecified, without perforation or abscess without bleeding (principal)
CPT/HCPCS: 82565; 84520; 74177; 36415; Q9967

== ENCOUNTER → 2019-07-04 | Outpatient (CLI) | payer MEDICAID, MEDICARE ==
[2019-07-04 07:36] LABS: T4, Free (Free Thyroxine) 1.01 ng/dL (0.78-2.19)
[2019-07-04 14:24] LABS: Hemoglobin A1C 5.6 % (4.0-6.0)
== END | disposition home or self-care (01) ==
LOC: LAB 06:40
PROVIDERS: ATTEND Family Medicine
DX: E11.9 Type 2 diabetes mellitus without complications (principal); R53.83 Other fatigue
CPT/HCPCS: 83036; 84439; 84443

== ENCOUNTER → 2020-07-30 | Outpatient (CLI) | payer MEDICAID, MEDICARE ==
[2020-07-30 10:54] LABS: Basophils # (A) 0.04 X 10*3/uL (0.00-0.10); Basophils % (A) 0.7 %; Eosinophils # (A) 0.15 X 10*3/uL (0.04-0.35); Eosinophils % (A) 2.7 %; HCT 38.8 % (39.6-50.0); HGB 11.8 g/dL (13.0-17.0); Lymphocytes # (A) 0.99 X 10*3/uL (0.90-5.00); Lymphocytes % (A) 17.5 %; MCH 24.6 pg (27.0-32.0); MCHC 30.4 g/dL (32.0-37.0); MCV 80.8 fL (80.0-97.0); Mean Platelet Volume 10.8 fL (9.5-12.2); Monocytes # (A) 0.46 X 10*3/uL (0.20-1.00); Monocytes % (A) 8.1 %; Neutrophils % (A) 70.8 %; Platelet Count 263 X 10*3/uL (140-440); WBC 5.65 X 10*3/uL (4.50-10.00)
[2020-07-30 14:28] LABS: African American GFR (CKD) 80.6 (60.0-200.0); Albumin 4.3 g/dL (3.80-4.90); Albumin/Globulin Ratio 2.87 (1.60-3.17); Anion Gap 10.2 mmol/L (4.00-12.00); BUN/Creat Ratio 18.18 Ratio (12.00-20.00); Calcium 9.5 mg/dL (8.7-10.3); Carbon Dioxide 25.8 mmol/L (21.6-31.8); Chol/HDL Ratio 2.92; Globulin 1.5 g/dL (1.6-3.3); LDL Cholesterol,Calculated 55.6 mg/dL (0.0-131.0); Non-African American GFR(CKD) 69.6 (60.0-200.0); Potassium 4.1 mmol/L (3.5-5.5); Total Bilirubin 0.3 mg/dL (0.2-1.2); Total Protein 5.8 g/dL (6.2-8.2); VLDL Calculation 17.4 mg/dL (5.00-40.00)
[2020-07-30 14:36] LABS: T4, Free (Free Thyroxine) 1.1 ng/dL (0.80-1.80)
[2020-07-30 14:37] LABS: Prostate Specific Antigen 1.6 ng/mL (0.0-4.5)
[2020-07-30 16:28] LABS: Hemoglobin A1C 5.7 % (4.0-6.0)
[2020-07-31 02:11] LABS: % Iron Saturation 13.98 (15.00-50.00)
[2020-07-31 02:19] LABS: Ferritin 36.5 ng/mL (22.0-322.0)
[2020-07-31 03:13] LABS: Folate, Serum 22.3 ng/mL
== END | disposition home or self-care (01) ==
LOC: LABWHC1 07:09
PROVIDERS: ATTEND Internal Medicine
DX: Z00.00 Encounter for general adult medical examination without abnormal findings (principal); D64.9 Anemia, unspecified
CPT/HCPCS: 36415; 80053; 80061; 82607; 82728; 82746; 83036; 83540; 83550; 84153; 84439; 84443; 85025

== ENCOUNTER → 2020-09-01 | Outpatient (CLI) | payer MEDICAID, MEDICARE ==
[2020-09-01 20:50] LABS: Basophils # (A) 0.04 X 10*3/uL (0.00-0.10); Basophils % (A) 0.7 %; Eosinophils # (A) 0.09 X 10*3/uL (0.04-0.35); Eosinophils % (A) 1.5 %; HCT 41.1 % (39.6-50.0); HGB 12.6 g/dL (13.0-17.0); Lymphocytes # (A) 0.88 X 10*3/uL (0.90-5.00); Lymphocytes % (A) 14.6 %; MCH 25.7 pg (27.0-32.0); MCHC 30.7 g/dL (32.0-37.0); MCV 83.9 fL (80.0-97.0); Mean Platelet Volume 11.2 fL (9.5-12.2); Monocytes # (A) 0.49 X 10*3/uL (0.20-1.00); Monocytes % (A) 8.1 %; Neutrophils % (A) 74.8 %; Platelet Count 230 X 10*3/uL (140-440); RDW 19.9 % (11.5-14.5); WBC 6.02 X 10*3/uL (4.50-10.00)
[2020-09-02 02:20] LABS: Folate, Serum 9.9 ng/mL
[2020-09-02 02:51] LABS: % Iron Saturation 91.39 (15.00-50.00); Ferritin 15.6 ng/mL (22.0-322.0)
== END | disposition home or self-care (01) ==
LOC: LABWHC1 11:31
PROVIDERS: ATTEND Internal Medicine
DX: D64.9 Anemia, unspecified (principal)
CPT/HCPCS: 36415; 82728; 82746; 83540; 83550; 85025

== ENCOUNTER → 2021-07-21 | Outpatient (CLI) | payer MEDICAID, MEDICARE ==
[2021-07-21 08:37] LABS: Appearance,Urine Clear (Clear); Bilirubin,Urine Negative (Negative); Blood,Urine Negative (Negative); Color,Urine Yellow; Glucose,Urine (UA) Negative (Negative); Ketones,Urine Negative (Negative); Leukocyte Esterase,Urine Negative (Negative); Nitrite,Urine Negative (Negative); PH, Urine 6.5 (5.0-8.0); Protein,Urine Negative (Negative); Urobilinogen,Urine <2.0 mg/dL (<2.0)
[2021-07-21 10:51] LABS: Protein, Total 6.3 g/dL (6.2-8.2)
[2021-07-21 11:39] LABS: % Iron Saturation 6.48 (15.00-50.00); ALT 14 U/L (10-49); AST 16 U/L (14-35); African American GFR (CKD) 84.7 (60.0-200.0); Albumin 4.1 g/dL (3.8-4.9); Alkaline Phosphatase 62 U/L (41-126); BUN/Creat Ratio 15.62 Ratio (12.00-20.00); Blood Urea Nitrogen 16.4 mg/dL (9.0-27.0); Calcium 9.1 mg/dL (8.7-10.3); Carbon Dioxide 21.9 mmol/L (20.0-27.5); Chloride 105 mmol/L (96-109); Chol/HDL Ratio 2.49 Ratio; Ferritin 24.4 ng/mL (22.0-322.0); Glucose 118 mg/dL (70-110); Iron 25 ug/dL (65-175); LDL Cholesterol,Calculated 48.7 mg/dL (0.0-131.0); Non-African American GFR(CKD) 73.1 (60.0-200.0); Potassium 3.8 mmol/L (3.5-5.5); Sodium 142 mmol/L (135-145); Total Iron Binding Capacity 379 ug/dL (228-460); Total Protein 6.1 g/dL (6.2-8.2); VLDL Calculation 14.76 mg/dL (5.00-40.00)
[2021-07-21 12:06] LABS: Basophils # (A) 0.04 X 10*3/uL (0.00-0.10); Basophils % (A) 0.8 %; Eosinophils # (A) 0.11 X 10*3/uL (0.04-0.35); Eosinophils % (A) 2.1 %; HCT 39.6 % (39.6-50.0); HGB 11.8 g/dL (13.0-17.0); Immature Grans, Automated 0.4 %; Lymphocytes # (A) 0.87 X 10*3/uL (0.90-5.00); Lymphocytes % (A) 16.8 %; MCH 24.9 pg (27.0-32.0); MCHC 29.8 g/dL (32.0-37.0); MCV 83.5 fL (80.0-97.0); Monocytes # (A) 0.42 X 10*3/uL (0.20-1.00); Monocytes % (A) 8.1 %; NRBC Per 100 WBC 0 /100 WBCS (0.0-0.0); Neutrophils # (A) 3.73 X 10*3/uL (1.80-7.70); Neutrophils % (A) 71.8 %; Platelet Count 273 X 10*3/uL (140-440); RBC 4.74 X 10*6/uL (4.40-5.60); RDW 15.7 % (11.5-14.5); Reticulocyte % 2.05 % (0.10-1.80); WBC 5.19 X 10*3/uL (4.50-10.00)
[2021-07-21 15:32] LABS: Erythrocyte Sedimentation Rate 7 mm/Hr (0-20)
== END | disposition home or self-care (01) ==
LOC: LABWHC1 07:12
PROVIDERS: ATTEND Internal Medicine
DX: Z12.5 Encounter for screening for malignant neoplasm of prostate (principal); I10 Essential (primary) hypertension; E78.5 Hyperlipidemia, unspecified; D64.9 Anemia, unspecified
CPT/HCPCS: 36415; 80053; 80061; 81003; 82607; 82728; 83036; 83540; 83550; 84153; 84165; 84439; 84443; 85025; 85045; 85652

== ENCOUNTER → 2021-08-03 | Outpatient (CLI) | payer MEDICAID, MEDICARE | END | disposition home or self-care (01) | LOC: LABWHC1 09:47 | PROVIDERS: ATTEND Internal Medicine | DX: E61.1 Iron deficiency (principal) | CPT/HCPCS: 36415; 83036 ==

== ENCOUNTER 2021-10-28 06:40 | Day surgery (SDC) | payer MEDICAID, MEDICARE ==
[2021-10-26 11:58] VITALS: BMI 28.1
[~2021-10-28 06:40] MED LIST changes: -GLYCOPYRROLATE 0.2 MG/ML 2 ML VIAL ONE; -LACTATED RINGERS 1,000 ML IV ONE; -LIDOCAINE 1% 20 ML VIAL (10MG/ML) FOR IV START INTRADERMA PRN; -PROPOFOL 10 MG/ML 20 ML VIAL IV ONE
[2021-10-28 07:05] VITALS: RESP 16; TEMP 97.3
[2021-10-28 07:13] LABS: Glucose,Whole Blood 97 mg/dL (70-110)
[2021-10-28] MEDS ORDERED: fentaNYL (PF) 50 MCG/ML 2 ML AMP ONE (07:35)
[2021-10-28] MEDS ORDERED: LIDOCAINE 2% INJ 20 MG/ML (2 ML VIAL) ONE (07:35)
[2021-10-28] MEDS ORDERED: MIDAZOLAM 2 MG/2 ML VIAL ONE (07:35)
[2021-10-28] MEDS ORDERED: PROPOFOL 10 MG/ML 20 ML VIAL IV ONE (07:35)
[2021-10-28] MEDS ORDERED: PHENYLEPHRINE-0.9% NACL SYG 1,000 MCG/10 ML SYRINGE ONE (07:35)
--- NOTE | 2021-10-28 08:06 | P.HPIHPCON ---
History of Present Illness H&P Date: 10/28/21 66-year-old male presents today for upper and lower endoscopy. He does have a recent finding of anemia. 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 Patient denies any gross bleeding. Denies any hematemesis. States he does have occasional abdominal pain, specific to the left lower quadrant. Consent for Procedure: I have explained the operation/procedure to the patient, including the risks, benefits, side effects, alternative therapies (including not receiving the proposed treatment or service), the likelihood of the patient achieving his/her goals, and potential recuperation problems for the procedure/sedation/analgesia, as well as any blood products, if indicated. I also explained to the patient the risks, benefits and side effects of the alternatives, as well as the risks related to not receiving the proposed procedure, care, treatment, or services. - Review of Systems All systems: negative Past Medical History Past Medical History: Asthma, Blood Disorder, Diabetes Mellitus, GERD/Reflux, Hyperlipidemia, Hypertension, Osteoarthritis (OA), Sleep Apnea/CPAP/BIPAP, Thyroid Disorder Additional Past Medical History / Comment(s): Hx of diverticulitis with Bowel Resection., HX of thyroid nodule, uses C-Pap machine. IRON DEFICIENCY ANEMIA. DARK STOOLS. History of Any Multi-Drug Resistant Organisms: None Reported Date of last positivie culture/infection: 07/14/16 MDRO Source:: STOOL Past Surgical History: Adenoidectomy, Bowel Resection, Hernia Repair, Orthopedic Surgery, Tonsillectomy Additional Past Surgical History / Comment(s): R thyroid lobectomy, vasectomy, cyst removed left leg, ganglion cyst rt hand, L inguinal hernia repair x2, EGD/colonoscopy ., Hx c-diff 07/2016. Past Anesthesia/Blood Transfusion Reactions: No Reported Reaction Smoking Status: Never smoker - Past Family History Mother Family Medical History: Cancer Additional Family Medical History / Comment(s): melanoma Father Family Medical History: Cancer Additional Family Medical History / Comment(s): myelogenous leukemia Medications and Allergies Home Medications Medication Instructions Recorded Confirmed Type Atorvastatin [Lipitor] 10 mg PO HS 02/08/16 10/26/21 History Losartan Potassium 50 mg PO QAM 02/08/16 10/26/21 History Metoprolol Tartrate [Lopressor] 25 mg PO QAM 02/08/16 10/26/21 History hydroCHLOROthiazide [Hydrodiuril] 25 mg PO QAM 02/08/16 10/26/21 History Cholecalciferol [Vitamin D3 (25 2,000 unit PO DAILY 03/08/16 10/26/21 History Mcg = 1000 Iu)] metFORMIN HCL [Metformin HCl ER] 500 mg PO BID 07/14/16 10/26/21 History Aspirin [Adult Low Dose Aspirin EC] 81 mg PO DAILY 09/01/16 10/26/21 History Esomeprazole Magnesium [NexIUM] 20 mg PO HS 04/22/19 10/26/21 History Budesonide-Formot 160-4.5 Mcg 2 puff INHALATION BID 09/01/21 10/28/21 History [Symbicort 160-4.5 Mcg Inhaler] Ascorbic Acid [Vitamin C] 500 mg PO DAILY 10/26/21 10/26/21 History Cyanocobalamin (Vitamin B-12) 5,000 mcg PO DAILY 10/26/21 10/26/21 History [Vitamin B12] Ferrous Sulfate [Feosol] 325 mg PO DAILY 10/26/21 10/26/21 History Allergies Allergy/AdvReac Type Severity Reaction Status Date / Time Penicillins Allergy Rash/Hives Verified 10/28/21 07:02 Surgical - Exam Osteopathic Statement: *. No significant issues noted on an osteopathic structural exam other than those noted in the History and Physical/Consult. Vital Signs Temp Pulse Resp BP Pulse Ox 97.3 F L 61 16 125/74 98 10/28/21 07:04 10/28/21 07:04 10/28/21 07:04 10/28/21 07:04 10/28/21 07:04 - General no distress - Eyes normal ocular movement - Neck trachea midline - Respiratory normal respiratory effort - Abdomen Abdomen: soft, non tender - Psychiatric oriented to time, oriented to person, oriented to place Assessment and Plan Plan: 66-year-old male with anemia. Plan for upper and lower endoscopy. Further recommendations after procedure.
--- NOTE | 2021-10-28 08:11 | P.PCN ---
Date of Procedure: 10/28/21 Preoperative Diagnosis: Anemia Postoperative Diagnosis: Hiatal hernia Gastric polyps Duodenal polyps Gastritis Duodenitis Diverticulosis Ascending colon polyp Descending colon polyp Procedure(s) Performed: EGD with biopsy and polypectomy Colonoscopy with polypectomy Anesthesia: MAC Surgeon: Dom Gonzalez Pathology: other (Gastric polyps, duodenal polyps, Ascending colon polyp, descending colon polyp) Condition: stable Disposition: same day Indications for Procedure: 66-year-old male presents today for upper and lower endoscopy. He has a finding of recent anemia. He denies any gross blood per rectum. He denies any hematemesis. Risks, benefits and alternatives were presented to the patient. Operative Findings: Multiple gastric and duodenal polyps Gastritis Duodenitis Hiatal hernia Ascending colon polyp Descending colon polyp Diverticulosis Description of Procedure: The patient was brought to the endoscopy suite and placed in left lateral decubitus position and adequate sedation was achieved using conscious sedation. A bite block was placed and the endoscope was placed in the oropharynx and advanced under endoscopic visualization. The endoscope was advanced through the esophagus into the stomach, through the gastric antrum and in through the pylorus. The third portion of the duodenum was visualized. The endoscope was then slowly withdrawn. The first portion of duodenum was noted to have multiple duodenal polyps. These were biopsied using forcep polypectomy. The antrum was also noted to have multiple Cassy polyps. These were also biopsied with forcep polypectomy. The gastric body distended normally and the gastric folds appeared normal with multiple polyps. A retroflexed view the fundus and GE junction revealed a mild hiatal hernia. The esophagus appeared endoscopically normal. Biopsies of the distal esophagus were taken. Excess air was removed and the scope was withdrawn. A digital rectal exam was performed and mild internal hemorrhoids were palpated. An endoscope was then placed in the rectum and advanced to the cecum as identified by landmarks including the appendiceal orifice and the ileocecal valve. The prep was good. The colonoscope was then slowly withdrawn, examining for any mucosal abnormalities. The cecum, ascending, transverse, remaining descending and sigmoid colon were visualized adequately. Patient was found to have significant amount diverticulosis scattered throughout the colon. An ascending colon polyp was noted. This was removed with forcep polypectomy. A descending colon polyp was also noted and this was removed with forcep polypectomy. There were no large neoplastic lesions noted throughout the colon. Retroflexion was performed in the rectum and internal hemorrhoids were visible. Excess air was removed, the colonoscope withdrawn and the procedure terminated. The patient was then transferred to the recovery unit in stable condition. Repeat upper and lower endoscopy should be performed in 3 years.
[2021-10-28 08:44] VITALS: BP 112/78; PULSE 63
== END 2021-10-28 08:58 | disposition home or self-care (01) ==
LOC: ORWHC2ENDO 06:40
PROVIDERS: ATTEND Surgery
DX: D64.9 Anemia, unspecified (principal); K29.70 Gastritis, unspecified, without bleeding; K31.7 Polyp of stomach and duodenum; K29.80 Duodenitis without bleeding; D12.4 Benign neoplasm of descending colon; K64.8 Other hemorrhoids; K57.30 Diverticulosis of large intestine without perforation or abscess without bleeding; K44.9 Diaphragmatic hernia without obstruction or gangrene; K21.9 Gastro-esophageal reflux disease without esophagitis; J45.909 Unspecified asthma, uncomplicated; E11.9 Type 2 diabetes mellitus without complications; E78.5 Hyperlipidemia, unspecified; I10 Essential (primary) hypertension; M19.90 Unspecified osteoarthritis, unspecified site; E07.9 Disorder of thyroid, unspecified; D50.9 Iron deficiency anemia, unspecified; E04.1 Nontoxic single thyroid nodule; G47.33 Obstructive sleep apnea (adult) (pediatric); Z79.84 Long term (current) use of oral hypoglycemic drugs; Z79.82 Long term (current) use of aspirin; Z79.51 Long term (current) use of inhaled steroids; Z79.899 Other long term (current) drug therapy; Z88.0 Allergy status to penicillin; Z90.49 Acquired absence of other specified parts of digestive tract; Z90.89 Acquired absence of other organs; Z98.52 Vasectomy status; Z80.6 Family history of leukemia; Z80.8 Family history of malignant neoplasm of other organs or systems
CPT/HCPCS: 88305; 45380; 43239; J2250; J3010; J2370; J2704; J2001

== ENCOUNTER 2022-05-15 06:22 | Emergency (ER) | payer MEDICAID, MEDICARE, OTHER ==
[2022-05-15] MEDS ORDERED: SODIUM CHLORIDE 0.9% 1,000 ML IV STA (06:43)
--- NOTE | 2022-05-15 07:06 | ED ---
Abdominal Pain HPI - General Chief Complaint: Abdominal Pain Stated Complaint: ABD Pain Time Seen by Provider: 05/15/22 06:33 Source: patient, RN notes reviewed Mode of arrival: ambulatory Limitations: no limitations - History of Present Illness Initial Comments: 67-year-old male presents emergency Department chief complaint of abdominal pain. Patient states around [place] treated with ciprofloxacin for diverticulitis by his PCP. Patient states that over this last week he started having some intermittent mild pain but overnight has greatly worsened. He states he started having severe lower abdominal pain and some upper abdominal pain. Patient states that his upper abdominal pain does not radiate into his chest denies any back pain no jaw or arm pain. Patient states that he's had some mild diarrhea and no rectal bleeding. He has no dysuria no hematuria he did have some nausea which has resolved - Related Data Home Medications Medication Instructions Recorded Confirmed Atorvastatin [Lipitor] 10 mg PO HS 02/08/16 10/26/21 Losartan Potassium 50 mg PO QAM 02/08/16 10/26/21 Metoprolol Tartrate [Lopressor] 25 mg PO QAM 02/08/16 10/26/21 hydroCHLOROthiazide [Hydrodiuril] 25 mg PO QAM 02/08/16 10/26/21 Cholecalciferol [Vitamin D3 (25 2,000 unit PO DAILY 03/08/16 10/26/21 Mcg = 1000 Iu)] metFORMIN HCL [Metformin HCl ER] 500 mg PO BID 07/14/16 10/26/21 Aspirin [Adult Low Dose Aspirin EC] 81 mg PO DAILY 09/01/16 10/26/21 Esomeprazole Magnesium [NexIUM] 20 mg PO HS 04/22/19 10/26/21 Budesonide-Formot 160-4.5 Mcg 2 puff INHALATION BID 09/01/21 10/28/21 [Symbicort 160-4.5 Mcg Inhaler] Ascorbic Acid [Vitamin C] 500 mg PO DAILY 10/26/21 10/26/21 Cyanocobalamin (Vitamin B-12) 5,000 mcg PO DAILY 10/26/21 10/26/21 [Vitamin B-12] Ferrous Sulfate [Iron (65 MG 325 mg PO DAILY 10/26/21 10/26/21 Elemental)] Previous Rx's Medication Instructions Recorded Ciprofloxacin HCl [Cipro] 500 mg PO Q12HR #20 tablet 05/15/22 Dicyclomine [Bentyl] 20 mg PO TID #30 tablet 05/15/22 metroNIDAZOLE [Flagyl] 500 mg PO TID #30 tab 05/15/22 Allergies Allergy/AdvReac Type Severity Reaction Status Date / Time Penicillins Allergy Rash/Hives Verified 05/15/22 06:26 Review of Systems ROS Statement: Those systems with pertinent positive or pertinent negative responses have been documented in the HPI. ROS Other: All systems not noted in ROS Statement are negative. Past Medical History Past Medical History: Asthma, Blood Disorder, Diabetes Mellitus, GERD/Reflux, Hyperlipidemia, Hypertension, Osteoarthritis (OA), Sleep Apnea/CPAP/BIPAP, Thyroid Disorder Additional Past Medical History / Comment(s): Hx of diverticulitis with Bowel Resection., HX of thyroid nodule, uses C-Pap machine. IRON DEFICIENCY ANEMIA. DARK STOOLS. History of Any Multi-Drug Resistant Organisms: None Reported Date of last positivie culture/infection: 07/14/16 MDRO Source:: STOOL Past Surgical History: Adenoidectomy, Bowel Resection, Hernia Repair, Orthopedic Surgery, Tonsillectomy Additional Past Surgical History / Comment(s): R thyroid lobectomy, vasectomy, cyst removed left leg, ganglion cyst rt hand, L inguinal hernia repair x2, EGD/colonoscopy ., Hx c-diff 07/2016. Past Anesthesia/Blood Transfusion Reactions: No Reported Reaction Past Psychological History: No Psychological Hx Reported Smoking Status: Never smoker Past Alcohol Use History: None Reported Past Drug Use History: None Reported - Past Family History Mother Family Medical History: Cancer Additional Family Medical History / Comment(s): melanoma Father Family Medical History: Cancer Additional Family Medical History / Comment(s): myelogenous leukemia General Exam Limitations: no limitations General appearance: alert, in no apparent distress Head exam: Present: atraumatic, normocephalic, normal inspection Eye exam: Present: normal appearance, PERRL, EOMI. Absent: scleral icterus, conjunctival injection, periorbital swelling ENT exam: Present: normal exam, normal oropharynx, mucous membranes moist Neck exam: Present: normal inspection, full ROM. Absent: tenderness, meningismus, lymphadenopathy Respiratory exam: Present: normal lung sounds bilaterally. Absent: respiratory distress, wheezes, rales, rhonchi, stridor Cardiovascular Exam: Present: regular rate, normal rhythm, normal heart sounds. Absent: systolic murmur, diastolic murmur, rubs, gallop, clicks GI/Abdominal exam: Present: soft, tenderness (Moderate lower), normal bowel sounds. Absent: distended, guarding, rebound, rigid Course Vital Signs 05/15/22 05/15/22 05/15/22 06:26 07:40 08:00 Temperature 98.1 F Pulse Rate 79 83 Respiratory 16 18 18 Rate Blood Pressure 111/77 106/67 O2 Sat by Pulse 97 98 Oximetry 05/15/22 05/15/22 09:00 10:00 Temperature Pulse Rate Respiratory 18 Rate Blood Pressure 113/81 108/65 O2 Sat by Pulse Oximetry Medical Decision Making - Medical Decision Making Was pt. sent in by a medical professional or institution (Dr. PA, FIELD [employer]CH[employer], urgent care, hospital, or custodial...) When possible be specific @ -No Did you speak to anyone other than the patient for history (EMS, parent, family, police, friend...)? What history was obtained from this source @ -No Did you review nursing and triage notes (agree or disagree)? Why? @ -I reviewed and agree with nursing and triage notes Were old charts reviewed (outside hosp., previous admission, EMS record, old EKG, old radiological studies, urgent care reports/EKG's, custodial records)? Report findings @ -No old charts were reviewed Differential Diagnosis (chest pain, altered mental status, abdominal pain women, abdominal pain men, vaginal bleeding, weakness, fever, dyspnea, syncope, headache, dizziness, GI bleed, back pain, seizure, CVA, palpatations, mental health)? @ -Diverticulitis, appendicitis, colitis, bowel obstruction, gastroenteritis, this list is not conclusive. EKG interpreted by me (3pts min.). @ -As above X-rays interpreted by me (1pt min.). @ -None done CT interpreted by me (1pt min.). @ -CT of the abdomen pelvis does not show any acute process there is some diverticulosis type changes, postsurgical changes, prostate large amount U/S interpreted by me (1pt. min.). @ -None done What testing was considered but not performed or refused? (CT, X-rays, U/S, labs)? Why? @ -None What meds were considered but not given or refused? Why? @ -None Did you discuss the management of the patient with other professionals (professionals i.e. DrMable, PA, [employer], lab, RT, psych nurse, social services analyst, manager architectural, teacher, patrol officer, shelter case manager)? Give summary @ -No Was smoking cessation discussed for >3mins.? @ -No Was critical care preformed (if so, how long)? @ -No Were there social determinants of health that impacted care today? How? (Homelessness, low income, unemployed, alcoholism, drug addiction, transportation, low edu. Level, literacy, decrease access to med. care, penitentiary, rehab)? @ -No Was there de-escalation of care discussed even if they declined (Discuss DNR or withdrawal of care, Hospice)? DNR status @ -No What co-morbidities impacted this encounter? (DM, HTN, Smoking, COPD, CAD, Cancer, CVA, ARF, Chemo, Hep., AIDS, mental health diagnosis, sleep apnea, morbid obesity)? @ -None Was patient admitted / discharged? Hospital course, mention meds given and route, prescriptions, significant lab abnormalities, going to OR and other pertinent info. @ -[Discharged - patient had full set of labs, CT, EKG with findings of diverticulosis and concerning for early diverticulitis given pain, elevated white count. There is no evidence of perforation no cardiac issues at this time patient was offered admission versus discharge she opted for discharged with oral antibiotics close follow-up return parameters. Undiagnosed new problem with uncertain prognosis? @ -No Drug Therapy requiring intensive monitoring for toxicity (Heparin, Nitro, Insulin, Cardizem)? @ -No Were any procedures done? @ -No Diagnosis/symptom? @ -Diverticulitis Acute, or Chronic, or Acute on Chronic? @ -Acute Uncomplicated (without systemic symptoms) or Complicated (systemic symptoms)? @ -default Side effects of treatment? @ -No Exacerbation, Progression, or Severe Exacerbation? @ -Exacerbation Poses a threat to life or bodily function? How? (Chest pain, USA, IA, pneumonia, PE, COPD, DKA, ARF, appy, cholecystitis, CVA, Diverticulitis, Homicidal, Suicidal, threat to staff... and all critical care pts) @ -yes - Lab Data Result diagrams: 05/15/22 07:39 05/15/22 08:39 Lab Results 05/15/22 05/15/22 05/15/22 Range/Units 07:39 07:39 07:39 WBC 12.4 H (3.8-10.6) k/uL RBC 4.78 (4.30-5.90) m/uL Hgb 14.7 (13.0-17.5) gm/dL Hct 42.5 (39.0-53.0) % MCV 89.0 (80.0-100.0) fL MCH 30.7 (25.0-35.0) pg MCHC 34.5 (31.0-37.0) g/dL RDW 13.8 (11.5-15.5) % Plt Count 177 (150-450) k/uL MPV 9.0 Neutrophils % 92 % Lymphocytes % 3 % Monocytes % 3 % Eosinophils % 0 % Basophils % 0 % Neutrophils # 11.3 H (1.3-7.7) k/uL Lymphocytes # 0.4 L (1.0-4.8) k/uL Monocytes # 0.4 (0-1.0) k/uL Eosinophils # 0.0 (0-0.7) k/uL Basophils # 0.0 (0-0.2) k/uL Sodium (137-145) mmol/L Potassium (3.5-5.1) mmol/L Chloride (98-107) mmol/L Carbon Dioxide (22-30) mmol/L Anion Gap mmol/L BUN (9-20) mg/dL Creatinine (0.66-1.25) mg/dL Est GFR (CKD-EPI)AfAm (>60 ml/min/1.73 sqM) Est GFR (CKD-EPI)NonAf (>60 ml/min/1.73 sqM) Glucose (74-99) mg/dL Plasma Lactic Acid Darrick 1.6 (0.7-2.0) mmol/L Calcium (8.4-10.2) mg/dL Total Bilirubin (0.2-1.3) mg/dL AST (17-59) U/L ALT (4-49) U/L Alkaline Phosphatase (38-126) U/L Troponin I (0.000-0.034) ng/mL Total Protein (6.3-8.2) g/dL Albumin (3.5-5.0) g/dL Amylase (30-110) U/L Lipase (23-300) U/L Urine Color Yellow Urine Appearance Clear (Clear) Urine pH 7.5 (5.0-8.0) Ur Specific [place] 1.019 (1.001-1.035) Urine Protein Negative (Negative) Urine Glucose (UA) Negative (Negative) Urine Ketones Negative (Negative) Urine Blood Negative (Negative) Urine Nitrite Negative (Negative) Urine Bilirubin Negative (Negative) Urine Urobilinogen <2.0 (<2.0) mg/dL Ur Leukocyte Esterase Negative (Negative) 05/15/22 05/15/22 Range/Units 07:39 08:39 WBC (3.8-10.6) k/uL RBC (4.30-5.90) m/uL Hgb (13.0-17.5) gm/dL Hct (39.0-53.0) % MCV (80.0-100.0) fL MCH (25.0-35.0) pg MCHC (31.0-37.0) g/dL RDW (11.5-15.5) % Plt Count (150-450) k/uL MPV Neutrophils % % Lymphocytes % % Monocytes % % Eosinophils % % Basophils % % Neutrophils # (1.3-7.7) k/uL Lymphocytes # (1.0-4.8) k/uL Monocytes # (0-1.0) k/uL Eosinophils # (0-0.7) k/uL Basophils # (0-0.2) k/uL Sodium 137 (137-145) mmol/L Potassium 4.1 (3.5-5.1) mmol/L Chloride 106 (98-107) mmol/L Carbon Dioxide 25 (22-30) mmol/L Anion Gap 6 mmol/L BUN 15 (9-20) mg/dL Creatinine 1.00 (0.66-1.25) mg/dL Est GFR (CKD-EPI)AfAm 89 (>60 ml/min/1.73 sqM) Est GFR (CKD-EPI)NonAf 77 (>60 ml/min/1.73 sqM) Glucose 138 H (74-99) mg/dL Plasma Lactic Acid Darrick (0.7-2.0) mmol/L Calcium 8.5 (8.4-10.2) mg/dL Total Bilirubin 1.1 (0.2-1.3) mg/dL AST 19 (17-59) U/L ALT 23 (4-49) U/L Alkaline Phosphatase 69 (38-126) U/L Troponin I <0.012 (0.000-0.034) ng/mL Total Protein 6.3 (6.3-8.2) g/dL Albumin 3.9 (3.5-5.0) g/dL Amylase 54 (30-110) U/L Lipase 64 (23-300) U/L Urine Color Urine Appearance (Clear) Urine pH (5.0-8.0) Ur Specific [place] (1.001-1.035) Urine Protein (Negative) Urine Glucose (UA) (Negative) Urine Ketones (Negative) Urine Blood (Negative) Urine Nitrite (Negative) Urine Bilirubin (Negative) Urine Urobilinogen (<2.0) mg/dL Ur Leukocyte Esterase (Negative) - EKG Data -: EKG Interpreted by Me EKG Comments: EKG performed at 6:55 sinus rhythm rate of 80 IA 189 QRS 72 QT/QTC 370/406 Disposition Clinical Impression: Diverticulitis, Abdominal pain Disposition: HOME SELF-CARE Condition: Stable Instructions (If sedation given, give patient instructions): Abdominal Pain (ED) Additional Instructions: Please return to the Emergency Department if symptoms worsen or any other concerns. Prescriptions: Dicyclomine [Bentyl] 20 mg PO TID #30 tablet Ciprofloxacin HCl [Cipro] 500 mg PO Q12HR #20 tablet metroNIDAZOLE [Flagyl] 500 mg PO TID #30 tab Is patient prescribed a controlled substance at d/c from ED?: No Referrals: Kim Weiss MD [Primary Care Provider] - 1-2 days Time of Disposition: 10:01
[2022-05-15 07:56] LABS: Basophils % (A) 0 %; Eosinophils % (A) 0 %; HCT 42.5 % (39.0-53.0); HGB 14.7 gm/dL (13.0-17.5); Lymphocytes # (A) 0.4 k/uL (1.0-4.8); Lymphocytes % (A) 3 %; MCH 30.7 pg (25.0-35.0); MCHC 34.5 g/dL (31.0-37.0); Monocytes # (A) 0.4 k/uL (0-1.0); Monocytes % (A) 3 %; Neutrophils # (A) 11.3 k/uL (1.3-7.7); Neutrophils % (A) 92 %; Platelet Count 177 k/uL (150-450); RBC 4.78 m/uL (4.30-5.90); RDW 13.8 % (11.5-15.5); WBC 12.4 k/uL (3.8-10.6)
[2022-05-15 08:04] LABS: Appearance,Urine Clear (Clear); Bilirubin,Urine Negative (Negative); Blood,Urine Negative (Negative); Color,Urine Yellow; Glucose,Urine (UA) Negative (Negative); Ketones,Urine Negative (Negative); Leukocyte Esterase,Urine Negative (Negative); Nitrite,Urine Negative (Negative); PH, Urine 7.5 (5.0-8.0); Protein,Urine Negative (Negative); Specific Gravity,Urine 1.019 (1.001-1.035); Urobilinogen,Urine <2.0 mg/dL (<2.0)
[2022-05-15 09:08] LABS: Albumin 3.9 g/dL (3.5-5.0); Calcium 8.5 mg/dL (8.4-10.2); Potassium 4.1 mmol/L (3.5-5.1); Total Bilirubin 1.1 mg/dL (0.2-1.3); Total Protein 6.3 g/dL (6.3-8.2)
--- NOTE | 2022-05-15 09:57 | CT ---
EXAMINATION TYPE: CT abdomen pelvis w con CT DLP: 1389.3 mGycm, Automated exposure control for dose reduction was used. DATE OF EXAM: 05/15/2022 9:43 AM COMPARISON: CT abdomen pelvis most recent from 08/09/2021 CLINICAL INDICATION:Male, 67 years old with history of abdominal pain, history of diverticulitis; low er abd pain x2 days TECHNIQUE: Axial CT of the abdomen and pelvis. Sagittal and coronal reformats were created on a [employer] workstation. Contrast used:100 mL of Isovue 300 with IV Contrast, Oral contrast used: without Oral Contrast FINDINGS: LOWER CHEST: Unremarkable ABDOMEN LIVER: Unremarkable GALLBLADDER AND BILE DUCTS: Unremarkable. PANCREAS: Unremarkable. SPLEEN: Unremarkable. ADRENAL GLANDS: Unremarkable. KIDNEYS AND URETERS: No evidence of hydronephrosis or renal calculus. The ureters are unremarkable. PELVIS BLADDER: Unremarkable REPRODUCTIVE: Prostate is enlarged in size measuring 5.3 cm in transverse dimension. Vasectomy clips bilaterally. ABDOMEN & PELVIS STOMACH AND BOWEL: No evidence of bowel obstruction. 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 Appendix is normal. PERITONEUM/RETROPERITONEUM: No evidence of pneumoperitoneum or free fluid. . VASCULATURE: No evidence of aortic aneurysm. MUSCULOSKELETAL: No acute osseous abnormalities LYMPH NODES: No gross evidence for lymphadenopathy. SOFT TISSUE/ABDOMINAL WALL: Right fat containing inguinal hernia. IMPRESSION: 1. No evidence for acute abdominal process. 2. Postsurgical changes of the colon without evidence for obstruction. 3. Colonic diverticulosis without evidence for diverticulitis. 4. Prostatomegaly.
[2022-05-15] MEDS ORDERED: ACET/COD 300 MG/30 MG STARTER PACK 6 TAB BTL PO STA (10:14)
[2022-05-15 10:52] VITALS: BP 110/73; PULSE 87; RESP 20; TEMP 99.5
== END 2022-05-15 10:48 | disposition home or self-care (01) ==
LOC: EC 06:22
DX: K57.30 Diverticulosis of large intestine without perforation or abscess without bleeding (principal); R10.9 Unspecified abdominal pain; J45.909 Unspecified asthma, uncomplicated; E11.9 Type 2 diabetes mellitus without complications; K21.9 Gastro-esophageal reflux disease without esophagitis; E78.5 Hyperlipidemia, unspecified; I10 Essential (primary) hypertension; G47.30 Sleep apnea, unspecified; Z88.0 Allergy status to penicillin; Z79.82 Long term (current) use of aspirin; Z79.899 Other long term (current) drug therapy; Z79.84 Long term (current) use of oral hypoglycemic drugs; Z79.51 Long term (current) use of inhaled steroids
CPT/HCPCS: 36415; 80053; 82150; 83605; 83690; 84484; 85025; 81003; 74177; 99285; 96360; Q9967

== ENCOUNTER → 2022-08-09 | Outpatient (CLI) | payer MEDICAID, MEDICARE, OTHER ==
[2022-08-09 08:12] LABS: Basophils % (A) 0 %; Eosinophils # (A) 0.1 k/uL (0-0.7); Eosinophils % (A) 2 %; HCT 44.3 % (39.0-53.0); HGB 14.5 gm/dL (13.0-17.5); Lymphocytes # (A) 0.8 k/uL (1.0-4.8); Lymphocytes % (A) 16 %; MCH 29.8 pg (25.0-35.0); MCHC 32.8 g/dL (31.0-37.0); MCV 90.7 fL (80.0-100.0); Mean Platelet Volume 8.2; Monocytes # (A) 0.3 k/uL (0-1.0); Monocytes % (A) 6 %; Neutrophils # (A) 3.9 k/uL (1.3-7.7); Neutrophils % (A) 73 %; Platelet Count 219 k/uL (150-450); RBC 4.88 m/uL (4.30-5.90); RDW 13.7 % (11.5-15.5); WBC 5.3 k/uL (3.8-10.6)
[2022-08-09 08:32] LABS: ALT 27 U/L (4-49); AST 23 U/L (17-59); African American GFR (CKD) 83 (>60 ml/min/1.73 sqM); Albumin 3.9 g/dL (3.5-5.0); Albumin/Globulin Ratio 1.7; Alkaline Phosphatase 73 U/L (38-126); Anion Gap 6 mmol/L; Blood Urea Nitrogen 18 mg/dL (9-20); Calcium 9.3 mg/dL (8.4-10.2); Carbon Dioxide 28 mmol/L (22-30); Chloride 105 mmol/L (98-107); Globulin 2.3 g/dL; Glucose 105 mg/dL (74-99); Non-African American GFR(CKD) 72 (>60 ml/min/1.73 sqM); Potassium 4.4 mmol/L (3.5-5.1); Sodium 139 mmol/L (137-145); Total Bilirubin 0.4 mg/dL (0.2-1.3); Total Protein 6.2 g/dL (6.3-8.2)
[2022-08-09 17:05] LABS: % Iron Saturation 11.53 (15.00-50.00); Chol/HDL Ratio 2.81 Ratio; Iron 44 ug/dL (65-175); LDL Cholesterol,Calculated 51.6 mg/dL (0.0-131.0); Total Iron Binding Capacity 378 ug/dL (228-460)
[2022-08-10 09:38] LABS: Ferritin 17.1 ng/mL (22.0-322.0)
== END | disposition home or self-care (01) ==
LOC: LABWHC1 07:07
PROVIDERS: ATTEND Internal Medicine
DX: I10 Essential (primary) hypertension (principal); E78.5 Hyperlipidemia, unspecified; E61.1 Iron deficiency; D64.9 Anemia, unspecified
CPT/HCPCS: 36415; 80053; 80061; 82607; 82728; 83036; 83540; 83550; 84439; 84443; 85025

== ENCOUNTER 2022-09-14 22:47 | Emergency (ER) | payer MEDICAID, MEDICARE, OTHER ==
[2022-09-14 23:08] VITALS: TEMP 97.8
[2022-09-14] MEDS ORDERED: ASPIRIN 81 MG PO STA (23:45)
[2022-09-14] MEDS ORDERED: SODIUM CHLORIDE 0.9% 1,000 ML IV STA (23:45)
[2022-09-15 00:09] LABS: ALT 19 U/L (4-49); AST 21 U/L (17-59); African American GFR (CKD) >90 (>60 ml/min/1.73 sqM); Alkaline Phosphatase 65 U/L (38-126); Anion Gap 12 mmol/L; Blood Urea Nitrogen 19 mg/dL (9-20); Calcium 9.1 mg/dL (8.4-10.2); Carbon Dioxide 22 mmol/L (22-30); Chloride 104 mmol/L (98-107); Glucose 135 mg/dL (74-99); Non-African American GFR(CKD) 81 (>60 ml/min/1.73 sqM); Potassium 3.3 mmol/L (3.5-5.1); Sodium 138 mmol/L (137-145); Total Bilirubin 0.3 mg/dL (0.2-1.3); Total Protein 6.2 g/dL (6.3-8.2)
[2022-09-15 00:12] LABS: Basophils % (A) 0 %; Eosinophils # (A) 0.1 k/uL (0-0.7); Eosinophils % (A) 1 %; HCT 45.9 % (39.0-53.0); Lymphocytes % (A) 13 %; MCH 28.6 pg (25.0-35.0); MCHC 32.6 g/dL (31.0-37.0); MCV 87.8 fL (80.0-100.0); Mean Platelet Volume 8.7; Monocytes # (A) 0.4 k/uL (0-1.0); Monocytes % (A) 5 %; Neutrophils # (A) 6.1 k/uL (1.3-7.7); Neutrophils % (A) 77 %; Partial Thromboplastin Time 27.1 sec (22.0-30.0); Platelet Count 218 k/uL (150-450); Prothrombin Time 10.2 sec (9.0-12.0); RBC 5.23 m/uL (4.30-5.90); WBC 7.9 k/uL (3.8-10.6)
--- NOTE | 2022-09-15 00:27 | ED ---
General Adult HPI - General Chief complaint: Arrhythmia/Palpitations Stated complaint: Heart arrhythmia Time Seen by Provider: 09/14/22 23:29 Source: patient, RN notes reviewed, old records reviewed Mode of arrival: ambulatory - History of Present Illness Initial comments: Patient is a 67-year-old male with past medical history remarkable for hypertension, diabetes, hyperlipidemia, thyroid disorder presents emergency Department complaining of palpitations. States he doesn't really have any symptoms but was checking his pulse and felt like he was skipping a beat. Denied any episodes of diaphoresis, chest pain, shortness of breath, nausea, vomiting, abdominal pain. Has no acute complaints at this time. Does follow up with cardiology. Presents for further evaluation at this time over concern for arrhythmia. Symptoms all started approximately 2 hours prior to arrival. - Related Data Home Medications Medication Instructions Recorded Confirmed Atorvastatin [Lipitor] 10 mg PO HS 02/08/16 10/26/21 Losartan Potassium 50 mg PO QAM 02/08/16 10/26/21 Metoprolol Tartrate [Lopressor] 25 mg PO QAM 02/08/16 10/26/21 hydroCHLOROthiazide [Hydrodiuril] 25 mg PO QAM 02/08/16 10/26/21 Cholecalciferol [Vitamin D3 (25 2,000 unit PO DAILY 03/08/16 10/26/21 Mcg = 1000 Iu)] metFORMIN HCL [Metformin HCl ER] 500 mg PO BID 07/14/16 10/26/21 Aspirin [Adult Low Dose Aspirin EC] 81 mg PO DAILY 09/01/16 10/26/21 Esomeprazole Magnesium [NexIUM] 20 mg PO HS 04/22/19 10/26/21 Budesonide-Formot 160-4.5 Mcg 2 puff INHALATION BID 09/01/21 10/28/21 [Symbicort 160-4.5 Mcg Inhaler] Ascorbic Acid [Vitamin C] 500 mg PO DAILY 10/26/21 10/26/21 Cyanocobalamin (Vitamin B-12) 5,000 mcg PO DAILY 10/26/21 10/26/21 [Vitamin B-12] Ferrous Sulfate [Iron (65 MG 325 mg PO DAILY 10/26/21 10/26/21 Elemental)] Previous Rx's Medication Instructions Recorded Ciprofloxacin HCl [Cipro] 500 mg PO Q12HR #20 tablet 05/15/22 Dicyclomine [Bentyl] 20 mg PO TID #30 tablet 05/15/22 metroNIDAZOLE [Flagyl] 500 mg PO TID #30 tab 05/15/22 Allergies Allergy/AdvReac Type Severity Reaction Status Date / Time Penicillins Allergy Rash/Hives Verified 09/14/22 23:08 Review of Systems ROS Statement: Those systems with pertinent positive or pertinent negative responses have been documented in the HPI. Review of Systems: CONST: Denies fever EYES: Denies blurry vision ENT: Denies nasal congestion C/V: Denies Chest pain RESP: Denies shortness of breath GI: Denies abdominal pain : Denies dysuria SKIN: Denies rash. MSK: Denies joint pain. NEURO: Denies headache ROS Other: All systems not noted in ROS Statement are negative. Past Medical History Past Medical History: Asthma, Blood Disorder, Diabetes Mellitus, GERD/Reflux, Hyperlipidemia, Hypertension, Osteoarthritis (OA), Sleep Apnea/CPAP/BIPAP, Thyroid Disorder Additional Past Medical History / Comment(s): Hx of diverticulitis with Bowel Resection., HX of thyroid nodule, uses C-Pap machine. IRON DEFICIENCY ANEMIA. DARK STOOLS. History of Any Multi-Drug Resistant Organisms: None Reported Date of last positivie culture/infection: 07/14/16 MDRO Source:: STOOL Past Surgical History: Adenoidectomy, Bowel Resection, Hernia Repair, Orthopedic Surgery, Tonsillectomy Additional Past Surgical History / Comment(s): R thyroid lobectomy, vasectomy, cyst removed left leg, ganglion cyst rt hand, L inguinal hernia repair x2, EGD/c olonoscopy ., Hx c-diff 07/2016. Past Anesthesia/Blood Transfusion Reactions: No Reported Reaction Past Psychological History: No Psychological Hx Reported Smoking Status: Never smoker Past Alcohol Use History: None Reported Past Drug Use History: None Reported - Past Family History Mother Family Medical History: Cancer Additional Family Medical History / Comment(s): melanoma Father Family Medical History: Cancer Additional Family Medical History / Comment(s): myelogenous leukemia General Exam - General Exam Comments Initial Comments: General: Appears in no acute distress. HEAD: Normal with no signs of head trauma. EYES: EOMI ENT: Hearing grossly intact, normal oropharynx. RESPIRATORY: Clear breath sounds bilaterally. No wheezes, rales, or rhonchi. C/V: Regular rate and rhythm. S1 and S2 auscultated, no edema, peripheral pulses 2+ and intact throughout ABD: Abd is soft, nontender, nondistended EXT: Normal range of motion, no obvious deformity SKIN: No rashes or lesions observed on exposed skin. NEURO: Alert and oriented 4. 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 sent in by a medical professional or institution (, PA, TECHNOLOGY SOLUTIONS ARCHITECT, urgent care, hospital, or fpc...) When possible be specific @ -No Did you speak to anyone other than the patient for history (EMS, parent, family, police, friend...)? What history was obtained from this source @ -No Did you review nursing and triage notes (agree or disagree)? Why? @ -I reviewed and agree with nursing and triage notes Were old charts reviewed (outside hosp., previous admission, EMS record, old EKG, old radiological studies, urgent care reports/EKG's, fpc records)? Report findings @ -Old EKG reviewed from May 2022 Differential Diagnosis (chest pain, altered mental status, abdominal pain women, abdominal pain men, vaginal bleeding, weakness, fever, dyspnea, syncope, headache, dizziness, GI bleed, back pain, seizure, CVA, palpatations, mental health, musculoskeletal)? @ -PVC, atrial fibrillation, arrhythmia, palpitations, ACS, electrolyte abnormality. This list is not all-inclusive. EKG interpreted by me (3pts min.). @ -As above X-rays interpreted by me (1pt min.). @ -Chest x-ray reveals no obvious acute cardio pulmonary process. CT interpreted by me (1pt min.). @ -None done U/S interpreted by me (1pt. min.). @ -None done What testing was considered but not performed or refused? (CT, X-rays, U/S, labs)? Why? @ -None What meds were considered but not given or refused? Why? @ -None Did you discuss the management of the patient with other professionals (professionals i.e. , PA, TECHNOLOGY SOLUTIONS ARCHITECT, lab, RT, psych nurse, social worker clinical, business ethics professor, teacher, legal officer, welfare case worker)? Give summary @ -No Was smoking cessation discussed for >3mins.? @ -No Was critical care preformed (if so, how long)? @ -No Were there social determinants of health that impacted care today? How? (Homelessness, low income, unemployed, alcoholism, drug addiction, transportation, low edu. Level, literacy, decrease access to med. care, retirement, rehab)? @ -No Was there de-escalation of care discussed even if they declined (Discuss DNR or withdrawal of care, Hospice)? DNR status @ -No What co-morbidities impacted this encounter? (DM, HTN, Smoking, COPD, CAD, Ca ncer, CVA, ARF, Chemo, Hep., AIDS, mental health diagnosis, sleep apnea, morbid obesity)? @ -None Was patient admitted / discharged? Hospital course, mention meds given and route, prescriptions, significant lab abnormalities, going to OR and other pertinent info. @ -Based on the patient's presentation and physical exam, I'm concerned for po ssible arrhythmia for the patient. Screening EKG obtained in triage show PVCs which could be the source of his palpable "skipped beat." We did discuss this but we will obtain a cardiac workup as well as evaluate for any electrolyte abnormalities. He is asymptomatic otherwise. Vital signs within acceptable limits. He was in agreement this plan. EKG shows PVCs but no other acute process. Chest x-ray unremarkable. Labs remarkable for a hypokalemia at 3.3 which will be replenished. Magnesium within acceptable limits. Troponin undetectable. TSH minimally elevated. On reevaluation following repeat EKG, exacerbation is still having occasional PVCs but no other obvious changes. He remains asymptomatic. We did discuss his workup. We will treat his hypokalemia with a dose of potassium orally. I do not believe he requires admission at this time and he was in agreement. Strict return precautions discussed. He is to follow-up with his PCP or court of appeals judge for further monitoring of his symptoms as well as his low potassium. He was in agreement this plan. I instructed the patient to follow up with their PCP in the next 1-3 days. I explained that the patient should return to the emergency department if they experience any worsening symptoms. Strict return precautions were discussed with the patient. The patient expressed understanding of these instructions. I answered all questions that the patient had. The patient was discharged home in good condition with their prescriptions and follow up information. Undiagnosed new problem with uncertain prognosis? @ -No Drug Therapy requiring intensive monitoring for toxicity (Heparin, Nitro, Insulin, Cardizem)? @ -No Were any procedures done? @ -No Diagnosis/symptom? @ -PVC, hypokalemia Acute, or Chronic, or Acute on Chronic? @ -Acute Uncomplicated (without systemic symptoms) or Complicated (systemic symptoms)? @ -Uncomplicated Side effects of treatment? @ -none Exacerbation, Progression, or Severe Exacerbation] @ -no Poses a threat to life or bodily function? @ -no - Lab Data Result diagrams: 09/14/22 23:47 09/14/22 23:47 Lab Results 09/14/22 09/14/22 09/14/22 Range/Units 23:47 23:47 23:47 WBC 7.9 (3.8-10.6) k/uL RBC 5.23 (4.30-5.90) m/uL Hgb 15.0 (13.0-17.5) gm/dL Hct 45.9 (39.0-53.0) % MCV 87.8 (80.0-100.0) fL MCH 28.6 (25.0-35.0) pg MCHC 32.6 (31.0-37.0) g/dL RDW 14.0 (11.5-15.5) % Plt Count 218 (150-450) k/uL MPV 8.7 Neutrophils % 77 % Lymphocytes % 13 % Monocytes % 5 % Eosinophils % 1 % Basophils % 0 % Neutrophils # 6.1 (1.3-7.7) k/uL Lymphocytes # 1.0 (1.0-4.8) k/uL Monocytes # 0.4 (0-1.0) k/uL Eosinophils # 0.1 (0-0.7) k/uL Basophils # 0.0 (0-0.2) k/uL PT 10.2 (9.0-12.0) sec INR 1.0 (<1.2) APTT 27.1 (22.0-30.0) sec Sodium 138 (137-145) mmol/L Potassium 3.3 L (3.5-5.1) mmol/L Chloride 104 (98-107) mmol/L Carbon Dioxide 22 (22-30) mmol/L Anion Gap 12 mmol/L BUN 19 (9-20) mg/dL Creatinine 0.97 (0.66-1.25) mg/dL Est GFR (CKD-EPI)AfAm >90 (>60 ml/min/1.73 sqM) Est GFR (CKD-EPI)NonAf 81 (>60 ml/min/1.73 sqM) Glucose 135 H (74-99) mg/dL Calcium 9.1 (8.4-10.2) mg/dL Magnesium 2.0 (1.6-2.3) mg/dL Total Bilirubin 0.3 (0.2-1.3) mg/dL AST 21 (17-59) U/L ALT 19 (4-49) U/L Alkaline Phosphatase 65 (38-126) U/L Troponin I (0.000-0.034) ng/mL Total Protein 6.2 L (6.3-8.2) g/dL Albumin 4.0 (3.5-5.0) g/dL TSH 4.780 H (0.465-4.680) mIU/L 09/14/22 Range/Units 23:47 WBC (3.8-10.6) k/uL RBC (4.30-5.90) m/uL Hgb (13.0-17.5) gm/dL Hct (39.0-53.0) % MCV (80.0-100.0) fL MCH (25.0-35.0) pg MCHC (31.0-37.0) g/dL RDW (11.5-15.5) % Plt Count (150-450) k/uL MPV Neutrophils % % Lymphocytes % % Monocytes % % Eosinophils % % Basophils % % Neutrophils # (1.3-7.7) k/uL Lymphocytes # (1.0-4.8) k/uL Monocytes # (0-1.0) k/uL Eosinophils # (0-0.7) k/uL Basophils # (0-0.2) k/uL PT (9.0-12.0) sec INR (<1.2) APTT (22.0-30.0) sec Sodium (137-145) mmol/L Potassium (3.5-5.1) mmol/L Chloride (98-107) mmol/L Carbon Dioxide (22-30) mmol/L Anion Gap mmol/L BUN (9-20) mg/dL Creatinine (0.66-1.25) mg/dL Est GFR (CKD-EPI)AfAm (>60 ml/min/1.73 sqM) Est GFR (CKD-EPI)NonAf (>60 ml/min/1.73 sqM) Glucose (74-99) mg/dL Calcium (8.4-10.2) mg/dL Magnesium (1.6-2.3) mg/dL Total Bilirubin (0.2-1.3) mg/dL AST (17-59) U/L ALT (4-49) U/L Alkaline Phosphatase (38-126) U/L Troponin I <0.012 (0.000-0.034) ng/mL Total Protein (6.3-8.2) g/dL Albumin (3.5-5.0) g/dL TSH (0.465-4.680) mIU/L - EKG Data -: EKG Interpreted by Me EKG Comments: 12-lead Electrocardiogram Interpretation Note EKG was reviewed and interpreted by myself. 12-lead ECG performed at 2305 is interpreted by me as revealing normal sinus rhythm with PVCs at a rate of 82 beats per minute. [place] is normal. CT interval is 206 ms, QRS duration is 99 ms, QTc is 414 ms.. There were no ST or T wave abnormalities to suggest myocardial ischemia or injury. R wave progression across the precordium was satisfactory. By my interpretation this EKG is non-diagnostic for acute ischemia. When compared with EKG from May 2022, no significant change except for the occasional PVCs. 12-lead Electrocardiogram Interpretation Note EKG was reviewed and interpreted by myself. 12-lead ECG performed at 0053 is interpreted by me as revealing normal sinus rhythm with first-degree AV block and occasional PVCs at a rate of 79 beats per minute. [place] is normal. CT interval is 212 ms, QRS duration is 105 ms, QTc is 446 ms.. There were no ST or T wave abnormalities to suggest myocardial ischemia or injury. R wave progression across the precordium was satisfactory. By my interpretation this EKG is non-diagnostic for acute ischemia. No change from prior EKG.. Disposition Clinical Impression: PVC (premature ventricular contraction), Hypokalemia Disposition: HOME SELF-CARE Condition: Good Instructions (If sedation given, give patient instructions): Premature Ventricular Contractions (ED) Is patient prescribed a controlled substance at d/c from ED?: No Referrals: Kim Weiss MD [Primary Care Provider] - 1-2 days Time of Disposition: 01:03
[2022-09-15 00:56] VITALS: BP 121/78; PULSE 82; RESP 16
--- NOTE | 2022-09-15 00:57 | XR ---
EXAM: XR Chest, 2 Views CLINICAL HISTORY: dysrhythmia TECHNIQUE: Frontal and lateral views of the chest. COMPARISON: 02/15/2017 FINDINGS: Lungs: Subtle curvilinear changes in the right infrahilar region, new from the previous examination but not definitively noted in the lateral projection. Probable subcentimeter calcified granuloma in the right suprahilar region. The pulmonary vasculature is unremarkable. Pleural space: Unremarkable. No pneumothorax. No large pleural effusion. Heart: The cardiac silhouette is stable and within normal limits. Mediastinum: The mediastinal contours are stable. The trachea is midline. Bones/joints: Unremarkable. IMPRESSION: Subtle curvilinear changes in the right infrahilar region, new from the previous examination but not definitively noted in the lateral projection. Differential consideration includes transient subsegmental atelectasis versus confluence of vascular structures. No focal airspace consolidation. No pleural effusion or pneumothorax.
[2022-09-15] MEDS ORDERED: POTASSIUM CHLORIDE ER 20 MEQ TAB.ER PO STA (01:09)
== END 2022-09-15 01:20 | disposition home or self-care (01) ==
LOC: EC 22:47
DX: I49.3 Ventricular premature depolarization (principal); E87.6 Hypokalemia; J45.909 Unspecified asthma, uncomplicated; E11.9 Type 2 diabetes mellitus without complications; K21.9 Gastro-esophageal reflux disease without esophagitis; E78.5 Hyperlipidemia, unspecified; I10 Essential (primary) hypertension; M19.90 Unspecified osteoarthritis, unspecified site; G47.30 Sleep apnea, unspecified; Z79.1 Long term (current) use of non-steroidal anti-inflammatories (NSAID); Z79.82 Long term (current) use of aspirin; Z79.899 Other long term (current) drug therapy; Z79.84 Long term (current) use of oral hypoglycemic drugs; Z79.51 Long term (current) use of inhaled steroids; Z88.0 Allergy status to penicillin
CPT/HCPCS: 36415; 71046; 80053; 83735; 84443; 84484; 85025; 85610; 85730; 93005; 96360; 99285

== ENCOUNTER → 2022-10-04 | Outpatient (CLI) | payer MEDICAID, MEDICARE, OTHER ==
[2022-10-04 15:34] LABS: African American GFR (CKD) 70.9 (60.0-200.0); Anion Gap 15.4 mmol/L (10.00-18.00); BUN/Creat Ratio 13.8 Ratio (12.00-20.00); Blood Urea Nitrogen 16.7 mg/dL (9.0-27.0); Calcium 9.3 mg/dL (8.7-10.3); Carbon Dioxide 23.9 mmol/L (20.0-27.5); Non-African American GFR(CKD) 61.1 (60.0-200.0); Potassium 4.2 mmol/L (3.5-5.5); T4, Free (Free Thyroxine) 1.22 ng/dL (0.800-1.800)
== END | disposition home or self-care (01) ==
LOC: LABWHC1 08:50
PROVIDERS: ATTEND Internal Medicine Interventional Cardiology
DX: I10 Essential (primary) hypertension (principal); E11.9 Type 2 diabetes mellitus without complications
CPT/HCPCS: 36415; 80048; 84439; 84443

== ENCOUNTER → 2022-11-13 | Outpatient (CLI) | payer MEDICAID, MEDICARE, OTHER ==
[2022-11-13 11:27] LABS: Prostate Specific Antigen 1.6 ng/mL (0.00-4.50)
== END | disposition home or self-care (01) ==
LOC: LABWHC1 07:10
PROVIDERS: ATTEND Urology
DX: N40.1 Benign prostatic hyperplasia with lower urinary tract symptoms (principal); R68.82 Decreased libido
CPT/HCPCS: 36415; 84153; 84402; 84403

== ENCOUNTER 2022-12-25 10:07 | Emergency (ER) | payer MEDICAID, MEDICARE, OTHER ==
[2022-12-25 10:37] VITALS: TEMP 97.9
[2022-12-25] MEDS ORDERED: SODIUM CHLORIDE 0.9% 1,000 ML IV ONE (11:31)
--- NOTE | 2022-12-25 11:48 | ED ---
General Adult HPI - General Chief complaint: Abdominal Pain Stated complaint: Diverticulitis Time Seen by Provider: 12/25/22 11:03 Source: patient, RN notes reviewed Mode of arrival: ambulatory Limitations: no limitations - History of Present Illness Initial comments: 67-year-old male past medical history significant for diverticulosis presents to the emergency department with a chief complaint of abdominal pain. He reports left lower quadrant abdominal pain that is constant for the last 2 weeks. He has primary care regarding this who gave him a round of ciprofloxacin. He finished the course of antibiotics 12/22/2022. He reports no improvement of symptoms. He reports feeling mildly nauseous however no vomiting. Last bowel movement was this morning and normal for him. He denies any fever, chills, shortness of breath, melena, hematochezia. He reports having a history of a bowel resection done. Most recent colonoscopy was last year. - Related Data Home Medications Medication Instructions Recorded Confirmed Atorvastatin [Lipitor] 10 mg PO HS 02/08/16 10/26/21 Losartan Potassium 50 mg PO QAM 02/08/16 10/26/21 Metoprolol Tartrate [Lopressor] 25 mg PO QAM 02/08/16 10/26/21 hydroCHLOROthiazide [Hydrodiuril] 25 mg PO QAM 02/08/16 10/26/21 Cholecalciferol [Vitamin D3 (25 2,000 unit PO DAILY 03/08/16 10/26/21 Mcg = 1000 Iu)] metFORMIN HCL [Metformin HCl ER] 500 mg PO BID 07/14/16 10/26/21 Aspirin [Adult Low Dose Aspirin EC] 81 mg PO DAILY 09/01/16 10/26/21 Esomeprazole Magnesium [NexIUM] 20 mg PO HS 04/22/19 10/26/21 Budesonide-Formot 160-4.5 Mcg 2 puff INHALATION BID 09/01/21 10/28/21 [Symbicort 160-4.5 Mcg Inhaler] Ascorbic Acid [Vitamin C] 500 mg PO DAILY 10/26/21 10/26/21 Cyanocobalamin (Vitamin B-12) 5,000 mcg PO DAILY 10/26/21 10/26/21 [Vitamin B-12] Ferrous Sulfate [Iron (65 MG 325 mg PO DAILY 10/26/21 10/26/21 Elemental)] Previous Rx's Medication Instructions Recorded Ciprofloxacin HCl [Cipro] 500 mg PO Q12HR #20 tablet 05/15/22 Dicyclomine [Bentyl] 20 mg PO TID #30 tablet 05/15/22 metroNIDAZOLE [Flagyl] 500 mg PO TID #30 tab 05/15/22 metroNIDAZOLE [Flagyl] 500 mg PO TID #30 tab 12/25/22 Allergies Allergy/AdvReac Type Severity Reaction Status Date / Time Penicillins Allergy Rash/Hives Verified 12/25/22 10:37 Review of Systems ROS Statement: Those systems with pertinent positive or pertinent negative responses have been documented in the HPI. ROS Other: All systems not noted in ROS Statement are negative. Past Medical History Past Medical History: Asthma, Blood Disorder, Diabetes Mellitus, GERD/Reflux, Hyperlipidemia, Hypertension, Osteoarthritis (OA), Sleep Apnea/CPAP/BIPAP, Thyroid Disorder Additional Past Medical History / Comment(s): Hx of diverticulitis with Bowel Resection., HX of thyroid nodule, uses C-Pap machine. IRON DEFICIENCY ANEMIA. DARK STOOLS. History of Any Multi-Drug Resistant Organisms: None Reported Date of last positivie culture/infection: 07/14/16 MDRO Source:: STOOL Past Surgical History: Adenoidectomy, Bowel Resection, Hernia Repair, Orthopedic Surgery, Tonsillectomy Additional Past Surgical History / Comment(s): R thyroid lobectomy, vasectomy, cyst removed left leg, ganglion cyst rt hand, L inguinal hernia repair x2, EGD/colonoscopy ., Hx c-diff 07/2016. Past Anesthesia/Blood Transfusion Reactions: No Reported Reaction Past Psychological History: No Psychological Hx Reported Smoking Status: Never smoker Past Alcohol Use History: Occasional Past Drug Use History: None Reported - Past Family History Mother Family Medical History: Cancer Additional Family Medical History / Comment(s): melanoma Father Family Medical History: Cancer Additional Family Medical History / Comment(s): myelogenous leukemia General Exam - General Exam Comments Initial Comments: General: Alert, in no acute distress Head: atraumatic normocephalic. Eyes PERRL, EOMI intact, mucous membranes moist Respiratory: Lungs clear to auscultation bilaterally Cardiovascular: Rate regular and rhythm Abdominal: Soft without guarding or rebound, left lower quadrant tenderness Extremities: Normal inspection with full range of motion and normal capillary refill Neuroogic: alert and oriented 3, CN II-XII intact, able to ambulate with steady gait Skin: warm dry and intact with normal color Limitations: no limitations Course Vital Signs 12/25/22 12/25/22 12/25/22 10:33 11:18 14:15 Temperature 97.9 F Pulse Rate 75 69 61 Respiratory 18 16 18 Rate Blood Pressure 102/64 121/73 122/75 O2 Sat by Pulse 96 96 Oximetry Medical Decision Making - Medical Decision Making Was pt. sent in by a medical professional or institution (, [facility], [employer], urgent care, hospital, or halfway...) When possible be specific @ -[No] Did you speak to anyone other than the patient for history (EMS, parent, family, police, friend...)? What history was obtained from this source @ -Patient Did you review nursing and triage notes (agree or disagree)? Why? @ -[I reviewed and agree with nursing and triage notes] Were old charts reviewed (outside hosp., previous admission, EMS record, old EKG, old radiological studies, urgent care reports/EKG's, halfway records)? Report findings @ -[No old charts were reviewed] Differential Diagnosis (chest pain, altered mental status, abdominal pain women, abdominal pain men, vaginal bleeding, weakness, fever, dyspnea, syncope, headache, dizziness, GI bleed, back pain, seizure, CVA, palpatations, mental health, musculoskeletal)? @ -[not applicable] EKG interpreted by me (3pts min.). @ -[As above] X-rays interpreted by me (1pt min.). @ -[None done] CT interpreted by me (1pt min.). @ -CT abdomen and pelvis reveals partial sigmoid resection with the end-to-side anastomosis there is generalized colonic diverticulosis possibly mild early acute diverticulitis along the mid sigmoid colon No abscess or free air there are prominent fluid-filled small bowel loops throughout the mid to lower abdomen and pelvis U/S interpreted by me (1pt. min.). @ -[None done] What testing was considered but not performed or refused? (CT, X-rays, U/S, labs)? Why? @ -[None] What meds were considered but not given or refused? Why? @ -[None] Did you discuss the management of the patient with other professionals (prof essionals i.e. , JENNIFER, [employer] WORK[employer], lab, RT, psych nurse, social media intern, intellectual property lawyer, teacher, licensed mortgage loan officer, dependency case manager)? Give summary @ -[No] Was smoking cessation discussed for >3mins.? @ -[No] Was critical care preformed (if so, how long)? @ -[No] Were there social determinants of health that impacted care today? How? (Homelessness, low income, unemployed, alcoholism, drug addiction, trans portation, low edu. Level, literacy, decrease access to med. care, fpc, rehab)? @ -[No] Was there de-escalation of care discussed even if they declined (Discuss DNR or withdrawal of care, Hospice)? DNR status @ -[No] What co-morbidities impacted this encounter? (DM, HTN, Smoking, COPD, CAD, Cancer, CVA, ARF, Chemo, Hep., AIDS, mental health diagnosis, sleep apnea, morbid obesity)? @ -[None] Was patient admitted / discharged? Hospital course, mention meds given and route, prescriptions, significant lab abnormalities, going to OR and other pertinent info. @ --Discharged. This is a pleasant 67-year-old male who presents the emergency department with abdominal pain. Patient had a thorough history and physical exam performed on the ED. Physical exam is essentially unremarkable. Heart rate regular rate and rhythm, lungs clear to auscultation bilaterally, abdomen is soft with mild tenderness. Patient had extensive laboratory and imaging workup which is essentially unremarkable. Had 2 troponin results drawn which were both negative I discussed results in detail with the patient who verbalized understanding. Patient was given 1L IV fluids with symptomatic relief on the emergency department. He was provided Flagyll prescriptions. Patient discharged in stable condition. Return precautions were discussed at length. Case discussed with AVI Nole who agrees with plan of care Undiagnosed new problem with uncertain prognosis? @ -[No] Drug Therapy requiring intensive monitoring for toxicity (Heparin, Nitro, Insulin, Cardizem)? @ -[No] Were any procedures done? @ -[No] Diagnosis/symptom? @ -Diverticulitis - Abdominal Pain Acute, or Chronic, or Acute on Chronic? @ -Acute Uncomplicated (without systemic symptoms) or Complicated (systemic symptoms)? @ -Uncomplicated Side effects of treatment? @ -[No] Exacerbation, Progression, or Severe Exacerbation? @ -[No] Poses a threat to life or bodily function? How? (Chest pain, [place], [place], pneumonia, PE, COPD, DKA, ARF, appy, cholecystitis, CVA, Diverticulitis, Homicidal, Suicidal, threat to staff... and all critical care pts) @ -Low Likelihood - Lab Data Result diagrams: 12/25/22 11:37 12/25/22 11:37 Lab Results 12/25/22 12/25/22 12/25/22 Range/Units 11:37 11:37 11:37 WBC 7.5 (3.8-10.6) k/uL RBC 4.80 (4.30-5.90) m/uL Hgb 14.5 (13.0-17.5) gm/dL Hct 43.1 (39.0-53.0) % MCV 89.9 (80.0-100.0) fL MCH 30.3 (25.0-35.0) pg MCHC 33.7 (31.0-37.0) g/dL RDW 14.5 (11.5-15.5) % Plt Count 189 (150-450) k/uL MPV 8.4 Neutrophils % 81 % Lymphocytes % 10 % Monocytes % 5 % Eosinophils % 2 % Basophils % 0 % Neutrophils # 6.1 (1.3-7.7) k/uL Lymphocytes # 0.8 L (1.0-4.8) k/uL Monocytes # 0.4 (0-1.0) k/uL Eosinophils # 0.2 (0-0.7) k/uL Basophils # 0.0 (0-0.2) k/uL Sodium 138 (137-145) mmol/L Potassium 3.7 (3.5-5.1) mmol/L Chloride 105 (98-107) mmol/L Carbon Dioxide 25 (22-30) mmol/L Anion Gap 8 mmol/L BUN 20 (9-20) mg/dL Creatinine 1.16 (0.66-1.25) mg/dL Est GFR (CKD-EPI)AfAm 75 (>60 ml/min/1.73 sqM) Est GFR (CKD-EPI)NonAf 65 (>60 ml/min/1.73 sqM) Glucose 104 H (74-99) mg/dL Lactic Ac Sepsis Rflx Plasma Lactic Acid Darrick 2.1 H* (0.7-2.0) mmol/L Calcium 8.7 (8.4-10.2) mg/dL Total Bilirubin 0.7 (0.2-1.3) mg/dL AST 21 (17-59) U/L ALT 19 (4-49) U/L Alkaline Phosphatase 53 (38-126) U/L Total Protein 5.9 L (6.3-8.2) g/dL Albumin 3.6 (3.5-5.0) g/dL 12/25/22 Range/Units 12:33 WBC (3.8-10.6) k/uL RBC (4.30-5.90) m/uL Hgb (13.0-17.5) gm/dL Hct (39.0-53.0) % MCV (80.0-100.0) fL MCH (25.0-35.0) pg MCHC (31.0-37.0) g/dL RDW (11.5-15.5) % Plt Count (150-450) k/uL MPV Neutrophils % % Lymphocytes % % Monocytes % % Eosinophils % % Basophils % % Neutrophils # (1.3-7.7) k/uL Lymphocytes # (1.0-4.8) k/uL Monocytes # (0-1.0) k/uL Eosinophils # (0-0.7) k/uL Basophils # (0-0.2) k/uL Sodium (137-145) mmol/L Potassium (3.5-5.1) mmol/L Chloride (98-107) mmol/L Carbon Dioxide (22-30) mmol/L Anion Gap mmol/L BUN (9-20) mg/dL Creatinine (0.66-1.25) mg/dL Est GFR (CKD-EPI)AfAm (>60 ml/min/1.73 sqM) Est GFR (CKD-EPI)NonAf (>60 ml/min/1.73 sqM) Glucose (74-99) mg/dL Lactic Ac Sepsis Rflx Y Plasma Lactic Acid Darrick (0.7-2.0) mmol/L Calcium (8.4-10.2) mg/dL Total Bilirubin (0.2-1.3) mg/dL AST (17-59) U/L ALT (4-49) U/L Alkaline Phosphatase (38-126) U/L Total Protein (6.3-8.2) g/dL Albumin (3.5-5.0) g/dL Disposition Clinical Impression: Abdominal pain, Diverticulitis Disposition: HOME SELF-CARE Condition: Stable Additional Instructions: Please take Flagyl as prescribed Avoid alcohol use while taking this antibiotic Please return to the nearest emergency department if fever, bloody diarrhea develop Prescriptions: metroNIDAZOLE [Flagyl] 500 mg PO TID #30 tab Is patient prescribed a controlled substance at d/c from ED?: No Referrals: Kim Weiss MD [Primary Care Provider] - 1-2 days Time of Disposition: 13:50
[2022-12-25 12:01] LABS: Basophils % (A) 0 %; Eosinophils # (A) 0.2 k/uL (0-0.7); Eosinophils % (A) 2 %; HCT 43.1 % (39.0-53.0); HGB 14.5 gm/dL (13.0-17.5); Lymphocytes # (A) 0.8 k/uL (1.0-4.8); Lymphocytes % (A) 10 %; MCH 30.3 pg (25.0-35.0); MCHC 33.7 g/dL (31.0-37.0); MCV 89.9 fL (80.0-100.0); Mean Platelet Volume 8.4; Monocytes # (A) 0.4 k/uL (0-1.0); Monocytes % (A) 5 %; Neutrophils # (A) 6.1 k/uL (1.3-7.7); Neutrophils % (A) 81 %; Platelet Count 189 k/uL (150-450); RDW 14.5 % (11.5-15.5); WBC 7.5 k/uL (3.8-10.6)
[2022-12-25 12:24] LABS: ALT 19 U/L (4-49); AST 21 U/L (17-59); African American GFR (CKD) 75 (>60 ml/min/1.73 sqM); Albumin 3.6 g/dL (3.5-5.0); Alkaline Phosphatase 53 U/L (38-126); Anion Gap 8 mmol/L; Blood Urea Nitrogen 20 mg/dL (9-20); Calcium 8.7 mg/dL (8.4-10.2); Carbon Dioxide 25 mmol/L (22-30); Chloride 105 mmol/L (98-107); Glucose 104 mg/dL (74-99); Non-African American GFR(CKD) 65 (>60 ml/min/1.73 sqM); Potassium 3.7 mmol/L (3.5-5.1); Sodium 138 mmol/L (137-145); Total Bilirubin 0.7 mg/dL (0.2-1.3); Total Protein 5.9 g/dL (6.3-8.2)
--- NOTE | 2022-12-25 13:04 | CT ---
EXAMINATION TYPE: CT abdomen pelvis w con DATE OF EXAM: 12/25/2022 COMPARISON: 05/15/2022 HISTORY: 67-year-old male with left lower quadrant abdominal pain TECHNIQUE: Contiguous axial scanning of the abdomen and pelvis following administration of 100 ml Iso arnulfo 300 IV contrast. Delayed images through the kidneys and coronal/sagittal reconstructions perform ed. CT DLP: 1395.5 mGycm Automated exposure control for dose reduction was used. FINDINGS: Heart normal size without pericardial effusion. Strandy dependent atelectasis is present without pleu ral effusion. Small hiatal hernia. No focal liver lesion or biliary ductal dilatation. Portal venous system is patent. Gallbladder, right adrenal gland, kidneys, spleen, and pancreas within normal limits. 1.2 cm nodularity left adrenal gland may be slightly more pronounced from 1 cm previously. Consider 6 -12 month follow-up to reassess. No dilated small bowel, free fluid, free air. Clustered mildly enlarged mid abdominal mesenteric lymp h nodes measuring up to 1.2 cm are unchanged, likely reactive/post inflammatory. Prominent fluid-filled small bowel loops throughout the mid to lower abdomen. Normal appendix. Genera lized colonic diverticulosis. There is some focal wall thickening along thee mid sigmoid colon, axial image 63 that could represent mild early inflammation. There is post surgical change of previous partial sigmoid resection with end to side anastomosis. Bladder partially distended. Prostate gland enlargement 5.5 cm wide. No abnormal fluid collection in the pelvis or pelvic lymphadenopathy. There is a high riding right testicle. Bilateral vasectomy clips. Facet arthropathy mid to lower lumbar spine especially towards the right. IMPRESSION: 1. PREVIOUS PARTIAL SIGMOID RESECTION WITH END TO SIDE ANASTOMOSIS. THERE IS GENERALIZED COLONIC DIVE RTICULOSIS. POSSIBLE MILD, EARLY ACUTE DIVERTICULITIS ALONG THE MID SIGMOID COLON. NO ABSCESS OR FREE AIR. 2. IN ADDITION, THERE ARE PROMINENT FLUID-FILLED SMALL BOWEL LOOPS THROUGHOUT THE MID TO LOWER ABDOME N AND PELVIS. CONSIDER ENTERITIS OR SECONDARY ILEUS. 3. A 1.2 CM NODULE OF THE LEFT ADRENAL GLAND MAY BE SLIGHTLY MORE PRONOUNCED FROM 1.0 CM, PREVIOUSLY. 6-12 MONTH FOLLOW-UP CT TO REASSESS. STATISTICALLY, PROBABLY REPRESENTS A BENIGN ADRENAL ADENOMA. 4. SMALL HIATAL HERNIA. PROSTATOMEGALY AT 5.5 CM WIDE.
[2022-12-25 14:17] VITALS: BP 122/75; PULSE 61; RESP 18
== END 2022-12-25 14:19 | disposition home or self-care (01) ==
LOC: EC 10:07
DX: K57.32 Diverticulitis of large intestine without perforation or abscess without bleeding (principal); J45.909 Unspecified asthma, uncomplicated; E11.9 Type 2 diabetes mellitus without complications; E78.5 Hyperlipidemia, unspecified; I10 Essential (primary) hypertension; K21.9 Gastro-esophageal reflux disease without esophagitis; M19.90 Unspecified osteoarthritis, unspecified site; Z88.0 Allergy status to penicillin; Z79.82 Long term (current) use of aspirin; Z79.51 Long term (current) use of inhaled steroids; Z79.84 Long term (current) use of oral hypoglycemic drugs; Z79.899 Other long term (current) drug therapy
CPT/HCPCS: 99284; 96360; 36415; 80053; 83605; 85025; 74177; Q9967

== ENCOUNTER → 2023-01-15 | Outpatient (CLI) | payer MEDICAID, MEDICARE, OTHER ==
[2023-01-15 14:02] LABS: African American GFR (CKD) 73 (>60 ml/min/1.73 sqM); Blood Urea Nitrogen 17 mg/dL (9-20); Non-African American GFR(CKD) 63 (>60 ml/min/1.73 sqM)
--- NOTE | 2023-01-15 15:17 | CT ---
EXAMINATION TYPE: CT abdomen pelvis w con CT DLP: 1569 mGycm, Automated exposure control for dose reduction was used. DATE OF EXAM: 01/15/2023 2:55 PM COMPARISON: CT abdomen pelvis most recent from 12/25/2022 . CLINICAL INDICATION:Male, 68 years old with history of K57.12 DVTRCLI OF SM INT W/O PERFORATION OR AB SCESS; diverticulitis TECHNIQUE: Standard CT of the abdomen and pelvis following the administration of 100 cc of Isovue 3 00 IV contrast material and oral contrast. Coronal and sagittal reformats were performed. FINDINGS: LOWER CHEST: Posterior dependent subsegmental atelectasis is noted. ABDOMEN LIVER: Unremarkable GALLBLADDER AND BILE DUCTS: Unremarkable. PANCREAS: Unremarkable. SPLEEN: Unremarkable. ADRENAL GLANDS: Stable left adrenal gland 1.2 cm nodule dating back to 2021 and considered benign. KIDNEYS AND URETERS: No evidence of hydronephrosis or renal calculus. The kidneys enhance symmetrical ly. Subcentimeter left renal cortical cyst. PELVIS BLADDER: Unremarkable REPRODUCTIVE: Prostate is enlarged in size measuring 5.1 cm in transverse dimension. Slightly high ri ding right testicle with bilateral vasectomy clips again. ABDOMEN & PELVIS STOMACH AND BOWEL: Small hiatal hernia, duodenum is unremarkable. Enteric contrast reaches the mid sm all bowel. Distal colonic diverticulosis with postsurgical changes with end to side anastomosis from partial sigmoid resection. No evidence for pericolonic abscess. No evidence of bowel obstruction. PERITONEUM: No evidence of pneumoperitoneum or free fluid. Surgical clips within the mesentery. VASCULATURE: No evidence of aortic aneurysm. MUSCULOSKELETAL: No acute osseous abnormalities. Mild disc degeneration changes are present throughou t the thoracolumbar spine. LYMPH NODES: No gross evidence for lymphadenopathy. SOFT TISSUE/ABDOMINAL WALL: Tiny fat filled umbilical hernia. IMPRESSION: Postsurgical changes from partial sigmoid resection with appendicitis anastomosis. Resolution of prev ious CT demonstrating surrounding inflammatory changes. No pericolonic abscess.
== END | disposition home or self-care (01) ==
LOC: RADCTMAIN 12:29
PROVIDERS: ATTEND Internal Medicine Infectious Disease
DX: K57.12 Diverticulitis of small intestine without perforation or abscess without bleeding (principal); K57.32 Diverticulitis of large intestine without perforation or abscess without bleeding
CPT/HCPCS: 82565; 84520; 74177; 36415; Q9967

== ENCOUNTER → 2023-02-08 | Outpatient (CLI) | payer MEDICARE, OTHER | END | disposition home or self-care (01) | LOC: LABWHC1 08:05 | PROVIDERS: ATTEND Surgery | DX: K57.92 Diverticulitis of intestine, part unspecified, without perforation or abscess without bleeding (principal) | CPT/HCPCS: 87045; 87046; 87324 ==

== ENCOUNTER 2023-02-11 11:00 | Emergency (ER) | payer MEDICARE, OTHER, MEDICAID ==
[2023-02-11] MEDS ORDERED: KETOROLAC 15 MG/ML 1 ML VIAL IM STA (11:23)
--- NOTE | 2023-02-11 11:33 | ED ---
Back Pain HPI - General Chief Complaint: Back Pain/Injury Stated Complaint: Back Pain Time Seen by Provider: 02/11/23 11:12 Source: patient, RN notes reviewed Limitations: no limitations - History of Present Illness Initial Comments: 68-year-old male with no significant past medical history presents the emergency department with chief complaint of acute low back pain. Patient reports he was moving a bed on 02/08/2023. She reports worsening low back pain ever since. It eventually improved on Sunday and Sunday however this morning he woke up with worsening pain. He's been taking Tylenol Extra Strength and applying Lidoderm patches without symptomatic improvement. He denies any fevers, saddle paresthesia, loss of bowel or bladder function. He does feel lik e his legs are weak. He denies any previous injury. - Related Data Home Medications Medication Instructions Recorded Confirmed Atorvastatin [Lipitor] 10 mg PO HS 02/08/16 10/26/21 Losartan Potassium 50 mg PO QAM 02/08/16 10/26/21 Metoprolol Tartrate [Lopressor] 25 mg PO QAM 02/08/16 10/26/21 hydroCHLOROthiazide [Hydrodiuril] 25 mg PO QAM 02/08/16 10/26/21 Cholecalciferol [Vitamin D3 (25 2,000 unit PO DAILY 03/08/16 10/26/21 Mcg = 1000 Iu)] metFORMIN HCL [Metformin HCl ER] 500 mg PO BID 07/14/16 10/26/21 Aspirin [Adult Low Dose Aspirin EC] 81 mg PO DAILY 09/01/16 10/26/21 Esomeprazole Magnesium [NexIUM] 20 mg PO HS 04/22/19 10/26/21 Budesonide-Formot 160-4.5 Mcg 2 puff INHALATION BID 09/01/21 10/28/21 [Symbicort 160-4.5 Mcg Inhaler] Ascorbic Acid [Vitamin C] 500 mg PO DAILY 10/26/21 10/26/21 Cyanocobalamin (Vitamin B-12) 5,000 mcg PO DAILY 10/26/21 10/26/21 [Vitamin B-12] Ferrous Sulfate [Iron (65 MG 325 mg PO DAILY 10/26/21 10/26/21 Elemental)] Previous Rx's Medication Instructions Recorded Ciprofloxacin HCl [Cipro] 500 mg PO Q12HR #20 tablet 05/15/22 Dicyclomine [Bentyl] 20 mg PO TID #30 tablet 05/15/22 metroNIDAZOLE [Flagyl] 500 mg PO TID #30 tab 05/15/22 metroNIDAZOLE [Flagyl] 500 mg PO TID #30 tab 12/25/22 Cyclobenzaprine [Flexeril] 5 mg PO TID PRN #15 tablet 02/11/23 Ibuprofen [Motrin] 800 mg PO Q6HR #30 tab 02/11/23 Lidocaine 5% Patch [Lidoderm 5% 1 patch TOPICAL DAILY #7 patch 02/11/23 Patch] Allergies Allergy/AdvReac Type Severity Reaction Status Date / Time Penicillins Allergy Rash/Hives Verified 12/25/22 10:37 Review of Systems ROS Statement: Those systems with pertinent positive or pertinent negative responses have been documented in the HPI. ROS Other: All systems not noted in ROS Statement are negative. Past Medical History Past Medical History: Asthma, Blood Disorder, Diabetes Mellitus, GERD/Reflux, Hyperlipidemia, Hypertension, Osteoarthritis (OA), Sleep Apnea/CPAP/BIPAP, Thyroid Disorder Additional Past Medical History / Comment(s): Hx of diverticulitis with Bowel Resection., HX of thyroid nodule, uses C-Pap machine. IRON DEFICIENCY ANEMIA. DARK STOOLS. History of Any Multi-Drug Resistant Organisms: C-DIFF Date of last positivie culture/infection: 07/14/16 MDRO Source:: cdiff Past Surgical History: Adenoidectomy, Bowel Resection, Hernia Repair, Orthopedic Surgery, Tonsillectomy Additional Past Surgical History / Comment(s): R thyroid lobectomy, vasectomy, cyst removed left leg, ganglion cyst rt hand, L inguinal hernia repair x2, EGD/colonoscopy ., Hx c-diff 07/2016. Past Anesthesia/Blood Transfusion Reactions: No Reported Reaction Past Psychological History: No Psychological Hx Reported Smoking Status: Never smoker Past Alcohol Use History: Occasional Past Drug Use History: None Reported - Past Family History Mother Family Medical History: Cancer Additional Family Medical History / Comment(s): melanoma Father Family Medical History: Cancer Additional Family Medical History / Comment(s): myelogenous leukemia General Exam - General Exam Comments Initial Comments: General: Alert, in no acute distress Head: atraumatic normocephalic. Eyes PERRL, EOMI intact, mucous membranes moist Respiratory: Lungs clear to auscultation bilaterally Cardiovascular: Rate regular rate and rhythm Abdominal: Soft without guarding or rebound Extremities: Normal inspection with full range of motion and normal capillary refill Back: No step-off no paraspinal muscle tenderness Neuroogic: alert and oriented 3, CN II-XII intact, able to ambulate with steady gait Skin: warm dry and intact with normal color Limitations: no limitations Course Vital Signs 02/11/23 02/11/23 11:04 12:48 Temperature 97 F L 98.6 F Pulse Rate 70 78 Respiratory 18 16 Rate Blood Pressure 117/75 120/70 O2 Sat by Pulse 94 L 98 Oximetry - Reevaluation(s) Reevaluation #1: 02/11/23 11:24 Initial history and physical exam performed. Patient was offered CT imaging due to complaining of bilateral leg weakness however he is concerned due to having multiple CTs within the year. Patient requesting to have only x- ray imaging performed. Medical Decision Making - Medical Decision Making Was pt. sent in by a medical professional or institution (, PA, TEACHING MANAGER, urgent care, hospital, or custodial...) When possible be specific @ -[No] Did you speak to anyone other than the patient for history (EMS, parent, family, police, friend...)? What history was obtained from this source @ -[No] Did you review nursing and triage notes (agree or disagree)? Why? @ -[I reviewed and agree with nursing and triage notes] Were old charts reviewed (outside hosp., previous admission, EMS record, old EKG, old radiological studies, urgent care reports/EKG's, custodial records)? Report findings @ -[No old charts were reviewed] Differential Diagnosis (chest pain, altered mental status, abdominal pain women, abdominal pain men, vaginal bleeding, weakness, fever, dyspnea, syncope, headache, dizziness, GI bleed, back pain, seizure, CVA, palpatations, mental health, musculoskeletal)? @ -[not applicable] EKG interpreted by me (3pts min.). @ -[As above] X-rays interpreted by me (1pt min.). @ -Lumbar x-ray and thoracic spine x-ray negative for any fracture dislocation CT interpreted by me (1pt min.). @ -[None done] U/S interpreted by me (1pt. min.). @ -[None done] What testing was considered but not performed or refused? (CT, X-rays, U/S, labs)? Why? @ -[None] What meds were considered but not given or refused? Why? @ -[None] Did you discuss the management of the patient with other professionals (professionals i.e. , PA, TEACHING MANAGER, lab, RT, psych nurse, health social work professor, hot header operator, teacher, radiological defense officer, geriatric case manager)? Give summary @ -[No] Was smoking cessation discussed for >3mins.? @ -[No] Was critical care preformed (if so, how long)? @ -[No] Were there social determinants of health that impacted care today? How? (Homelessness, low income, unemployed, alcoholism, drug addiction, transportation, low edu. Level, literacy, decrease access to med. care, prison, rehab)? @ -[No] Was there de-escalation of care discussed even if they declined (Discuss DNR or withdrawal of care, Hospice)? DNR status @ -[No] What co-morbidities impacted this encounter? (DM, HTN, Smoking, COPD, CAD, Cancer, CVA, ARF, Chemo, Hep., AIDS, mental health diagnosis, sleep apnea, morbid obesity)? @ -[None] Was patient admitted / discharged? Hospital course, mention meds given and route, prescriptions, significant lab abnormalities, going to OR and other pertinent info. @ -Discharged. This is a pleasant 68-year-old male who presents to the emergency department with back pain. He should had thorough history and physical exam performed while in the ED. Physical exam is essentially unremarkable. Heart rate regular rate and rhythm patient bilaterally. Full range of motion of all extremities. Patient able to ambulate with steady gait without difficulty. No paraspinal muscle tenderness or step-off. Patient had x-rays which were negative. He was offered CT imaging as he was complaining of bilateral leg weakness however he endorses he believes this is secondary to pain. Patient given Lidoderm patch, Flexeril, Motrin was symptomatically relief in the ED. Return precautions were discussed at length. Case discussed with AVI Noel who agrees with plan of care Undiagnosed new problem with uncertain prognosis? @ -[No] Drug Therapy requiring intensive monitoring for toxicity (Heparin, Nitro, Insulin, Cardizem)? @ -[No] Were any procedures done? @ -[No] Diagnosis/symptom? @ -Back Pain Acute, or Chronic, or Acute on Chronic? @ -[default] Uncomplicated (without systemic symptoms) or Complicated (systemic symptoms)? @ -Acute Side effects of treatment? @ -Low likelihood Exacerbation, Progression, or Severe Exacerbation? @ -[No] Poses a threat to life or bodily function? How? (Chest pain, [place], [place], pneumonia, PE, COPD, DKA, ARF, appy, cholecystitis, CVA, Diverticulitis, Homicidal, Suicidal, threat to staff... and all critical care pts) @ -Low likelihood Disposition Clinical Impression: Mechanical back pain Disposition: HOME SELF-CARE Condition: Stable Instructions (If sedation given, give patient instructions): Acute Low Back Pain (ED) Additional Instructions: Please monitor your symptoms closely Apply lidoderm patch as needed Take tylenol or motrin for pain Please take flexeril as needed for muscle spasm Return to the nearest emergency department if symptoms worsen or persist including development of saddle parasthesia or loss of bowel/bladder function Prescriptions: Cyclobenzaprine [Flexeril] 5 mg PO TID PRN #15 tablet PRN Reason: Muscle Spasm Lidocaine 5% Patch [Lidoderm 5% Patch] 1 patch TOPICAL DAILY #7 patch Ibuprofen [Motrin] 800 mg PO Q6HR #30 tab Is patient prescribed a controlled substance at d/c from ED?: No Referrals: Kim Weiss MD [Primary Care Provider] - 1-2 days Time of Disposition: 12:24
[2023-02-11] MEDS ORDERED: CYCLOBENZAPRINE 5 MG TAB PO STA (11:49)
[2023-02-11] MEDS ORDERED: LIDOCAINE 5% PATCH TOPICAL SCH (12:00)
--- NOTE | 2023-02-11 12:04 | XR ---
EXAMINATION TYPE: XR thoracic spine 2V DATE OF EXAM: 02/11/2023 11:54 AM CLINICAL INDICATION:Male, 68 years old with history of thoracic back pain; [facility] COMPARISON: None TECHNIQUE: 2 views of the thoracic spine in Frontal and lateral projections. FINDINGS: No evidence of acute fracture. There is scattered multilevel disk space narrowing without loss of ve rtebral body height. There is normal alignment of the thoracic vertebral bodies. Scattered osteophyte formation along the anterior and lateral aspects of the vertebral bodies. Neural foramen are patent given limitations of this exam. Spinal canal appears patent. IMPRESSION: 1. No acute osseous pathology. 2. [id number] multilevel degeneration changes throughout the spine.
--- NOTE | 2023-02-11 12:05 | XR ---
EXAMINATION TYPE: XR lumbar spine 2 or 3V DATE OF EXAM: 02/11/2023 11:54 AM CLINICAL INDICATION:Male, 68 years old with history of Back pain; [facility] COMPARISON: None TECHNIQUE: XR lumbar spine 2 or 3V - Frontal and lateral views of the spine. FINDINGS: No evidence of any acute osseous pathology. No evidence of loss of vertebral body height i s seen. There is normal alignment of the lumbar vertebral bodies. Mild scattered disc space narrowing . Multilevel marginal osteophyte formation throughout the visualized spine. There is facet joint arth ropathy throughout the spine. Scattered at least mild neural foraminal stenosis. IMPRESSION: 1. No acute fracture. 2. Mild multilevel disc degeneration.
[2023-02-11 12:59] VITALS: BP 120/70; PULSE 78; RESP 16; TEMP 98.6
== END 2023-02-11 13:25 | disposition home or self-care (01) ==
LOC: EC 11:00
DX: M54.50 Low back pain, unspecified (principal); I10 Essential (primary) hypertension; J45.909 Unspecified asthma, uncomplicated; E78.5 Hyperlipidemia, unspecified; K21.9 Gastro-esophageal reflux disease without esophagitis; Z79.84 Long term (current) use of oral hypoglycemic drugs; Z79.82 Long term (current) use of aspirin; Z79.51 Long term (current) use of inhaled steroids; Z79.899 Other long term (current) drug therapy; Z88.0 Allergy status to penicillin
CPT/HCPCS: 72070; 72100; 99284; 96372; J1885

== ENCOUNTER → 2023-10-03 | Outpatient (CLI) | payer MEDICAID, MEDICARE, OTHER ==
[2023-10-03 14:51] LABS: Basophils # (A) 0.04 X 10*3/uL (0.00-0.10); Basophils % (A) 0.7 %; Eosinophils # (A) 0.09 X 10*3/uL (0.04-0.35); Eosinophils % (A) 1.6 %; HCT 47.6 % (39.6-50.0); HGB 15.7 g/dL (13.0-17.0); Lymphocytes # (A) 0.86 X 10*3/uL (0.90-5.00); Lymphocytes % (A) 15.4 %; MCH 29.7 pg (27.0-32.0); MCV 90.2 FL (80.0-97.0); Monocytes # (A) 0.39 X 10*3/uL (0.20-1.00); NRBC Per 100 WBC 0 X 10*3/uL (0.00-0.01); Neutrophils # (A) 4.16 X 10*3/uL (1.80-7.70); Neutrophils % (A) 74.8 %; Platelet Count 206 X 10*3/uL (140-440); RBC 5.28 X 10*6/uL (4.40-5.60); RDW 13.3 % (11.5-14.5); WBC 5.57 X 10*3/uL (4.50-10.00)
[2023-10-03 15:34] LABS: % Iron Saturation 23.49 (15.00-50.00); ALT 18 U/L (10-49); AST 20 U/L (14-35); Albumin 4.5 g/dL (3.8-4.9); Albumin/Globulin Ratio 2.14 Ratio (1.60-3.17); Alkaline Phosphatase 68 U/L (41-126); BUN/Creat Ratio 17.17 Ratio (12.00-20.00); Blood Urea Nitrogen 20.6 mg/dL (9.0-27.0); Calcium 9.3 mg/dL (8.7-10.3); Carbon Dioxide 25.4 mmol/L (21.6-31.8); Chloride 105 mmol/L (96-109); Ferritin 57.6 ng/mL (22.0-322.0); Globulin 2.1 g/dL (1.6-3.3); Glucose 115 mg/dL (70-110); Iron 74 UG/DL (65-175); LDL Cholesterol,Calculated 71.3 mg/dL (0.0-131.0); Potassium 4.4 mmol/L (3.5-5.5); Sodium 141 mmol/L (135-145); T4, Free (Free Thyroxine) 1.22 ng/dL (0.80-1.80); Total Bilirubin 0.5 mg/dL (0.3-1.2); Total Iron Binding Capacity 315 UG/DL (228-460); Total Protein 6.6 g/dL (6.2-8.2); VLDL Calculation 9.66 mg/dL (5.00-40.00)
== END | disposition home or self-care (01) ==
LOC: LABWHC1 08:38
PROVIDERS: ATTEND Internal Medicine
DX: I10 Essential (primary) hypertension (principal); E11.9 Type 2 diabetes mellitus without complications; E78.5 Hyperlipidemia, unspecified; E55.9 Vitamin D deficiency, unspecified; D50.9 Iron deficiency anemia, unspecified
CPT/HCPCS: 36415; 80053; 80061; 82306; 82728; 83036; 83540; 83550; 84439; 84443; 85025

== ENCOUNTER → 2024-05-26 | Outpatient (CLI) | payer MEDICAID, MEDICARE, OTHER ==
[2024-05-26 14:58] LABS: Basophils # (A) 0.02 X 10*3/uL (0.00-0.10); Basophils % (A) 0.4 %; Eosinophils # (A) 0.09 X 10*3/uL (0.04-0.35); Eosinophils % (A) 1.7 %; HCT 47.5 % (39.6-50.0); HGB 15.6 g/dL (13.0-17.0); Lymphocytes # (A) 0.82 X 10*3/uL (0.90-5.00); Lymphocytes % (A) 15.4 %; MCH 29.8 pg (27.0-32.0); MCHC 32.8 g/dL (32.0-37.0); MCV 90.6 FL (80.0-97.0); Mean Platelet Volume 11.1 FL (9.5-12.2); Monocytes # (A) 0.39 X 10*3/uL (0.20-1.00); Monocytes % (A) 7.3 %; NRBC Per 100 WBC 0 X 10*3/uL (0.00-0.01); Neutrophils % (A) 74.8 %; Platelet Count 204 X 10*3/uL (140-440); RBC 5.24 X 10*6/uL (4.40-5.60); WBC 5.34 X 10*3/uL (4.50-10.00)
[2024-05-26 15:22] LABS: ALT 16 U/L (10-49); AST 17 U/L (14-35); Albumin 4.5 g/dL (3.8-4.9); Albumin/Globulin Ratio 2.14 Ratio (1.60-3.17); Alkaline Phosphatase 75 U/L (41-126); BUN/Creat Ratio 11.77 Ratio (12.00-20.00); Blood Urea Nitrogen 15.3 mg/dL (9.0-27.0); Calcium 9.8 mg/dL (8.7-10.3); Carbon Dioxide 24.8 mmol/L (21.6-31.8); Chloride 104 mmol/L (96-109); Ferritin 79.2 ng/mL (22.0-322.0); Globulin 2.1 g/dL (1.6-3.3); Glucose 104 mg/dL (70-110); Iron 66 UG/DL (65-175); Potassium 4.3 mmol/L (3.5-5.5); Sodium 141 mmol/L (135-145); T4, Free (Free Thyroxine) 1.35 ng/dL (0.80-1.80); Total Bilirubin 0.5 mg/dL (0.3-1.2); Total Protein 6.6 g/dL (6.2-8.2)
[2024-05-26 16:06] LABS: Erythrocyte Sedimentation Rate 12 mm/Hr (0-20)
== END | disposition home or self-care (01) ==
LOC: LABWHC1 09:10
PROVIDERS: ATTEND Internal Medicine
DX: D64.9 Anemia, unspecified (principal); R53.1 Weakness; R61 Generalized hyperhidrosis; R53.83 Other fatigue
CPT/HCPCS: 36415; 80053; 82306; 82607; 82728; 82746; 83036; 83540; 84439; 84443; 85025; 85652; 86038

== ENCOUNTER → 2024-06-03 | Outpatient (CLI) | payer MEDICAID, MEDICARE, OTHER ==
[2024-06-03 09:01] LABS: African American GFR (CKD) 66 (>60 ml/min/1.73 sqM); Blood Urea Nitrogen 22 mg/dL (9-20); Non-African American GFR(CKD) 57 (>60 ml/min/1.73 sqM)
--- NOTE | 2024-06-03 09:49 | CT ---
EXAMINATION TYPE: CT soft tissue neck w con CT DLP: 524.80 mGycm, Automated exposure control for dose reduction was used. DATE OF EXAM: 06/03/2024 9:29 AM COMPARISON: Cervical spine radiograph 02/04/2015, multiple ultrasounds with most recent 10/24/2018. CLINICAL INDICATION:Male, 69 years old with history of R59.0 LOCALIZED ENLARGED LYMPH NODES; [facility], enl arged lymph nodes rt side marked by bb hx of partial rt thyroidectomy TECHNIQUE: Standard enhanced CT of the neck following intravenous administration of 100 cc of Isovue 300. Axial sections with coronal and sagittal reformats were obtained. BB marker was placed at site of palpable abnormality. FINDINGS: Brain: Visualized portions are grossly unremarkable. Orbits: Unremarkable Sinuses: Grossly unremarkable. Suprahyoid Neck: The oropharynx, oral cavity, parapharyngeal and retropharyngeal spaces are clear and symmetric. The nasopharynx is unremarkable. Infrahyoid Neck: The larynx, hypopharynx, and supraglottic area are clear and symmetric. Parotid Glands: Unremarkable. Submandibular Glands: Unremarkable. Musculoskeletal: No acute osseous pathology. Multilevel degenerative disc disease. Lymph nodes: No pathologically enlarged lymph nodes identified. No abnormality identified aside a pa lpable marker. Vascular structures: Visualized major arteries are patent without evidence of aneurysm. Thoracic Inlet/airway: Airway is patent. The lung apices are clear. Soft tissues/Thyroid: The soft tissues are unremarkable. Postsurgical changes from right sided partia l thyroidectomy. No suspicious soft tissue within the thyroidectomy bed. No discrete nodules identifi ed within the left thyroid lobe. Other: none. IMPRESSION 1. No definite evidence for pathologic lymphadenopathy. No abnormality identified at palpable marker. 2. Postsurgical changes from right-sided partial thyroidectomy without suspicious soft tissue within the thyroidectomy bed. [facility], , 06/03/2024 9:47 AM
== END | disposition home or self-care (01) ==
LOC: RADCTMAIN 08:17
PROVIDERS: ATTEND Internal Medicine
DX: R59.0 Localized enlarged lymph nodes (principal); Z98.890 Other specified postprocedural states
CPT/HCPCS: 82565; 84520; 70491; 36415; Q9967

== ENCOUNTER → 2024-09-04 | Outpatient (CLI) | payer MEDICAID, MEDICARE, OTHER | END | disposition home or self-care (01) | LOC: LABWHC1 10:47 | PROVIDERS: ATTEND Urology | DX: R35.0 Frequency of micturition (principal) | CPT/HCPCS: 36415; 84153 ==

== ENCOUNTER 2024-11-13 08:43 | Observation (INO) | payer MEDICAID, MEDICARE ==
--- NOTE | 2024-11-13 09:15 | ED ---
Arrhythmia/Palpitations HPI - General Chief Complaint: Arrhythmia/Palpitations Stated Complaint: New onset afib Time Seen by Provider: 11/13/24 08:50 Source: patient, RN notes reviewed Mode of arrival: ambulatory Limitations: no limitations - History of Present Illness Initial Comments: 69-year-old male presents emergency department with chief complaint of palpitations. Patient states that started feeling his heart was racing, pounding sensation. Patient states there is some discomfort associated with this in his central chest. Patient states that he checked his heart rate at home with machine and stated that it was initially tachycardia but then was told it was A-fib. Patient states that he has not history A-fib but he states he has frequent PVCs and bigeminy. 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 - Related Data Home Medications Medication Instructions Recorded Confirmed Atorvastatin [Lipitor] 10 mg PO HS 02/08/16 10/26/21 Losartan Potassium 50 mg PO QAM 02/08/16 10/26/21 Metoprolol Tartrate [Lopressor] 25 mg PO QAM 02/08/16 10/26/21 hydroCHLOROthiazide [Hydrodiuril] 25 mg PO QAM 02/08/16 10/26/21 Cholecalciferol [Vitamin D3 (25 2,000 unit PO DAILY 03/08/16 10/26/21 Mcg = 1000 Iu)] metFORMIN HCL [Metformin HCl ER] 500 mg PO BID 07/14/16 10/26/21 Aspirin [Adult Low Dose Aspirin EC] 81 mg PO DAILY 09/01/16 10/26/21 Esomeprazole Magnesium [NexIUM] 20 mg PO HS 04/22/19 10/26/21 Budesonide-Formot 160-4.5 Mcg 2 puff INHALATION BID 09/01/21 10/28/21 [Symbicort 160-4.5 Mcg Inhaler] Ascorbic Acid [Vitamin C] 500 mg PO DAILY 10/26/21 10/26/21 Cyanocobalamin (Vitamin B-12) 5,000 mcg PO DAILY 10/26/21 10/26/21 [Vitamin B-12] Ferrous Sulfate [Iron (65 MG 325 mg PO DAILY 10/26/21 10/26/21 Elemental)] Previous Rx's Medication Instructions Recorded Ciprofloxacin HCl [Cipro] 500 mg PO Q12HR #20 tablet 05/15/22 Dicyclomine [Bentyl] 20 mg PO TID #30 tablet 05/15/22 metroNIDAZOLE [Flagyl] 500 mg PO TID #30 tab 05/15/22 metroNIDAZOLE [Flagyl] 500 mg PO TID #30 tab 12/25/22 Cyclobenzaprine [Flexeril] 5 mg PO TID PRN #15 tablet 02/11/23 Ibuprofen [Motrin] 800 mg PO Q6HR #30 tab 02/11/23 Lidocaine 5% Patch [Lidoderm 5% 1 patch TOPICAL DAILY #7 patch 02/11/23 Patch] Allergies Allergy/AdvReac Type Severity Reaction Status Date / Time Penicillins Allergy Rash/Hives Verified 11/13/24 08:50 Review of Systems ROS Statement: Those systems with pertinent positive or pertinent negative responses have been documented in the HPI. ROS Other: All systems not noted in ROS Statement are negative. Past Medical History Past Medical History: Asthma, Blood Disorder, Diabetes Mellitus, GERD/Reflux, Hyperlipidemia, Hypertension, Osteoarthritis (OA), Sleep Apnea/CPAP/BIPAP, Thyroid Disorder Additional Past Medical History / Comment(s): Hx of diverticulitis with Bowel Resection., HX of thyroid nodule, uses C-Pap machine. IRON DEFICIENCY ANEMIA. DARK STOOLS. History of Any Multi-Drug Resistant Organisms: C-DIFF Date of last positivie culture/infection: 07/14/16 MDRO Source:: cdiff Past Surgical History: Adenoidectomy, Bowel Resection, Hernia Repair, Orthopedic Surgery, Tonsillectomy Additional Past Surgical History / Comment(s): R thyroid lobectomy, vasectomy, cyst removed left leg, ganglion cyst rt hand, L inguinal hernia repair x2, EGD/colonoscopy ., Hx c-diff 07/2016. Past Anesthesia/Blood Transfusion Reactions: No Reported Reaction Past Psychological History: No Psychological Hx Reported Smoking Status: Never smoker Past Alcohol Use History: Daily Past Drug Use History: None Reported - Past Family History Mother Family Medical History: Cancer Additional Family Medical History / Comment(s): melanoma Father Family Medical History: Cancer Additional Family Medical History / Comment(s): myelogenous leukemia General Exam Limitations: no limitations General appearance: alert, in no apparent distress Head exam: Present: atraumatic, normocephalic, normal inspection Eye exam: Present: normal appearance, PERRL, EOMI. Absent: scleral icterus, conjunctival injection, periorbital swelling ENT exam: Present: normal exam, mucous membranes moist Neck exam: Present: normal inspection, full ROM. Absent: tenderness, meningismus, lymphadenopathy Respiratory exam: Present: normal lung sounds bilaterally. Absent: respiratory distress, wheezes, rales, rhonchi, stridor Cardiovascular Exam: Present: normal rhythm, tachycardia, normal heart sounds. Absent: systolic murmur, diastolic murmur, rubs, gallop, clicks GI/Abdominal exam: Present: soft, normal bowel sounds. 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 sent in by a medical professional or institution ([facility], MANNEQUIN MOUNTER, urgent care, hospital, or alf...) When possible be specific @ -No Did you speak to anyone other than the patient for history (EMS, parent, family, police, friend...)? What history was obtained from this source @ -No Did you review nursing and triage notes (agree or disagree)? Why? @ -I reviewed and agree with nursing and triage notes Were old charts reviewed (outside hosp., previous admission, EMS record, old EKG, old radiological studies, urgent care reports/EKG's, alf records)? Report findings @ -No old charts were reviewed Differential Diagnosis (chest pain, altered mental status, abdominal pain women, abdominal pain men, vaginal bleeding, weakness, fever, dyspnea, syncope, headache, dizziness, GI bleed, back pain, seizure, CVA, palpatations, mental health, musculoskeletal)? @ -Differential Palpitations Ventricular arrhythmias, atrial arrhythmias, myocardial infarction, anemia, thyrotoxicosis, electrolyte imbalance, hypokalemia, pulmonary embolism, pulmonary disease, drugs, alcohol, anxiety, stress.... This is not meant to be an all-inclusive list. EKG interpreted by me (3pts min.). @ -As above X-rays interpreted by me (1pt min.). @ -Chest x-ray shows no acute cardiopulmonary process. CT interpreted by me (1pt min.). @ -None done U/S interpreted by me (1pt. min.). @ -None done What testing was considered but not performed or refused? (CT, X-rays, U/S, labs)? Why? @ -None What meds were considered but not given or refused? Why? @ -None Did you discuss the management of the patient with other professionals (professionals i.e. , PA, MANNEQUIN MOUNTER, lab, RT, psych nurse, clinical social work aide, certified medical transcriptionist, teacher, infantry weapons officer, case making machine operator)? Give summary @ -EMH for admission Was smoking cessation discussed for >3mins.? @ -No Was critical care preformed (if so, how long)? @ -No Were there social determinants of health that impacted care today? How? (Homelessness, low income, unemployed, alcoholism, drug addiction, trans portation, low edu. Level, literacy, decrease access to med. care, senior care, rehab)? @ -No Was there de-escalation of care discussed even if they declined (Discuss DNR or withdrawal of care, Hospice)? DNR status @ -No What co-morbidities impacted this encounter? (DM, HTN, Smoking, COPD, CAD, Cancer, CVA, ARF, Chemo, Hep., AIDS, mental health diagnosis, sleep apnea, morbid obesity)? @ -None Was patient admitted / discharged? Hospital course, mention meds given and route, prescriptions, significant lab abnormalities, going to OR and other pertinent info. @ -Admitted patient presented for palpitations, chest chest comfort. Patient initial workup is negative. Patient does have multiple runs of bigeminy, frequent PVCs. Patient will be admitted for cardiology evaluation. Undiagnosed new problem with uncertain prognosis? @ -No Drug Therapy requiring intensive monitoring for toxicity (Heparin, Nitro, Insulin, Cardizem)? @ -No Were any procedures done? @ -No Diagnosis/symptom? @ -Palpitations, chest pain Acute, or Chronic, or Acute on Chronic? @ -Acute Uncomplicated (without systemic symptoms) or Complicated (systemic symptoms)? @ -Complicated Side effects of treatment? @ -No Exacerbation, Progression, or Severe Exacerbation? @ -No Poses a threat to life or bodily function? How? (Chest pain, [place], [place], pneumonia, PE, COPD, DKA, ARF, appy, cholecystitis, CVA, Diverticulitis, Homicidal, Suic idal, threat to staff... and all critical care pts) @ -Yes threat to cardiac function - Lab Data Result diagrams: 11/13/24 09:17 11/13/24 09:17 Lab Results 11/13/24 11/13/24 11/13/24 Range/Units 09:17 09:17 09:17 WBC 6.28 (4.50-10.00) 10*3/uL RBC 4.98 (4.40-5.60) 10*6/uL Hgb 15.2 (13.0-17.0) g/dL Hct 44.3 (39.6-50.0) % MCV 89.0 (80.0-97.0) fL MCH 30.5 (27.0-32.0) pg MCHC 34.3 (32.0-37.0) g/dL Plt Count 185 (140-440) 10*3/uL MPV 10.5 (9.5-12.2) fL Immature Gran % (Auto) 0.3 % Neutrophils % 78.8 % Lymphocytes % 11.6 % Monocytes % 8.0 % Eosinophils % 0.8 % Basophils % 0.5 % Immature Gran # 0.02 (0.00-0.04) 10*3/uL Neutrophils # 4.95 (1.80-7.70) 10*3/uL Lymphocytes # 0.73 L (0.90-5.00) 10*3/uL Monocytes # 0.50 (0.20-1.00) 10*3/uL Eosinophils # 0.05 (0.04-0.35) 10*3/uL Basophils # 0.03 (0.00-0.10) 10*3/uL PT 10.5 (10.0-12.5) sec INR 0.9 (<1.2) APTT 24.6 (22.0-30.0) sec Sodium 139 (137-145) mmol/L Potassium 4.2 (3.5-5.1) mmol/L Chloride 105 (98-107) mmol/L Carbon Dioxide 25 (22-30) mmol/L Anion Gap 9 mmol/L BUN 13 (9-20) mg/dL Creatinine 1.14 (0.66-1.25) mg/dL Est GFR (CKD-EPI)AfAm 75 (>60 ml/min/1.73 sqM) Est GFR (CKD-EPI)NonAf 65 (>60 ml/min/1.73 sqM) Glucose 119 H (74-99) mg/dL Calcium 9.3 (8.4-10.2) mg/dL Magnesium 1.9 (1.6-2.3) mg/dL Total Bilirubin 0.8 (0.2-1.3) mg/dL AST 27 (17-59) U/L ALT 20 (4-49) U/L Alkaline Phosphatase 66 (38-126) U/L Troponin I (0.000-0.034) ng/mL Total Protein 6.8 (6.3-8.2) g/dL Albumin 4.5 (3.5-5.0) g/dL 11/13/24 Range/Units 09:17 WBC (4.50-10.00) 10*3/uL RBC (4.40-5.60) 10*6/uL Hgb (13.0-17.0) g/dL Hct (39.6-50.0) % MCV (80.0-97.0) fL MCH (27.0-32.0) pg MCHC (32.0-37.0) g/dL Plt Count (140-440) 10*3/uL MPV (9.5-12.2) fL Immature Gran % (Auto) % Neutrophils % % Lymphocytes % % Monocytes % % Eosinophils % % Basophils % % Immature Gran # (0.00-0.04) 10*3/uL Neutrophils # (1.80-7.70) 10*3/uL Lymphocytes # (0.90-5.00) 10*3/uL Monocytes # (0.20-1.00) 10*3/uL Eosinophils # (0.04-0.35) 10*3/uL Basophils # (0.00-0.10) 10*3/uL PT (10.0-12.5) sec INR (<1.2) APTT (22.0-30.0) sec Sodium (137-145) mmol/L Potassium (3.5-5.1) mmol/L Chloride (98-107) mmol/L Carbon Dioxide (22-30) mmol/L Anion Gap mmol/L BUN (9-20) mg/dL Creatinine (0.66-1.25) mg/dL Est GFR (CKD-EPI)AfAm (>60 ml/min/1.73 sqM) Est GFR (CKD-EPI)NonAf (>60 ml/min/1.73 sqM) Glucose (74-99) mg/dL Calcium (8.4-10.2) mg/dL Magnesium (1.6-2.3) mg/dL Total Bilirubin (0.2-1.3) mg/dL AST (17-59) U/L ALT (4-49) U/L Alkaline Phosphatase (38-126) U/L Troponin I <0.012 (0.000-0.034) ng/mL Total Protein (6.3-8.2) g/dL Albumin (3.5-5.0) g/dL Disposition Clinical Impression: Palpitations, Frequent PVCs, Chest pain Disposition: ADMITTED IP TO THIS [facility] Condition: Fair Referrals: Kim Weiss MD [Primary Care Provider] - 1-2 days Time of Disposition: 10:44
[2024-11-13] MEDS: ACETAMINOPHEN TAB 325 MG TAB PO STA (09:24)
[2024-11-13 09:25] LABS: Basophils # (A) 0.03 10*3/uL (0.00-0.10); Basophils % (A) 0.5 %; Eosinophils # (A) 0.05 10*3/uL (0.04-0.35); Eosinophils % (A) 0.8 %; HCT 44.3 % (39.6-50.0); HGB 15.2 g/dL (13.0-17.0); Lymphocytes # (A) 0.73 10*3/uL (0.90-5.00); Lymphocytes % (A) 11.6 %; MCH 30.5 pg (27.0-32.0); MCHC 34.3 g/dL (32.0-37.0); MCV 89.0 fL (80.0-97.0); Monocytes # (A) 0.50 10*3/uL (0.20-1.00); Monocytes % (A) 8.0 %; Neutrophils # (A) 4.95 10*3/uL (1.80-7.70); Neutrophils % (A) 78.8 %; Platelet Count 185 10*3/uL (140-440); RBC 4.98 10*6/uL (4.40-5.60); RDW 13.6 % (11.5-14.5); WBC 6.28 10*3/uL (4.50-10.00)
[2024-11-13] MEDS: SODIUM CHLORIDE 0.9% 1,000 ML IV STA (09:25)
[2024-11-13 09:42] LABS: ALT 20 U/L (4-49); African American GFR (CKD) 75 (>60 ml/min/1.73 sqM); Albumin 4.5 g/dL (3.5-5.0); Anion Gap 9 mmol/L; Blood Urea Nitrogen 13 mg/dL (9-20); Calcium 9.3 mg/dL (8.4-10.2); Carbon Dioxide 25 mmol/L (22-30); Chloride 105 mmol/L (98-107); Glucose 119 mg/dL (74-99); Non-African American GFR(CKD) 65 (>60 ml/min/1.73 sqM); Sodium 139 mmol/L (137-145); Total Protein 6.8 g/dL (6.3-8.2)
[2024-11-13 09:49] LABS: AST 27 U/L (17-59); Alkaline Phosphatase 66 U/L (38-126); Potassium 4.2 mmol/L (3.5-5.1)
[2024-11-13 09:50] LABS: Magnesium 1.9 mg/dL (1.6-2.3)
--- NOTE | 2024-11-13 09:51 | XR ---
EXAMINATION TYPE: XR chest 2V DATE OF EXAM: 11/13/2024 9:39 AM COMPARISON: Chest radiographs from 09/15/2022. CLINICAL INDICATION: Male, 69 years old with history of dysrhythmia; [facility] TECHNIQUE: XR chest 2V Frontal and lateral views of the chest. FINDINGS: Lungs/Pleura: There is no evidence of pleural effusion, focal consolidation, or pneumothorax. Pulmonary vascularity: Unremarkable. Heart/mediastinum: Cardiomediastinal silhouette is unremarkable. Musculoskeletal: No acute osseous pathology. IMPRESSION: No acute cardiopulmonary disease/process. [facility], , 11/13/2024 9:49 AM
[2024-11-13 09:52] LABS: INR 0.9 (<1.2); Partial Thromboplastin Time 24.6 sec (22.0-30.0); Prothrombin Time 10.5 sec (10.0-12.5)
[2024-11-13] MEDS ORDERED: NITROGLYCERIN SL TABS 0.4 MG TAB SUBLINGUAL PRN (10:44)
[2024-11-13] MEDS: ASPIRIN 81 MG PO STA (11:14)
--- NOTE | 2024-11-13 12:33 | P.HPIM ---
History of Present Illness This is a pleasant 69 years old male with past medical history of multiple medical problems as below Patient presents because of palpitation pounding heart in his chest started this morning for a few hours. He checked his monitor and said his A-fib, he says he never had A-fib before Patient denies chest pain or dyspnea. No other specific GI or symptoms. Patient has mild headache 1-3/10 but no blurred vision no weakness numbness He denies smoking alcohol illicit drugs. Patient was not on antibiotics prior to admission. Vitals are stable except for mild tachycardia with heart rate 102. Patient is afebrile. CBC BMP LFT INR troponin were negative. Chest x-ray showed no acute cardiopulmonary process. EKG showing sinus tachycardia [address] changes but few PVCs. Patient started on aspirin 325 mg and admitted with cardiology team consult Review of Systems Review of systems CONSTITUTIONAL: No fever, no malaise, no fatigue. HEENT: No recent visual problems or hearing problems. Denied any sore throat. CARDIOVASCULAR: No orthopnea, PND, no palpitations, no syncope. PULMONARY: No shortness of breath, no cough, no hemoptysis. GASTROINTESTINAL: No diarrhea, no nausea, no vomiting, no abdominal pain. Normoactive bowel sounds. NEUROLOGICAL: No headaches, no weakness, no numbness. HEMATOLOGICAL: Denies any bleeding or petechiae. GENITOURINARY: Denies any burning micturition, frequency, or urgency. MUSCULOSKELETAL/RHEUMATOLOGICAL: Denies any joint pain, swelling, or any muscle pain. ENDOCRINE: Denies any polyuria or polydipsia. Past Medical History Past Medical History: Asthma, Blood Disorder, Diabetes Mellitus, GERD/Reflux, Hyperlipidemia, Hypertension, Osteoarthritis (OA), Sleep Apnea/CPAP/BIPAP, Thyroid Disorder Additional Past Medical History / Comment(s): Hx of diverticulitis with Bowel Resection., HX of thyroid nodule, uses C-Pap machine. IRON DEFICIENCY ANEMIA. DARK STOOLS. History of Any Multi-Drug Resistant Organisms: C-DIFF Date of last positivie culture/infection: 07/14/16 MDRO Source:: cdiff Past Surgical History: Adenoidectomy, Bowel Resection, Hernia Repair, Orthopedic Surgery, Tonsillectomy Additional Past Surgical History / Comment(s): R thyroid lobectomy, vasectomy, cyst removed left leg, ganglion cyst rt hand, L inguinal hernia repair x2, EGD/colonoscopy ., Hx c-diff 07/2016. Past Anesthesia/Blood Transfusion Reactions: No Reported Reaction Past Psychological History: No Psychological Hx Reported Smoking Status: Never smoker Past Alcohol Use History: Daily Past Drug Use History: None Reported - Past Family History Mother Family Medical History: Cancer Additional Family Medical History / Comment(s): melanoma Father Family Medical History: Cancer Additional Family Medical History / Comment(s): myelogenous leukemia Medications and Allergies Home Medications Medication Instructions Recorded Confirmed Type Atorvastatin [Lipitor] 10 mg PO HS 02/08/16 11/13/24 History Losartan Potassium 50 mg PO HS 02/08/16 11/13/24 History Metoprolol Tartrate [Lopressor] 25 mg PO BID 02/08/16 11/13/24 History hydroCHLOROthiazide [Hydrodiuril] 25 mg PO QAM 02/08/16 11/13/24 History Aspirin [Adult Low Dose Aspirin EC] 81 mg PO DAILY 09/01/16 11/13/24 History Esomeprazole Magnesium [NexIUM] 20 mg PO HS 04/22/19 11/13/24 History Cyanocobalamin (Vitamin B-12) 5,000 mcg PO DAILY 10/26/21 11/13/24 History [Vitamin B-12] Ferrous Sulfate [Iron (65 MG 325 mg PO DAILY 10/26/21 11/13/24 History Elemental)] Alfuzosin HCl [Alfuzosin HCl ER] 10 mg PO HS 11/13/24 11/13/24 History Budesonide/Formoterol Fumarate 2 puff INHALATION RT-BID 11/13/24 11/13/24 History [Breyna 160-4.5 Mcg Inhaler] Cholecalciferol [Vitamin D3 (25 50 mcg PO DAILY 11/13/24 11/13/24 History Mcg = 1000 Iu)] Fluorouracil 5% Cream 1 applic PO BID 11/13/24 11/13/24 History Hydrocortisone Cream 1 applic TOPICAL BID PRN 11/13/24 11/13/24 History [Hydrocortisone 2.5% Cream] Ketoconazole 2% Cream [Nizoral 2%] 1 applic TOPICAL BID PRN 11/13/24 11/13/24 History metFORMIN HCL 500 mg PO BID 11/13/24 11/13/24 History Allergies Allergy/AdvReac Type Severity Reaction Status Date / Time Penicillins Allergy Rash/Hives Verified 11/13/24 11:11 Physical Exam Vitals: Vital Signs Temp Pulse Pulse Resp BP Pulse Ox 11/13/24 11:13 74 18 122/75 97 11/13/24 10:08 87 18 115/73 97 11/13/24 09:10 102 H 102 H 18 142/75 97 11/13/24 08:47 98 F 60 18 136/78 98 Intake and Output 11/12/24 11/13/24 11/13/24 22:59 06:59 14:59 Other: Weight 97.522 kg GENERAL: The patient is alert and oriented x3, not in any acute distress. Well developed, well nourished. HEENT: Pupils are round and equally reacting to light. EOMI. No scleral icterus. No conjunctival pallor. Normocephalic, atraumatic. No pharyngeal erythema. No thyromegaly. CARDIOVASCULAR: S1 and S2 present. No murmurs, rubs, or gallops. PULMONARY: Chest is clear to auscultation, no wheezing , no crackles. ABDOMEN: Soft, nontender, nondistended, normoactive bowel sounds. No palpable organomegaly. MUSCULOSKELETAL: No joint swelling or deformity. EXTREMITIES: No cyanosis, clubbing, or pedal edema. NEUROLOGICAL: Gross neurological examination did not reveal any focal deficits. SKIN: No rashes. no petechiae. Results CBC & Chem 7: 11/13/24 09:17 11/13/24 09:17 Labs: Abnormal Lab Results - Last 24 Hours (Table) 11/13/24 11/13/24 Range/Units 09:17 09:17 Lymphocytes # 0.73 L (0.90-5.00) 10*3/uL Glucose 119 H (74-99) mg/dL Assessment and Plan Assessment: Palpitation with mild sinus tachycardia. Rule out cardiac arrhythmia Diabetes mellitus Hypertension Hyperlipidemia History of osteoarthritis Hypothyroidism Plan: Continue with heart monitor Cardiology consult Continue with aspirin Labs and medication were reviewed.. Continue same treatment. Continue with symptomatic treatment. Resume home medication. Monitor lytes and vitals. DVT and GI prophylaxis. Further recommendations depends on the clinical course of the patient DVT prophylaxis: Subcutaneous heparin GI Prophylaxis: Pepcid PT/OT: Pending Prognosis is guarded
[2024-11-13] MEDS: metFORMIN 500 MG TAB PO SCH (21:03)
[2024-11-13] MEDS: METOPROLOL TARTRATE 25 MG TAB PO SCH (21:03)
[2024-11-13] MEDS: ATORVASTATIN 10 MG TAB PO SCH (21:03)
[2024-11-14 07:52] VITALS: RESP 18
[2024-11-14] MEDS ORDERED: NITROGLYCERIN SL TABS 0.4 MG TAB SUBLINGUAL PRN (08:38)
[2024-11-14] MEDS ORDERED: ALPRAZolam 0.5 MG TAB PO PRN (08:38)
[2024-11-14] MEDS ORDERED: ALPRAZolam 0.25 MG TAB PO PRN (08:38)
[2024-11-14] MEDS ORDERED: ASPIRIN 325 MG TAB PO SCH (09:00)
[2024-11-14] MEDS: ASPIRIN 81 MG PO SCH (09:13)
[2024-11-14] MEDS: hydroCHLOROthiazide 25 MG TAB PO SCH (09:13)
[2024-11-14] MEDS: ASPIRIN 325 MG TAB PO STA (09:13)
[2024-11-14] MEDS: ATORVASTATIN 80 MG TAB PO STA (09:13)
[2024-11-14 10:07] LABS: Cholesterol 115.00 mg/dL (0.00-200.00); HDL Cholesterol 46.60 mg/dL (40.00-60.00); LDL Cholesterol,Calculated 54.3 mg/dL (0.0-131.0); Triglycerides 70.40 mg/dL (0.00-149.00); VLDL Calculation 14.08 mg/dL (5.00-40.00)
--- NOTE | 2024-11-14 11:02 | P.EPCON ---
Electrophysiology Consult - EP Consult Electrophysiology Consult: DC full dictation by nurse practitioner Patient presented with palpitations Twelve-lead EKG showed left ventricular PVCs, monomorphic, in a bigeminal and trigeminal pattern History of diabetes and hypertension Suggest TSH Coronary angiography today. Discussed with Dr. Byers If coronary arteries are normal then we will start flecainide 100 mg twice daily I will see him in the office in 1 week for a twelve-lead EKG on 100 mg twice daily of flecainide Exercise stress test on flecainide Thereafter as needed use of 100 mg of flecainide twice daily for 1 to 2 days intermittent episodes of symptomatic palpitations Continue beta-blockers while on flecainide
[2024-11-14 11:21] LABS: Glucose,Whole Blood 96 mg/dL (70-110)
--- NOTE | 2024-11-14 11:29 | P.CRDCN ---
History of Present Illness Consult date: 11/13/24 Consult reason: chest pain History of present illness: This is a 69-year-old male patient of Dr. DAVIDSON Parrish with past medical history of hypertension, hyperlipidemia, diabetes, near syncope with coughing. We have been asked to evaluate the patient for chest pain. Patient states that he was having a pounding heart sensation. He denies chest pain, chest pressure, chest tightness. He states he had been out for a walk with the dog and it was a short walk. He came back into the house and started to make breakfast and he started feeling his heart pounding. He has a cardiac device that registered as tachycardia and then as atrial fibrillation. He has no palpitations at this time. He continues to be chest pain-free. Blood pressure 116/62, heart rate 67, pulse ox 95 % on room air. Dr. Leach described in detail recommendations for cardiac catheterization at this time and patient is agreeable to move forward with this. -EKG: Sinus tachycardia, frequent PVCs with bigeminy, repeat EKG sinus rhythm with no ectopy -Chest x-ray: No acute process. -Laboratory studies: CBC, CMP unremarkable except for glucose of 119. Troponins negative x 3. Triglycerides 70, cholesterol 115, LDL 54. -Home cardiac medications: Aspirin 81 mg daily, atorvastatin 10 mg at bedtime, hydrochlorothiazide 25 mg daily, losartan 50 mg at bedtime, metoprolol tartrate 25 mg twice daily. -Echocardiogram performed 08/16/2022 revealed EF of 55%, mild to moderate mitral regurgitation and mild aortic insufficiency. No pulmonary hypertension. -Event monitor 12/17/2023 - 12/30/2023 revealed sinus rhythm with isolated PVCs. No significant arrhythmias. -Stress echocardiogram performed 10/30/2022 revealed good exercise capacity with negative stress test by EKG criteria. Isolated PVCs and rare couplets. No symptoms of angina. PVCs are asymptomatic. Normal stress echocardiogram without evidence of ischemia. Review Of Systems: At the time of my exam: CONSTITUTIONAL: Denies fever or chills. HEENT: Denies blurred vision, vision changes, or eye pain. Denies hemoptysis CARDIOVASCULAR: Denies chest pain. Denies orthopnea. Denies PND. Denies palpitations RESPIRATORY: Denies shortness of breath. GASTROINTESTINAL: Denies abdominal pain. Denies nausea or vomiting. HEMATOLOGIC: Denies bleeding disorders. GENITOURINARY: Denies any blood in urine. SKIN: Denies puritis. Denies rash. Physical examination: Gen: This is 69-year-old male in no acute distress VS: reviewed HEENT: Head is atraumatic, normocephalic. Pupils equal, round. Sclerae is anicteric. NECK: Supple. No JVD. LUNGS: Clear to auscultation. No wheezes or rhonchi. No intercostal retractio ns. HEART: Regular rate and rhythm. No murmur. ABDOMEN: Soft No tenderness. EXTREMITIES: No pedal edema. No calf tenderness. NEUROLOGICAL: Patient is awake, alert and oriented x3. Assessment: Palpitations Frequent PVCs, bigeminy No complaints of chest pain Hypertension Hyperlipidemia Diabetes mellitus type 2 History of near syncopal episode with coughing Plan: Resume patient's home cardiac medications Obtain TSH and free T4 Schedule patient for cardiac catheterization today with Dr. Byers to rule out CAD If cardiac catheterization is negative, patient will be started on flecainide 100 mg twice daily No need for echocardiogram If cardiac catheterization is negative for obstructive disease, patient is cleared for discharge from cardiology perspective. At the time of discharge, patient will follow-up in the office with Dr. Leach in 1 week and he will be scheduled for stress test in the office to assess for arrhythmia while on flecainide. Thank you kindly for this consultation. Nurse practitioner note has been reviewed, I agree with documented findings and plan of care. Patient was seen and examined. Past Medical History Past Medical History: Asthma, Blood Disorder, Diabetes Mellitus, GERD/Reflux, Hyperlipidemia, Hypertension, Osteoarthritis (OA), Sleep Apnea/CPAP/BIPAP, Thyroid Disorder Additional Past Medical History / Comment(s): Hx of diverticulitis with Bowel Resection., HX of thyroid nodule, uses C-Pap machine. IRON DEFICIENCY ANEMIA. DARK STOOLS. History of Any Multi-Drug Resistant Organisms: C-DIFF Date of last positivie culture/infection: 07/14/16 MDRO Source:: cdiff Past Surgical History: Adenoidectomy, Bowel Resection, Hernia Repair, Orthopedic Surgery, Tonsillectomy Additional Past Surgical History / Comment(s): R thyroid lobectomy, vasectomy, cyst removed left leg, ganglion cyst rt hand, L inguinal hernia repair x2, EGD/colonoscopy ., Hx c-diff 07/2016. Past Anesthesia/Blood Transfusion Reactions: No Reported Reaction Past Psychological History: No Psychological Hx Reported Smoking Status: Never smoker Past Alcohol Use History: Daily Past Drug Use History: None Reported - Past Family History Mother Family Medical History: Cancer Additional Family Medical History / Comment(s): melanoma Father Family Medical History: Cancer Additional Family Medical History / Comment(s): myelogenous leukemia Medications and Allergies Home Medications Medication Instructions Recorded Confirmed Type Atorvastatin [Lipitor] 10 mg PO HS 02/08/16 11/13/24 History Losartan Potassium 50 mg PO HS 02/08/16 11/13/24 History Metoprolol Tartrate [Lopressor] 25 mg PO BID 02/08/16 11/13/24 History hydroCHLOROthiazide [Hydrodiuril] 25 mg PO QAM 02/08/16 11/13/24 History Aspirin [Adult Low Dose Aspirin EC] 81 mg PO DAILY 09/01/16 11/13/24 History Esomeprazole Magnesium [NexIUM] 20 mg PO HS 04/22/19 11/13/24 History Cyanocobalamin (Vitamin B-12) 5,000 mcg PO DAILY 10/26/21 11/13/24 History [Vitamin B-12] Ferrous Sulfate [Iron (65 MG 325 mg PO DAILY 10/26/21 11/13/24 History Elemental)] Alfuzosin HCl [Alfuzosin HCl ER] 10 mg PO HS 11/13/24 11/13/24 History Budesonide/Formoterol Fumarate 2 puff INHALATION RT-BID 11/13/24 11/13/24 H istory [Breyna 160-4.5 Mcg Inhaler] Cholecalciferol [Vitamin D3 (25 50 mcg PO DAILY 11/13/24 11/13/24 History Mcg = 1000 Iu)] Fluorouracil 5% Cream 1 applic PO BID 11/13/24 11/13/24 History Hydrocortisone Cream 1 applic TOPICAL BID PRN 11/13/24 11/13/24 History [Hydrocortisone 2.5% Cream] Ketoconazole 2% Cream [Nizoral 2%] 1 applic TOPICAL BID PRN 11/13/24 11/13/24 History metFORMIN HCL 500 mg PO BID 11/13/24 11/13/24 History Allergies Allergy/AdvReac Type Severity Reaction Status Date / Time Penicillins Allergy Rash/Hives Verified 11/13/24 11:11 Physical Exam Vitals: Vital Signs Temp Pulse Pulse Resp BP Pulse Ox 11/13/24 11:13 74 18 122/75 97 11/13/24 10:08 87 18 115/73 97 11/13/24 09:10 102 H 102 H 18 142/75 97 11/13/24 08:47 98 F 60 18 136/78 98 Intake and Output 11/12/24 11/13/24 11/13/24 22:59 06:59 14:59 Other: Weight 97.522 kg Results 11/13/24 09:17 11/13/24 09:17 Cardiac Enzymes 11/13/24 11/13/24 11/13/24 Range/Units 09:17 09:17 11:56 AST 27 (17-59) U/L Troponin I <0.012 <0.012 (0.000-0.034) ng/mL Coagulation 11/13/24 Range/Units 09:17 PT 10.5 (10.0-12.5) sec APTT 24.6 (22.0-30.0) sec CBC 11/13/24 Range/Units 09:17 WBC 6.28 (4.50-10.00) 10*3/uL RBC 4.98 (4.40-5.60) 10*6/uL Hgb 15.2 (13.0-17.0) g/dL Hct 44.3 (39.6-50.0) % Plt Count 185 (140-440) 10*3/uL Comprehensive Metabolic Panel 11/13/24 Range/Units 09:17 Sodium 139 (137-145) mmol/L Potassium 4.2 (3.5-5.1) mmol/L Chloride 105 (98-107) mmol/L Carbon Dioxide 25 (22-30) mmol/L BUN 13 (9-20) mg/dL Creatinine 1.14 (0.66-1.25) mg/dL Glucose 119 H (74-99) mg/dL Calcium 9.3 (8.4-10.2) mg/dL AST 27 (17-59) U/L ALT 20 (4-49) U/L Alkaline Phosphatase 66 (38-126) U/L Total Protein 6.8 (6.3-8.2) g/dL Albumin 4.5 (3.5-5.0) g/dL Current Medications Generic Name Dose Route Start Last Admin Trade Name Freq PRN Reason Stop Dose Admin Aspirin 325 mg 11/14/24 09:00 Aspirin 325 Mg Tab PO DAILY SOUTH Atorvastatin Calcium 10 mg 11/13/24 21:00 Atorvastatin 10 Mg Tab PO HS [facility] Hydrochlorothiazide 25 mg 11/14/24 09:00 Hydrochlorothiazide 25 Mg Tab PO QAM [facility] Metformin HCl 500 mg 11/13/24 21:00 Metformin 500 Mg Tab PO BID [facility] Metoprolol Tartrate 25 mg 11/13/24 21:00 Metoprolol Tartrate 25 Mg Tab PO BID SOUTH Nitroglycerin 0.4 mg 11/13/24 10:44 Nitroglycerin Sl Tabs 0.4 Mg Tab SUBLINGUAL Q5M PRN Chest Pain Intake and Output 11/12/24 11/13/24 11/13/24 22:59 06:59 14:59 Other: Weight 97.522 kg Patient Weight 11/14/24 06:59 Weight 97.522 kg 11/13/24 09:17 11/13/24 09:17
[2024-11-14] MEDS: MIDAZOLAM 2 MG/2 ML VIAL IVP ONE (14:00)
[2024-11-14] MEDS: fentaNYL (PF) 50 MCG/ML 2 ML AMP IVP ONE (14:00)
[2024-11-14] MEDS: LIDOCAINE 1% INJ 10MG/ML (20 ML MDV) SQ ONE (14:05)
[2024-11-14] MEDS: VERAPAMIL SYRINGE (5 MG/10 ML) INTRAARTER ONE (14:06)
[2024-11-14] MEDS: HEPARIN SODIUM 1,000 UN/ML (10ML VL) IV ONE (14:12)
[2024-11-14] MEDS: IV FLUID CONTINUATION 1,000 ML IV ONE (14:14)
[2024-11-14] MEDS: HEPARIN SODIUM,PORCINE 10,000 UNIT in SODIUM CHLORIDE 0.9% 1,000 ML IRRIGATION PRN (14:15)
[2024-11-14] MEDS: HEPARIN SODIUM,PORCINE (1 ML) 2,500 UNIT in SODIUM CHLORIDE 0.9% 250 ML IRRIGATION PRN (14:15)
[2024-11-14] MEDS ORDERED: RX INFO: IV CONTRAST WAS GIVEN 1 EACH MISC MISCELLANE PRN (14:26)
[2024-11-14] MEDS: IOPAMIDOL-370 100ML BTL INJ ONE (14:27)
--- NOTE | 2024-11-14 14:28 | P.CARDCATH ---
Date of Procedure: 11/14/24 Description of Procedure: DIAGNOSTIC CORONARY ANGIOGRAPHY and LEFT HEART CATH REPORT PROCEDURES PERFORMED: Left heart catheterization Selective coronary angiography Moderate conscious sedation 17 mins [Ultrasound assisted] Right radial access INDICATION: 1. Unstable angina 2. Frequent PVCs requiring flecainide therapy CONSENT: I have explained the procedural steps of above-mentioned procedures in layman's terms to the patient. I discussed the risks (including but not limited to stroke, emergent vascular or cardiac surgery or ), benefits and alternative therapies for the above-mentioned procedure. I discussed the risks of sedation/analgesia and blood product administration (if indicated). The patient has indicated understanding and acceptance of these risks. Conscious Sedation: Patient's ECG, heart rate, blood pressure, pulse oximetry were monitored throughout the duration of procedure under my direct supervision. [2] mg Versed and [50] mcg Fentanyl were used for induction of moderate conscious sedation. Total duration of moderate concious sedation 17 minutes. PROCEDURAL DETAILS: Patient was prepped and draped in sterile fashion. 1% lidocaine was infiltrated over the right radial artery. Right radial access was obtained via modified seldinger technique. [Ultrasound was used for radial access]. Medications: 5mg of verapamil was administed in the radial sheet. 6000 Units of Heparin was administed once the catheter reached the aortic root Wires and Catheter used: J wire was advanced under fluroscopy to get to aortic root. 5 slovenian JR 4 diagnostic catheter was utilized obtain left ventricular pressure and pressure gradint across aortic valve. 5 slovenian JR 4 diagnostic catheter was used to selectively engage the right coronary ostium. 5 slovenian JL 3.5 diagnostic catheter was utilized to selectively engage the left coronary ostium. Angiographic images were reviewed in detail. Catheter and wire were removed. Radial sheet was flushed. The right radial sheath was removed and a TR band was placed. Patent hemostasis was achieved. The patient tolerated the procedure well. Patient was transported back to the post catheterization holding area in stable condition. TECHNICAL DETAILS Total radiation: 244 mGy Total fluro time: 1.7 minutes Total contrast used: Isovue [60 ml] Complications: [none] Estimated Blood loss: less than 15 ml HEMODYNAMICS: Aortic Pressure: 115/65 mmHg. LV pressure: 118/8 mmHg. LVEDP 15 mmHg. There was no significant gradient across the aortic valve. SELECTIVE CORONARY ARTERIOGRAPHY: LEFT MAIN: The left main is short and large caliber vessel. It bifurcates into the LAD and circumflex. Left main appears angiographically normal. LEFT ANTERIOR DESCENDING CORONARY ARTERY: LAD is a large caliber vessel which wraps around to the apex. Proximal mid and distal LAD appears angiographically patent. Mid LAD gives rise to a large diagonal branch which appears angiographically patent. LEFT CIRCUMFLEX CORONARY ARTERY: It is nondominant vessel. Left circumflex is a moderate caliber vessel. Proximal LCx appears angiographically patent. Mid LCx has mild 30% focal disease. Distal LCx is angiographically patent. It gives rise to a medium size OM branch which appears angiographically patent. RIGHT CORONARY ARTERY: Dominant vessel. The right coronary artery is a large caliber vessel. It appears angiographically patent. Distal LAD gives PDA and PL branch which appears angiographically patent. IMPRESSION: Angiographically patent arteries with minimal nonobstructive disease in the LCx Mildly elevated LVEDP PLAN: Aggressive risk factor modification per most recent ACC/AHA guidelines. 125 cc fluids for 4 hours Discharge home in 4 hours Follow-up in the office in 1-2 weeks. Performing Physician Carlos Byers MD, FACC, RPVI Thank you for allowing [facility] to participate in this patient's care. Feel free to reach out in case of any followup questions.
[2024-11-14 14:47] VITALS: TEMP 97.6
[2024-11-14] MEDS: SODIUM CHLORIDE 0.9% 1,000 ML IV SCH (15:18)
[2024-11-14 18:32] VITALS: BP 119/75; PULSE 67
[2024-11-14] MEDS ORDERED: LOSARTAN 50 MG TAB PO SCH (21:00)
--- NOTE | 2024-11-15 00:07 | P.DS ---
Providers Date of admission: 11/13/24 11:03 Attending physician: Asim Lopez MD Consults: 11/13/24 10:45 Consult Physician Urgent Consulting Provider: Carlos Byers Consult Reason/Comments: chest pain Do you want consulting provider notified?: Yes Primary care physician: Kim Weiss Hospital Course: Diagnoses: Palpitation with mild sinus tachycardia. Rule out cardiac arrhythmia Diabetes mellitus Hypertension Hyperlipidemia History of osteoarthritis Hypothyroidism Hospital course: This is a pleasant 69 years old male with past medical history of multiple medical problems as below Patient presents because of palpitation pounding heart in his chest started this morning for a few hours. Patient was evaluated by sample paster Patient was evaluated by sample paster and he underwent cardiac cath showing mild nonobstructive disease in the left circumflex. Collar Feller recommended medical management with aggressive factor modification. Also cleared him for discharge in [address] Davis evaluate the patient for his abnormal EKG showing PVC with bigeminy or trigeminy pattern. He recommended flecainide sample paster team send the prescription to the pharmacy. With the plan for close outpatient follow-up with Dr. Davis in 1 week for stress test while on flecainide. Because it is highly specialized medication flecainide management was deferred to cardiology team Patient was walking in his room freely and independently. No other new complaint no chest pain or dyspnea. Patient eager to go home today. Patient was cleared for discharge by sample paster. Problems and management plan were discussed with the patient and he verbalized understanding and acceptance Patient was found stable and can be discharged home in guarded prognosis however he needs follow-up as an outpatient. Patient was instructed to follow up with PCP or here within one week and patient agrees Patient was instructed to follow-up with sample paster Dr. Davis in 1 week and he agrees Physical exam Gen: patient is a AAOx3, no distress CVS: S1-S2, RRR, no murmur Lungs: B/L CTA, no wheezing Abdomen: soft, no distention, no tenderness, positive bowel sounds Extremity: no leg edema or induration Time spent more than 35 minutes Patient Condition at Discharge: Fair Plan - Discharge Summary New Discharge Prescriptions: New Flecainide Acetate [Tambocor] 100 mg PO BID #60 tablet Continue Atorvastatin [Lipitor] 10 mg PO HS Metoprolol Tartrate [Lopressor] 25 mg PO BID hydroCHLOROthiazide [Hydrodiuril] 25 mg PO QAM Losartan Potassium 50 mg PO HS Aspirin [Adult Low Dose Aspirin EC] 81 mg PO DAILY Esomeprazole Magnesium [NexIUM] 20 mg PO HS Ferrous Sulfate [Iron (65 MG Elemental)] 325 mg PO DAILY Cyanocobalamin (Vitamin B-12) [Vitamin B-12] 5,000 mcg PO DAILY metFORMIN HCL 500 mg PO BID Alfuzosin HCl [Alfuzosin HCl ER] 10 mg PO HS Ketoconazole 2% Cream [Nizoral 2%] 1 applic TOPICAL BID PRN PRN Reason: flare up on groin Cholecalciferol [Vitamin D3 (25 Mcg = 1000 Iu)] 50 mcg PO DAILY Budesonide/Formoterol Fumarate [Breyna 160-4.5 Mcg Inhaler] 2 puff INHALATION RT-BID Fluorouracil 5% Cream 1 applic PO BID Hydrocortisone Cream [Hydrocortisone 2.5% Cream] 1 applic TOPICAL BID PRN PRN Reason: flare up on groin Discharge Medication List Atorvastatin [Lipitor] 10 mg PO HS 02/08/16 [History] Losartan Potassium 50 mg PO HS 02/08/16 [History] Metoprolol Tartrate [Lopressor] 25 mg PO BID 02/08/16 [History] hydroCHLOROthiazide [Hydrodiuril] 25 mg PO QAM 02/08/16 [History] Aspirin [Adult Low Dose Aspirin EC] 81 mg PO DAILY 09/01/16 [History] Esomeprazole Magnesium [NexIUM] 20 mg PO HS 04/22/19 [History] Cyanocobalamin (Vitamin B-12) [Vitamin B-12] 5,000 mcg PO DAILY 10/26/21 [History] Ferrous Sulfate [Iron (65 MG Elemental)] 325 mg PO DAILY 10/26/21 [History] Alfuzosin HCl [Alfuzosin HCl ER] 10 mg PO HS 11/13/24 [History] Budesonide/Formoterol Fumarate [Breyna 160-4.5 Mcg Inhaler] 2 puff INHALATION RT-BID 11/13/24 [History] Cholecalciferol [Vitamin D3 (25 Mcg = 1000 Iu)] 50 mcg PO DAILY 11/13/24 [History] Fluorouracil 5% Cream 1 applic PO BID 11/13/24 [History] Hydrocortisone Cream [Hydrocortisone 2.5% Cream] 1 applic TOPICAL BID PRN 11/13/24 [History] Ketoconazole 2% Cream [Nizoral 2%] 1 applic TOPICAL BID PRN 11/13/24 [History] metFORMIN HCL 500 mg PO BID 11/13/24 [History] Flecainide Acetate [Tambocor] 100 mg PO BID #60 tablet 11/14/24 [Rx] Follow up Appointment(s)/Referral(s): Kim Weiss MD [Primary Care Provider] - 1-2 days Gunner Leach MD [STAFF PHYSICIAN] - 1 Week Patient Instructions/Handouts: Heart Catheterization (DC) Activity/Diet/Wound Care/Special Instructions: heart healthy diet activity is restricted till you see your doctor Discharge Disposition: HOME SELF-CARE
[2024-11-16] MEDS ORDERED: metFORMIN 500 MG TAB PO SCH (21:00)
== END 2024-11-14 19:52 | disposition home or self-care (01) ==
LOC: EC 08:43 → 6NMEDSUR 11:03
PROVIDERS: ADMIT Internal Medicine; ATTEND Internal Medicine
DX: R07.9 Chest pain, unspecified (principal); R00.2 Palpitations; I49.3 Ventricular premature depolarization; R00.8 Other abnormalities of heart beat; R00.0 Tachycardia, unspecified; E03.9 Hypothyroidism, unspecified; M19.90 Unspecified osteoarthritis, unspecified site; E11.9 Type 2 diabetes mellitus without complications; I10 Essential (primary) hypertension; E78.5 Hyperlipidemia, unspecified; G47.30 Sleep apnea, unspecified; K21.9 Gastro-esophageal reflux disease without esophagitis; Z79.51 Long term (current) use of inhaled steroids; Z79.82 Long term (current) use of aspirin; Z79.84 Long term (current) use of oral hypoglycemic drugs; Z79.899 Other long term (current) drug therapy; Z88.0 Allergy status to penicillin
CPT/HCPCS: 96360; 99285; 36415; 93005; 80061; 80053; 84443; 83735; 84484; 85025; 85610; 85730; 71046; G0378 ×2; C1769 ×2; C1894; J2250; J1644 ×3; J2003; J3010; Q9967